=== PATIENT | female | born 1955 | race African-American/Black ===

== ENCOUNTER 2018-06-06 14:06 | Inpatient (IN) | payer OTHER ==
[~2018-06-06] VITALS: Ht 170.2 cm; Wt 79.8 kg
[~2018-06-06 14:06] MED LIST: ACET-2619 PO; ALBU3SOL83 IH; ATEN50TA2 PO; CITA20TA15 PO; CLON0.1T42 PO; COL250 PO; DIL1I IVP; DILT60TA94 PO; LOV40I SUBQ; METO-50 PO; MORP4SOL14 IVP; MSCON30 PO; OXYC5TAB3 PO; SACC250C1 PO; [UNRECOGNIZED DRUG - CODE] IVP
[2018-06-06 14:19] VITALS: BP 115/72
--- NOTE | 2018-06-06 14:20 | NUR ---
PT BROUGHT TO ED BED 3
--- NOTE | 2018-06-06 14:25 | NUR ---
63 YO F BIBA FOR N/V, SOB. PER EMS "PT WAS LYING SUPINE AT HOE IN VOMIT" WITH POOR RR NON REBREATHER APPLIED AT 15L/ MIN O2 SAT FROM 80 TO 97. PT WITH LABORED BREATHS AND AUDIBLE BS. RONCHI , WHEEZES NOTED ON AUSCALTATION. ANB SOFT NON TENDER. NO ACTIVE VOMITING AT THIS TIME. BODY WITH RIGID FORM. LLE WITH FULL THICKNESS CIRCUMFERENTIAL WOUND , PITTING EDEMA NOTED TO BILAT FEET. PT ALERT AND ORINTED TO NAME PLACE AND EVENT. ER MD MADE AWARE, PT PLACED IN GOWN. PT POSITIONED FOR COMFORT, WILL CONTINUE TO MONITOR.
[2018-06-06] MEDS ORDERED: NACL 0.9% 1,000 ML IV SCH ×2 (14:41→18:48)
[2018-06-06] MEDS ORDERED: PIPERACILLIN/TAZOBACTAM 3.375 GM in DEXTROSE 5% 50 ML IV ONE (14:45)
[2018-06-06] MEDS ORDERED: IPRATROPIUM 0.02% 0.5 MG/2.5 ML NEBU INH ONE (14:45)
[2018-06-06] MEDS ORDERED: methylPREDNISolone SS 125 MG/2 ML VIAL IVP ONE (14:45)
[2018-06-06] MEDS ORDERED: ALBUTEROL 0.083% 2.5 MG/3 ML NEBU INH ONE (14:45)
[2018-06-06] MEDS ORDERED: CLINDAMYCIN 900 MG in DEXTROSE 5% 100 ML IV ONE (14:45)
[2018-06-06] MEDS ORDERED: HYDROmorphone PFS 2 MG/ML SYR IM ONE (14:55)
[2018-06-06] MEDS ORDERED: LORazepam 2 MG/ML VIAL IM/IVP ONE (14:55)
--- NOTE | 2018-06-06 15:03 | NUR ---
RT AT BEDSIDE
--- NOTE | 2018-06-06 15:19 | NUR ---
TIME OUT PREFORMED FOR RIGHT INTERNAL JUGULAR VEIN C-LINE PLACEMENT WITH DR PEREZ, OCCUPATIONAL PHYSICIAN AND RN AT BEDSIDE. ALL AGREE.
[2018-06-06 15:29] LABS: HEMOGLOBIN 12.2 g/dL (12.0-16.0); MEAN CORPUSCULAR HEMOGLOBIN 24 pg (27-31); MEAN CORPUSCULAR HGB CONC 31 g/dL (33-37); PLATELET COUNT (AUTO) 363 K/uL (140-450); RED BLOOD CELL COUNT(AUTO) 5.06 MIL/uL (4.20-5.40); RED CELL DISTRIBUTION WIDTH 20.5 % (11.6-13.7); WHITE BLOOD COUNT (AUTO) 10.5 K/uL (4.8-10.8)
--- NOTE | 2018-06-06 15:30 | NUR ---
3 HEP LOCKS USED FOR CENTRAL LINE PLACEMENT WITH DR PEREZ
[2018-06-06 15:35] LABS: CARBON DIOXIDE 25.7 mmol/L (21-32); CREATININE 1.3 mg/dL (0.6-1.3); POTASSIUM 3.7 mmol/L (3.5-5.1)
[2018-06-06 15:41] LABS: ALBUMIN 2.6 g/dL (3.4-5.0); TOTAL BILIRUBIN 1.6 mg/dL (0.0-1.0)
[2018-06-06 15:55] LABS: LYMPHOCYTES % (MANUAL) 7 % (20-46)
[2018-06-06 15:56] LABS: PROTHROMBIN TIME 11.6 secs (10.8-13.4)
[2018-06-06 15:57] LABS: AMYLASE 146 U/L (25-115); LIPASE 340 U/L (73-393)
[2018-06-06 16:02] LABS: FIBRINOGEN > 500 mg/dL (200-400)
--- NOTE | 2018-06-06 16:02 | NUR ---
XRAY AT BEDSIDE
[2018-06-06 16:07] LABS: D-DIMER 3050 ng/ml (0-400)
[2018-06-06 16:09] LABS: CREATINE KINASE MB 3.7 ng/mL (0-3.6)
[2018-06-06 16:09] LABS: APPEARANCE,URINE CLEAR (CLEAR); BILIRUBIN,URINE 1+ (NEGATIVE); BLOOD, URINE NEGATIVE (NEGATIVE); COLOR,URINE YELLOW (YELLOW); LEUKOCYTE ESTERASE ,URINE NEGATIVE (NEGATIVE); NITRITE, URINE NEGATIVE (NEGATIVE); PH,URINE 5.5 (5.0-9.0); UGLUCOSE NEGATIVE (NEGATIVE)
[2018-06-06 16:13] LABS: RBC,URINE 0-5 (RARE) /HPF (0-5)
[2018-06-06] MEDS ORDERED: PIPERACILLIN/TAZOBACTAM 3.375 GM VIAL IV ONE ×2 (16:28→21:05)
[2018-06-06] MEDS ORDERED: CLINDAMYCIN 900 MG/6 ML VIAL IV ONE (16:28)
--- NOTE | 2018-06-06 17:46 | NUR ---
DAUGHTER AT BEDSIDE FELICITAS-[phone]- DAUGHTER RJ - [phone] -
--- NOTE | 2018-06-06 18:08 | NUR ---
TOLD THAT WE HAVE AUTHORIZATION FROM [facility] TO ADMIT
[2018-06-06] MEDS ORDERED: ONDANSETRON 4 MG/2 ML VIAL IVP PRN (18:50)
[2018-06-06] MEDS ORDERED: BLOOD GLUCOSE MONITORING 1 DEV DEV FS SCH (18:50)
[2018-06-06] MEDS ORDERED: INSULIN REGULAR, HUMAN 100 UNIT in NACL 0.9% 100 ML IV SCH ×2 (18:50)
[2018-06-06] MEDS ORDERED: MORPHINE SULFATE 2 MG/ML SYR IVP PRN (18:50)
[2018-06-06] MEDS ORDERED: ACETAMINOPHEN 325 MG TAB PO PRN (18:50)
[2018-06-06] MEDS ORDERED: HYDROcodone/APAP 5/325 MG 1 TAB TAB PO PRN (18:50)
[2018-06-06] MEDS ORDERED: LORazepam 2 MG/ML VIAL IVP PRN (18:50)
[2018-06-06] MEDS ORDERED: DEXTROSE 50% 50 ML SYR IVP PRN ×2 (18:50→20:30)
[2018-06-06] MEDS ORDERED: MORPHINE SULFATE 4 MG/ML SYR IVP PRN (19:00)
[2018-06-06] MEDS ORDERED: HYDROmorphone 1 MG/ML AMP IVP PRN (19:00)
[2018-06-06] MEDS ORDERED: DOCUSATE SODIUM 250 MG GELCAP PO PRN (19:00)
[2018-06-06] MEDS ORDERED: cloNIDine 0.1 MG TAB PO PRN (19:00)
[2018-06-06] MEDS ORDERED: VANCOMYCIN PER PHARMACY MC PRN (19:00)
[2018-06-06] MEDS ORDERED: DIPHENHYDRAMINE 25 MG IVP PRN (19:00)
[2018-06-06] MEDS ORDERED: ALBUTEROL 0.083% 2.5 MG/3 ML NEBU INH SCH (19:00)
[2018-06-06] MEDS ORDERED: OXYCODONE HCL 5 MG PO PRN (19:00)
--- NOTE | 2018-06-06 19:30 | NUR ---
ADMITTED 63 YEARS OLD FEMALE FROM ER VIA [facility], ADMITTED FOR N/V AND SOB. SEE NURSING ADMISSION ASSESSMENT AND HISTORY. PICTURES TAKEN IN ER, AWAITING TO BRING IT UP. CARE BOARD NOTED. CALL LIGHT WITHIN REACH.
--- NOTE | 2018-06-06 19:34 | NUR ---
Patient will be admitted to care of Dr. Gr. Admited to [facility]. Will go to room 110a. Belongings list completed. Report to Shey mancilla.
[2018-06-06] MEDS ORDERED: INSULIN LISPRO SLIDING SCALE 100 UNITS/ML VIAL SUBQ PRN (20:30)
[2018-06-06] MEDS: ALBUTEROL SULFATE/IPRATROPIU 3 ML SOL IH SCH (20:38)
[2018-06-06] MEDS ORDERED: VANCOMYCIN 1,500 MG in DEXTROSE 5% 500 ML IV SCH (20:45)
--- NOTE | 2018-06-06 20:52 | NUR ---
SPOKE W/ DR. FERNANDEZ AND SAID TO D/C ALBUTEROL Q6H AND JUST KEEP DUONEB Q6H
[2018-06-06] MEDS ORDERED: ENOXAPARIN 40 MG/0.4 ML SYR SUBQ SCH (21:00)
[2018-06-06] MEDS: MORPHINE TAB ER 30 MG TABER PO SCH (21:00)
[2018-06-06] MEDS ORDERED: METOPROLOL TARTRATE 150 MG PO SCH (21:00)
[2018-06-06] MEDS ORDERED: VANCOMYCIN 1,000 MG VIAL ONE (21:04)
[2018-06-06] MEDS ORDERED: VANCOMYCIN 500 MG VIAL ONE (21:05)
[2018-06-06] MEDS: BLOOD GLUCOSE MONITORING 1 DEV DEV FS SCH (21:22)
[2018-06-06] MEDS: PIPERACILLIN/TAZOBACTAM 3.375 GM in DEXTROSE 5% 50 ML IV SCH (21:22)
--- NOTE | 2018-06-06 21:30 | NUR ---
REFUSE NGT INSERTION, AWARE.
[2018-06-06] MEDS ORDERED: diphenhydrAMINE 50 MG/ML VIAL IVP PRN (21:45)
[2018-06-06] MEDS ORDERED: PNEUMOCOCCAL VACCINE 23 MCG/0.5 ML VIAL IMVAC SCH (23:05)
[2018-06-07] MEDS ORDERED: DILTIAZEM HCL 60 MG PO SCH
[2018-06-07] MEDS ORDERED: PIPERACILLIN/TAZOBACTAM 2.25 GM in DEXTROSE 5% 50 ML IV SCH ×2
[2018-06-07] MEDS: ALBUTEROL SULFATE/IPRATROPIU 3 ML SOL IH SCH ×6 (00:13→22:55)
--- NOTE | 2018-06-07 00:24 | NUR ---
SAO2 DECREASED TO 89% PLACED ON 6LPM OXYMIZER, HR-116, SAO2-93%, PT STILL TACHYPNEA RR-28-32BPM
[2018-06-07 00:25] VITALS: BP 115/66
[2018-06-07] MEDS: DILTIAZEM 60 MG TAB PO SCH ×4 (01:18→17:28)
[2018-06-07] MEDS ORDERED: PIPERACILLIN/TAZOBACTAM 3.375 GM VIAL IV ONE (04:31)
[2018-06-07] MEDS: PIPERACILLIN/TAZOBACTAM 3.375 GM in DEXTROSE 5% 50 ML IV SCH (04:32)
[2018-06-07 04:49] VITALS: BP 112/73
--- NOTE | 2018-06-07 04:53 | NUR ---
REPOSITIONED. VITAL SIGNS STABLE. AFEBRILE. ASLEEP EASILY AROUSABLE. CALL LIGHT WITHIN REACH.
[2018-06-07] MEDS: BLOOD GLUCOSE MONITORING 1 DEV DEV FS SCH ×4 (05:36→20:42)
[2018-06-07 07:30] LABS: ALBUMIN 1.9 g/dL (3.4-5.0); ANION GAP 14.2 (8-16); CARBON DIOXIDE 23.9 mmol/L (21-32); CREATININE 1.9 mg/dL (0.6-1.3); POTASSIUM 4.1 mmol/L (3.5-5.1); TOTAL BILIRUBIN 1.3 mg/dL (0.0-1.0)
--- NOTE | 2018-06-07 07:32 | NUR ---
ENDORSED CARE AT BEDSIDE WITH BEVERLY LEWIS, PATIENT IN STABLE CONDITION. Addendum: 06/07/18 at 0733 by Alyssa Rose RN ENDORSED CARE AT BEDSIDE WITH LIOR LEWIS, PATIENT IN STABLE CONDITION.
[2018-06-07 07:33] LABS: WHITE BLOOD COUNT (AUTO) 17.6 K/uL (4.8-10.8)
[2018-06-07 07:34] LABS: HEMOGLOBIN 11.5 g/dL (12.0-16.0); MEAN CORPUSCULAR HEMOGLOBIN 24 pg (27-31); MEAN CORPUSCULAR HGB CONC 31 g/dL (33-37); MEAN CORPUSCULAR VOLUME 77.1 fL (80-94); PLATELET COUNT (AUTO) 315 K/uL (140-450); RED CELL DISTRIBUTION WIDTH 20.2 % (11.6-13.7)
--- NOTE | 2018-06-07 07:35 | NUR ---
RECEIVED PT FROM PAPER FINAL INSPECTOR NURSE, BLAYNE, PT IS AWAKE AND ON A HIGH WINSLOW'S, SIDE RAILS ARE UP AND CALL LIGHT WITHIN REACH, PT IS ON OXYMIZER AT 6L, IN PLACE, HAS AN IV LINE ON THE RT IJ TRIPLE LUMEN, INTACT AND MOLINA CATHETER IN PLACE. FALL PRECAUTION INITIATED AND ENFORCED. PT HAS A OPEN DEEP TISSUE WOUNDS ON THE RT LOWER LEG AND RT HEEL, WITH DRESSING IN PLACE. NO SIGN OF DISTRESS NOTED ON THE PT. WILL CONTINUE TO MONITOR.
[2018-06-07 07:40] LABS: LYMPHOCYTES % (MANUAL) 6 % (20-46); MONOCYTES % (MANUAL) 6 % (5-12)
[2018-06-07 08:00] VITALS: BP 120/75
--- NOTE | 2018-06-07 08:20 | NUR ---
PT IS IN MILD DISTRESS. SUCTIONED PT USING NASAL CATHETER GOT SCANT AMOUNT OF THICK WHITE SECRETIONS. RN AWARE HHN TX GIVEN. PT VERBALIZED FELLING A LOT BETTER. PT BACK ON OXIMIZER. WILL CONTINUE TO MONITOR.
[2018-06-07] MEDS ORDERED: ASPIRIN 81 MG TAB.CHEW PO SCH (09:00)
[2018-06-07] MEDS ORDERED: CITALOPRAM 20 MG TAB PO SCH (09:00)
[2018-06-07] MEDS ORDERED: ENOXAPARIN 40 MG/0.4 ML SYR SUBQ SCH (09:00)
--- NOTE | 2018-06-07 09:08 | NUR ---
PATIENT HAS BEEN SCREENED AND CATEGORIZED HIGH NUTRITION RISK. PATIENT WILL BE SEEN WITHIN 1-2 DAYS OF ADMISSION. 06/07/18 06/08/[address]
--- NOTE | 2018-06-07 09:30 | NUR ---
WOUND CARE WAS DONE BY WOUND CARE NURSE, ASSISTED, AND REINFORCED WITH DRESSING. WOUND CULTURE WAS DONE ALSO AND SAMPLE WAS SENT TO LAB.
[2018-06-07] MEDS: LACTOBACILLUS RHAMNOSUS GG 1 EACH CAP PO SCH ×2 (09:57→20:43)
[2018-06-07] MEDS: MORPHINE TAB ER 30 MG TABER PO SCH ×2 (09:59→20:44)
[2018-06-07] MEDS: METOPROLOL 50 MG TAB PO SCH ×2 (10:01→20:50)
--- NOTE | 2018-06-07 10:02 | NUR ---
CM NOTE PER [facility]/[employer] MANAGEMENT CM COORDINATOR TRISTIN PH# [phone] [phone], REVIEWS SHOULD ONLY BE SENT TO [facility]. ADMISSION CHART REVIEW DONE. INITIAL REVIEW FAXED TO [facility] [phone] PH# [phone] BLU EXT [phone].
[2018-06-07] MEDS ORDERED: NON-FORMULARY ITEM (Acetaminophen (Tylenol) 650 MG) PO PRN (11:20)
--- NOTE | 2018-06-07 11:30 | NUR ---
DR. STEPHENS MADE A VERBAL ORDER FOR A HEPARIN DRIP FOR THE PT. WILL CARRY OUT ORDER.
[2018-06-07] MEDS ORDERED: HEPARIN PER PHARMACY MC PRN (11:35)
[2018-06-07] MEDS ORDERED: ALBUTEROL SULFATE/IPRATROPIU 3 ML SOL IH PRN (11:40)
[2018-06-07] MEDS ORDERED: ACETYLCYSTEINE 10% (100 MG/ML) 100 MG/ML VIAL INH PRN (11:45)
[2018-06-07] MEDS ORDERED: ACETAMINOPHEN 325 MG TAB PO PRN (11:55)
[2018-06-07 12:00] VITALS: BP 120/75
--- NOTE | 2018-06-07 12:02 | NUR ---
PATIENT PRESENTING WITH LABORED BREATHING ASSESSMENT DONE NASOTRACHEAL SUCTION REQUIRED AT THIS TIME USING STERILE TECHNIQUE APPLIED LUBRICANT TO THE DISTAL END OF A 14 FR SUCTION CATHETER INSERTED INTO RIGHT NARES X 2 AND LEFT NARES X1 OBTAINING COPIOUS THICK YELLOW SECRETIONS PRE AND POST OXYGENATION PROVIDED TOLERATED PROCEDURE WELL WITHOUT INCIDENT FOLLOWED BY HHN THERAPY REPORTED FINDING TO DR CHAZ STEPHENS NEW ORDERS CHANGE MUCOMYST FREQUENCY FOR Q6PRN TO Q4 X 3 DAYS
--- NOTE | 2018-06-07 12:14 | NUR ---
WOUND CARE EVALUATION NOTE: REASON FOR EVALUATION: RLE WOUND SKIN ASSESSMENT DONE WITH THIS 63 Y/O FEMALE PT ADMITTED FROM HOME TO [facility] WITH INITIAL DX SOB. PAST MEDICAL HX INCLUDES HX OF CVA AND DYSPHAGIA, DVT AND PULMONARY EMBOLI, CARDIAC ARRHYTHMIA S/P CARDIAC PACER AND CHRONIC WOUND TO RLE. ALL ABOVE INFORMATION OBTAINED FROM ADMISSION H&P. AND PT. PT IS AAX4. PER PT THAT SHE HAS BEEN FOLLOWED VASCULAR/ SHADE CLOTH FINISHER TO RIGHT LOWER LEG WOUND WITH RECENT DEBRIDEMENT. PT. ADMITTED WITH MULTIPLE PRESSURE ULCERS. LABS ARE WBC 17.6, H/H 11.5/37, GLUCOSE 165 AND ALBUMIN 1.9. PT IS AWAKE. SKIN IS WARM AND DRY. MULTIPLE HEALED SCARS TO HANDS, LEGS AND TRUNK AREA. BLE NO HAIR GROWTH, NO EDEMA. RIGHT DORSAL PEDAL PULSES PRESENT AND WEAK. POOR CAPILLARY REFILLED. F/C PATENT WITH MODERATE AMOUNT OF DARK YELLOW URINE OUTPUT. INCONTINENT OF BOWEL. PLAN OF CARE DISCUSSED WITH PRIMARY RN AND PT. PT. VERBALIZES UNDERSTAND. DR. STEPHENS AT BED SIDE PLAN DISCUSSED WITH REQUESTING OF VASCULAR/ PODIATRY CONSULT DR. STEPHENS SAID NO NEED AT THIS TIME. INTEGUMENTARY: -WOUND CULTURE TO RLE WOUND -RLE VASCULAR ULCER WITH S/P DEBRIDEMENT FULL THICKNESS TISSUE LOSS WITH LARGE, FULL CIRCUMFERENCE OF RLE 18CM IN LENGTH AND 0.4CM IN DEPTH, WOUND BED IS 100% GRANULATING TISSUE, MOIST, NO ODOR. AREA EXTENDED TO RIGHT HEEL PRESSURE INJURY. RIGHT DORSAL FOOT ISCHEMIA BLACK COLOR, WARM TO TOUCH. PAIN 4/10 -RIGHT HEEL PRESSURE INJURY UN-STAGEABLE 7X6CM, WOUND BED 100% BROWN SOFT SCAB WITH WOUNG EDGE PALE PINK ENTENDTO RLE WOUND, IRREGULAR WOUND SHAPE -RIGHT ISCHIUM PRESSURE INJURY UN-STAGEABLE 3.5X2.5 CM 100 % YELLOW SLOUGH ON WOUND BED, MOIST, NO ODOR -SACRALCOCCYX PRESSURE INJURY STAGE 3, 2X3X0.5CM, WOUND BED IS BLANCHABLE RED, MOIST AND NO ODOR - LEFT ISCHIUM PRESSURE INJURY STAGE 1, 3X3 CM SKIN THIN AND FRAGILE -ABDOMEN DISTENTED, TENDER TO TOUCH. -LLE DRYNESS, LEFT HEEL BLANCHABLE REDNESS RECOMMENDATIONS: -CLEANSE RIGHT LOWER LEG WOUND WITH WOUND CARE SOLUTIONS, PAT DRY, APPLY THERAHONEY SHEET, COVER WITH DRY DRESSING AND WRAP WITH KERLIX ROLLS QOD AND PRN IF SOILING -CLEANSE RIGHT ISCHIUM AND SACRALCOCCYX WOUNDS WITH WOUND CARE SOLUTIONS, PAT DRY, APPLY THERAHONEY SHEET, COVER WITH TATUM DRESSING CHANGE QOD AND PRN IF SOILING -CLEANSE LEFT ISCHIUM WOUND WITH WOUND CARE SOLUTIONS, PAT DRY, COVER WITH OPTICFORM AND CHANGE PRN IF SOILING -APPLY HYDRAGUARD TO LLE AND LEFT HEEL BIDWC - HEEL RAISER TO BILATERAL HEELS -OFFLOAD BILATERAL HEELS BY PLACING PILLOWS UNDER CALVES UNLESS OTHERWISE CONTRAINDICATED -PRESSURE REDISTRIBUTION SURFACE -TURN AND REPOSITION Q2H, OFFLOAD SACROCOCCYX AND R/L ISCHIUM -UPON DISCHARGE,PLEASE CONTINUE TO FOLLOW VASCULAR/PODIATRY CARE PREVIOUS ARRANGED. -HOME HEALTH CARE NURSE TO FOLLOW UP WOUND CARE UPON DISCHARGE. ALL ABOVE RECOMMENDATIONS DISCUSSED WITH PRIMARY RN. WILL FOLLOW UP PT Q7-10 DAYS. PLEASE CONTACT WOUND CARE NURSE FOR ANY QUESTION AND CHANGE OF WOUND CONDITION. Addendum: 06/07/18 at 1241 by Lucy Hughes (Grace) RN PT. ALSO HAS HX OF OSTEOMYELITIS TO RIGHT ANKLE. CENTRAL LINE TO RIJ DRESSING DCI. COMORBIDITIES REALTED TO DELAY WOUND HEALING AND FURTHER SKIN BREAKS EXPLAINED TO PT.
--- NOTE | 2018-06-07 12:26 | NUR ---
SPOKE TO [facility] WHO WILL DO THE PULMONARY VQ SCAN FOR THE PT REGARDING THE PROCEDURE AND PT WAS ASKED IF SHE CAN TOLERATE TO BE IN A SUPINE POSITION DURING THE TEST FOR ABOUT 45 MINS WITH HER ARMS OVER HER HEAD AND THE PT SAID THAT SHE CANNOT DO IT, INFORMED DR. STEPHENS ABOUT IT AND SAID TO JUST DOCUMENT THAT THE PT REFUSED IT, INFORMED UBALDO OF WHAT THE DR. STEPHENS SAID AND [facility] ACKNOWLEDGED.
--- NOTE | 2018-06-07 12:29 | NUR ---
SWALLOW EVALUATION IS BEING DONE TO THE PT NOW BY ELAINA GARCIAATOR.
--- NOTE | 2018-06-07 12:34 | NUR ---
PT'S PICTURE OF THE WOUND WAS JUST HANDED ON NOW FROM ER AND PER DIETITIAN ASSISTANT ROSE, ER CHARGE NURSE SAID THAT THEY ALREADY MADE AN INCIDENT REPORT.
--- NOTE | 2018-06-07 12:57 | NUR ---
S.T. BEDSIDE SWALLOW EVAL COMPLETED See report for details. Pt presents with mod-severe oropharyngeal dysphagia c/b labial spillage of nectar thick liquids, delayed pharyngeal swallow response and coughing after swallows of thin and nectar thick liquids. Most notably, however, is pt's respiratory status, in which breathing was labored throughout eval, with O2 via nasal rebreather. Pt is at high risk for aspiration. Recommend: 1) Honey thick Clear liquid diet; given conservatively--only if pt is awake, alert, not SOB and SpO2 >90%. Hold trays otherwise. Strict aspiration precautions. 2) P.O. meds to be crushed and mixed with purees--only if pt is awake, alert, not SOB and SpO2 >90%. Hold trays otherwise. Strict aspiration precautions. 3) S.T. to follow with tx x 2 days/1 week for P.O. trials and monitoring of pt's tolerance of recommended diet textures. Results and recommendations d/w pt and JOSHUA Yeboah, who both communicated understanding. Time in: 1210 Out: 1255 G8996 CK G8997 CK NOMS LEVEL 4
[2018-06-07] MEDS ORDERED: FOAM DRESSING TP SCH (13:00)
[2018-06-07] MEDS: THERAHONEY WOUND DRESSING TP SCH (13:00)
[2018-06-07] MEDS ORDERED: ACETYLCYSTEINE 10% (100 MG/ML) 100 MG/ML VIAL INH SCH ×2 (13:00→16:00)
[2018-06-07] MEDS: HYDRAGUARD CREAM TP SCH (13:00)
--- NOTE | 2018-06-07 13:00 | NUR ---
PT WAS REPOSITIONED AND HYDRAGUARD CREAM WAS APPLIED TO RT ISCHIUM AND REINFORCED WITH OPTIFOAM DRESSING. LLE AND LEFT HEEL WAS REINFORCED WITH HYDRAGUARD CREAM ALSO.
[2018-06-07] MEDS: PIPER/TAZO 3.375GM/D5W PREMIX 50 ML IV SCH ×2 (13:01→20:43)
[2018-06-07] MEDS ORDERED: hePARIN / DEXT 5% PREMIX 250 ML IV SCH (14:00)
[2018-06-07] MEDS: ACETYLCYSTEINE 10% (100 MG/ML) 100 MG/ML VIAL INH SCH ×3 (14:31→22:55)
--- NOTE | 2018-06-07 15:12 | NUR ---
06/07/18 RD INITIAL ASSESSMENT COMPLETED PLEASE REFER TO NUTRITION ASSESSMENT UNDER CARE ACTIVITY FOR ESTIMATED NUTRITIONAL NEEDS. 1. RECOMMEND CCHO 60, NA 2GM DIET TOLERATED. 2. RECOMMEND NURIA BID. 3. RD TO FOLLOW-UP 2-3 DAYS, HIGH RISK. TREY JESUS, RD
--- NOTE | 2018-06-07 15:20 | NUR ---
PT WAS STARTED ON THE HEPARIN DRIP PER PHARMACY PROTOCOL, WITH CHARGE NURSE, PEDRO VERIFYING AND CO-SIGNING, AT A RATE OF 15ML/HR, INTACT AND INFUSING WELL. WILL MONITOR PT.
[2018-06-07 16:00] VITALS: BP 123/80
--- NOTE | 2018-06-07 16:05 | NUR ---
PT IS OUT OF THE ROOM FOR AN ULTRASOUND OF THE ABDOMEN AND PELVIS.
--- NOTE | 2018-06-07 16:30 | NUR ---
PT IS BACK TO ROOM FROM ULTRASOUND OF THE ABDOMEN AND PELVIS WITHOUT CONTRAST. VITAL SIGNS TAKEN AND IS WITHIN NORMAL LIMITS. WILL MONITOR PT.
--- NOTE | 2018-06-07 17:30 | NUR ---
PT WAS TRANSFERRED TO ROOM 123-A AND WAS PLACED IN A WOUND BED. BLOOD GLUCOSE CHECK DONE AND RESULT IS 136, NO INSULIN COVERAGE NEEDED, VITAL SIGNS TAKEN AND IS WITHIN NORMAL LIMITS, MEDICATION GIVEN AND PT TOLERATED IT. NO SIGN OF DISTRESS NOTED AND WILL CONTINUE TO MONITOR PT.
--- NOTE | 2018-06-07 17:41 | NUR ---
ULTRASOUND OF THE BILATERAL LOWER LEGS IS BEING DONE TO PT NOW.
--- NOTE | 2018-06-07 18:16 | NUR ---
EMPTIED PT'S MERCEDES BULB AND DRAINED 30ML., CHARGE NURSE, PEDRO WAS INFORMED. Addendum: 06/07/18 at 1907 by Edilia Mooney RN THE ABOVE NOTE IS FOR A DIFFERENT PT.
--- NOTE | 2018-06-07 19:08 | NUR ---
PT IS OUT OF THE ROOM TO HAVE A CT OF THE ABDOMEN AND PELVIS WITHOUT CONTRAST.
--- NOTE | 2018-06-07 19:15 | NUR ---
ENDORSED PT TO FINAL DRESSING CUTTER NURSE, MADISON FOR CONTINUITY OF CARE. PT IS STABLE AT THIS TIME AND HAVING A BREATHING TREATMENT.
--- NOTE | 2018-06-07 19:16 | NUR ---
REPORT RECEIVED FROM AM SHIFT NURSE. PT STILL OUT FOR CT SCAN. DAUGHTER WAITING IN ROOM.
--- NOTE | 2018-06-07 19:20 | NUR ---
PT IS BACK TO ROOM AND HEPARIN WAS CONNECTED AND RE-STARTED.
--- NOTE | 2018-06-07 19:21 | NUR ---
RECEIVED PT FROM RADIOLOGY. NO SIGNS OF DISTRESS. PT AWAKE & VERBAL, DENIES ANY PAIN. ON O2@6LPM VIA OXYMIZER. CALL LIGHT WITHIN REACH. ENCOURAGED PT TO CALL NURSE FOR ASSISTANCE PRN. PT VERBALIZED AGREEMENT & ABLE TO RETURN DEMONSTRATE PROPER USE OF CALL BUTTON. WILL CONTINUE TO MONITOR.
[2018-06-07 20:00] VITALS: BP 102/62
--- NOTE | 2018-06-07 20:45 | NUR ---
MEDS DUE GIVEN AT THIS TIME. PT ABLE TO MINE MS CONTIN WHOLE TABS WITH APPLESAUCE. NO SIGNS OF ASPIRATION NOTED. PT IS ALERT, VERBAL, PERIODS OF FORGETFULNESS, STATES FEELING SLEEPY. METOPROLOL HELD D/T DECREASED BP. RETURN TO FACTORY CLERK IN PLACE. CALL LIGHT WITHIN REACH. DAUGHTER SITTING AT BEDSIDE.
[2018-06-07 21:14] LABS: CREATINE KINASE MB 3.2 ng/mL (0-3.6)
[2018-06-07] MEDS ORDERED: VANCOMYCIN 1,250 MG in DEXTROSE 5% 250 ML IV SCH (22:00)
[2018-06-07 22:04] LABS: PROTHROMBIN TIME 13.9 secs (10.8-13.4)
--- NOTE | 2018-06-07 22:15 | NUR ---
PTT 48.8 HEPARIN DRIP NO CHANGE PER PROTOCOL. NEXT PTT ORDERED FOR 0330 . WILL CONTINUE TO MONITOR.
--- NOTE | 2018-06-07 22:50 | NUR ---
DR. MCNALLY (ON-CALL FOR DR. ARORA) PAGED RE: CT ABD/PERLVIS RESULT. AWAITING CALL BACK. PT CURRENTLY SLEEPING COMFORTABLY IN BED, RESPIRATIONS EVEN & UNLABORED. FLACC 0.
--- NOTE | 2018-06-07 23:10 | NUR ---
DR. MCNALLY CALLED BACK & READ BACK REPORT OF CT ABD/PELVIS. MD ORDERED TO KEEP PT NPO, DC ALL PO MEDS, & SURGICAL CONSULT WITH DR. CHAIREZ. ORDERS NOTED & CARRIED OUT. PT NOTIFIED & VERBALIZED UNDERSTANDING.
[2018-06-08] VITALS: BP 102/79
--- NOTE | 2018-06-08 01:30 | NUR ---
PT SLEEPING COMFORTABLY IN BED, AROUSABLE BY VOICE. NO SIGNS OF DISTRESS. PT REMAINS NPO. WOUND CARE MATTRESS FUNCTIONING WELL. PT CLEAN & DRY AT THIS TIME. WILL CONTINUE TO MONITOR.
[2018-06-08] MEDS: HYDRAGUARD CREAM TP SCH ×2 (01:43→13:54)
[2018-06-08] MEDS ORDERED: DEXT 5% / NACL 0.45% 1,000 ML IV SCH (01:45)
[2018-06-08] MEDS: ACETYLCYSTEINE 10% (100 MG/ML) 100 MG/ML VIAL INH SCH ×6 (02:59→23:19)
[2018-06-08] MEDS: ALBUTEROL SULFATE/IPRATROPIU 3 ML SOL IH SCH ×6 (02:59→23:17)
[2018-06-08 04:00] VITALS: BP 100/68
--- NOTE | 2018-06-08 04:14 | NUR ---
BLOOD WAS DRAWN FOR PTT. WILL WAIT FOR RESULT.
--- NOTE | 2018-06-08 04:45 | NUR ---
LAB CALLED FOR CRITICAL PTT RESULT 60.7 HEPARIN DRIP NO CHANGE . WILL ORDER FOR NEXT PTT AFTER 24 HRS PER PROTOCOL.
[2018-06-08] MEDS: PIPER/TAZO 3.375GM/D5W PREMIX 50 ML IV SCH ×2 (04:46→13:00)
[2018-06-08] MEDS: METOPROLOL 5 MG/5 ML VIAL IV SCH ×3 (05:43→18:38)
[2018-06-08] MEDS: BLOOD GLUCOSE MONITORING 1 DEV DEV FS SCH ×4 (05:45→20:51)
[2018-06-08 06:41] LABS: HEMATOCRIT 34.3 % (36-48); HEMOGLOBIN 10.5 g/dL (12.0-16.0); MEAN CORPUSCULAR HEMOGLOBIN 24 pg (27-31); MEAN CORPUSCULAR HGB CONC 31 g/dL (33-37); MEAN CORPUSCULAR VOLUME 77.6 fL (80-94); PLATELET COUNT (AUTO) 311 K/uL (140-450); RED BLOOD CELL COUNT(AUTO) 4.41 MIL/uL (4.20-5.40); RED CELL DISTRIBUTION WIDTH 21.1 % (11.6-13.7); WHITE BLOOD COUNT (AUTO) 24.6 K/uL (4.8-10.8)
[2018-06-08 07:18] LABS: ALBUMIN 1.7 g/dL (3.4-5.0); ANION GAP 13.1 (8-16); CARBON DIOXIDE 25.7 mmol/L (21-32); CREATININE 3.2 mg/dL (0.6-1.3); POTASSIUM 4.8 mmol/L (3.5-5.1); TOTAL BILIRUBIN 1.3 mg/dL (0.0-1.0)
--- NOTE | 2018-06-08 07:25 | NUR ---
HEPARIN DRIP DISCONTINUED PER MD ORDER.
--- NOTE | 2018-06-08 07:30 | NUR ---
REPORT GIVEN TO AM SHIFT NURSE FOR CONTINUITY OF CARE.
[2018-06-08 07:31] LABS: LYMPHOCYTES % (MANUAL) 8 % (20-46); MONOCYTES % (MANUAL) 6 % (5-12)
--- NOTE | 2018-06-08 07:31 | NUR ---
REPORT RECEIVED FROM LEAF CONDITIONER NURSE, PT SLEEPING QUIETLY IN NAD, RESP EVEN UNLABORED ON 6L OXYMIZER, SKIN WARM DRY COLOR WNL, PT AROUSES BY VOICE, APPEARS IN NO PAIN OR DISCOMFORT, PLAN OF CARE REVIEWED, NO IMMEDIATE NEEDS AT THIS TIME, ALL SAFETY MEASURES IN PLACE, WILL CONTINUE TO MONITOR.
[2018-06-08 08:00] VITALS: BP 104/73
--- NOTE | 2018-06-08 08:05 | NUR ---
SATURATION 97% ON SUPPLEMENTAL OXYGEN AT 5.5 LPM VIA OXYMIZER POST HHNTHERAPY TITRATED FIO2 TO 4 LPM MARY/RN NOTIFIED EMERGENCY CREW SUPERVISOR TO MONITOR
--- NOTE | 2018-06-08 09:01 | NUR ---
DR CHAIREZ CALLED, PT CONDITION UPDATED, PT TO REMAIN NPO.
--- NOTE | 2018-06-08 10:05 | NUR ---
BED BATH GIVEN, PERICARE DONE, MOLINA CARE DONE, LINEN AND GOWN CHANGED, PT MINE WELL
--- NOTE | 2018-06-08 10:45 | NUR ---
DR LOVE AT BEDSIDE
--- NOTE | 2018-06-08 11:15 | NUR ---
IN TO DO BLOOD GAS BUT PT IS TAKEN BY RADIOLOGY FOR CT SCAN.
--- NOTE | 2018-06-08 11:25 | NUR ---
DR STEPHENS AT BEDSIDE, PT TO CT
--- NOTE | 2018-06-08 11:39 | NUR ---
FAXED CONCURRENT REVEIW TO [facility] [phone] PHONE [phone] BLU
[2018-06-08 12:00] VITALS: BP 117/60
[2018-06-08] MEDS ORDERED: FUROSEMIDE 20 MG/2 ML VIAL IVP SCH (12:00)
--- NOTE | 2018-06-08 12:30 | NUR ---
RJ AND DAUGHTER AT BEDSIDE, SPEAKING WITH DR STEPHENS REGARDING PT CONDITION, UPSET THAT PT WAS NOT TAKEN TO [facility], DAUGHTER AND ARGUING, WANTS TO SPEAK TO CM REGARDING TRANSFER.
--- NOTE | 2018-06-08 12:35 | NUR ---
ALVARO FROM [facility] CALLED TO SPEAK WITH RJ, NOT AT BEDSIDE AT THIS TIME.
[2018-06-08] MEDS: THERAHONEY WOUND DRESSING TP SCH (13:00)
--- NOTE | 2018-06-08 13:55 | NUR ---
DR SAVAGE AT BEDSIDE, ZOSYN DOSE TO BE CHANGED TO 2.25G, AND TO HOLD LASIX PER DR SAVAGE.
[2018-06-08] MEDS ORDERED: PIPER/TAZO 2.25GM/D5W PREMIX 50 ML IV SCH (14:01)
--- NOTE | 2018-06-08 14:20 | NUR ---
WOUND CARE DONE PER WOUND CARE NURSE ORDER
[2018-06-08] MEDS: DEXT 5% /NACL 0.9% 1,000 ML IV SCH ×2 (14:45→23:50)
--- NOTE | 2018-06-08 15:52 | NUR ---
OROPHARYNGEAL SUCTION FOR SMALL THICK YELLOW SECRETIONS
--- NOTE | 2018-06-08 15:55 | NUR ---
ULTRASOUND AT BEDSIDE KIDNEY US
[2018-06-08 16:00] VITALS: BP 108/68
--- NOTE | 2018-06-08 16:55 | NUR ---
BEDSIDE GLUCOSE 106, NO INSULIN NEEDED PER SLIDING SCALE, PT SLEEPING QUIETLY IN NAD, RESP EVEN UNLABORED, MOLINA TO GRAVITY WITH MINIMAL BLOODY URINE. IVF INFUSING TO CVP LINE, SITE WNL, WILL CONTINUE TO MONITOR
--- NOTE | 2018-06-08 17:26 | NUR ---
DR CAMPO TO BEDSIDE
--- NOTE | 2018-06-08 18:41 | NUR ---
DR CHAIREZ CALLED TO REPORT THAT HE SPOKE WITH FAMILY ON THE PHONE (DAUGHTER JAE AND PATIENT'S ). PER DR CHAIREZ, FAMILY REFUSED ANY SURGERY AT [facility], FAMILY WANTS A SECOND OPINION, AND FAMILY WANTS THE PATIENT TO BE TRANSFERRED TO [facility]. WILL NOTIFY ATTENDING
--- NOTE | 2018-06-08 18:48 | NUR ---
DR RIZZO NITRIC ACID PLANT OPERATOR FOR DR STEPHENS NOTIFIED OF FAMILY'S REFUSAL TO HAVE SURGERY AND REQUESTS FOR SECOND OPINION AND REQUEST FOR TRANSFER TO [facility]
--- NOTE | 2018-06-08 19:05 | NUR ---
[facility] ROWE AT BEDSIDE.
--- NOTE | 2018-06-08 19:20 | NUR ---
DAUGHTER ASKING QUESTIONS REGARDING PT'S DIAGNOSIS AND CT RESULT, DAUGHTER IS CONCERNED THAT PT'S HEART IS NOT WELL ENOUGH FOR SURGERY, SHE WORRIES THAT PT MAY NOT SURVIVE THE SURGERY, DAUGHTER STATES SHE AND HER FAMILY DO NOT WANT THE SURGERY DONE AT THIS TIME, THEY WANT A SECOND OPINION, AND POSSIBLE TRANSFER TO [facility]. PT'S WAS ON THE PHONE DURING THE CONVERSATION AND KEEPS REPEATING THAT PT "NEEDS TO BE TRANSFERRED TO [facility]" ALSO STATED HE MAY TAKE HER TO [facility] HIMSELF IN HIS PRIVATE VEHICLE IF SHE CAN'T BE TRANSFERRED BY AMBULANCE, AND DAUGHTER WAS ENCOURAGED NOT TO TAKE THE PATIENT OUT OF THE HOSPITAL AMA, RISKS EXPLAINED TO DAUGHTER AND .
--- NOTE | 2018-06-08 19:25 | NUR ---
* ST TX NOTE * Pt seen at bedside. Pt asleep upon entering room. Upon awakening, pt alert and cooperative, but lethargic at this time, reporting no c/o pain currently. Pt tolerating 0/1 alternating PO trial of 3-4 CCs of puree apple sauce via a spoon, presenting with decreased AP bolus transit and severely delayed swallow initiation (over 60+ seconds). Pt requiring alternation of liquids and solids in order to initiate swallow of puree textures. Pt thus tolerating 2/2 alternating PO trials of honey-thickened apple juice 3-4 CCs at a time via a spoon w/o s/s of aspiration, but also demonstrating delayed AP bolus transit and moderate delay in swallow initiation ranging from 15-23 seconds. At this time, pt presenting with moderate to severe oropharyngeal dysphagia, and appears to be at risk for premature spillage in addition to aspiration. It is recommended pt remain NPO at this time pending further successful therapeutic feeding trials. Recommend: - CONTINUE NPO - Complete frequent oral care 2/[address] to follow up 2x/week for 1 more week. G8997 CK NOMS Level 4 Time In/Out: 18:40 - 19:10
--- NOTE | 2018-06-08 19:30 | NUR ---
REPORT GIVEN TO HEALTHCARE REPRESENTATIVE NURSE, PT IN STABLE CONDITION.
--- NOTE | 2018-06-08 19:31 | NUR ---
REPORT RECEIVED FROM AM SHIFT NURSE. RT & DAUGHTER AT BEDSIDE. PT IN BED, LETHARGIC, OPENS EYES TO VOICE, UNABLE TO MAKE NEEDS KNOWN. CALL LIGHT WITHIN REACH. WILL CONTINUE TO MONITOR.
[2018-06-08 20:00] VITALS: BP 94/58
[2018-06-08] MEDS: PIPER/TAZO 2.25GM/D5W PREMIX 50 ML IV SCH (20:52)
--- NOTE | 2018-06-08 20:52 | NUR ---
DUE MEDS GIVEN AT THIS TIME. PT SLEEPING IN BED, OPENS EYES TO AUDITORY STIMULI, UNABLE TO MAKE NEEDS KNOWN. RESPIRATIONS EVEN & UNLABORED. CALL LIGHT WITHIN REACH. WILL CONTINUE TO MONITOR.
--- NOTE | 2018-06-08 23:47 | NUR ---
NOTIFIED BY SLIP DUMPER RE: UNCONTROLLED AFIB. ASSESS PT, PT OBTUNDED, OPENS EYES TO AUDITORY STIMULI, RESPIRATIONS EVEN & UNLABORED, APICAL PULSE 132 IRREGULAR, BP 101/56. DR. RIZZO (ON-CALL FOR DR. STEPHENS) PAGED.
[2018-06-09] VITALS: BP 101/56
[2018-06-09] MEDS ORDERED: NACL 0.9% 500 ML IV ONE (00:10)
--- NOTE | 2018-06-09 00:10 | NUR ---
DR. RIZZO CALLED BACK & NOTIFIED OF PIT SHOVEL OPERATOR READINGS. MD ORDERED TO GIVE NS 500ML BOLUS, CMP, MG, & P, STAT. ALL ORDERS NOTED.
--- NOTE | 2018-06-09 00:16 | NUR ---
IV NS 500ML BOLUS INITIATED AT THIS TIME. PT REMAINS OBTUNDED, OPENS EYES TO AUDITORY STIMULI, NONVERBAL. RESPIRATIONS EVEN & UNLABORED. WILL CONTINUE TO MONITOR.
[2018-06-09] MEDS: HYDRAGUARD CREAM TP SCH ×2 (01:00→11:20)
[2018-06-09 01:10] LABS: ANION GAP 12.8 (8-16); CARBON DIOXIDE 24.2 mmol/L (21-32); CREATININE 3.8 mg/dL (0.6-1.3)
[2018-06-09 01:18] LABS: ALBUMIN 1.7 g/dL (3.4-5.0); MAGNESIUM 1.9 mg/dL (1.8-2.4); PHOSPHORUS 7.3 mg/dL (2.5-4.9); TOTAL BILIRUBIN 1.2 mg/dL (0.0-1.0)
--- NOTE | 2018-06-09 02:09 | NUR ---
SPOKE TO DR. RIZZO RE: PERSISTENT UNCONTROLLED AFIB WITH [id number] BPM. ALSO READ BACK CMP, MAGNESIUM, & PHOSPHORUS RESULTS, & CURRENT BP OF 113/83. ORDER TO GIVE CARDIZEM IVP. ORDER NOTED. PT REMAINS OBTUNDED, OPENS EYES TO AUDITORY & TACTILE STIMULI, THEN CLOSES SHORTLY AFTER. AWAITING PHARMACY VERIFICATION.
[2018-06-09] MEDS ORDERED: DILTIAZEM 25 MG/5 ML VIAL IVP SCH (02:10)
--- NOTE | 2018-06-09 02:36 | NUR ---
BP 113/83, HR 132. CARDIZEM 10MG IVP ADMINISTERED. PRE & POST CARDIZEM TELE STRIPS OBTAINED. PT REMAINS OBTUNDED, RESPIRATIONS EVEN & UNLABORED, OPENS EYES TO VOICE & TOUCH.
[2018-06-09] MEDS: ALBUTEROL SULFATE/IPRATROPIU 3 ML SOL IH SCH ×2 (03:15→07:49)
[2018-06-09] MEDS: ACETYLCYSTEINE 10% (100 MG/ML) 100 MG/ML VIAL INH SCH ×2 (03:15→07:49)
--- NOTE | 2018-06-09 03:40 | NUR ---
SPOKE TO DR RIZZO ON THE PHONE (INSPECTOR FINAL ASSEMBLY CONVEYOR LINE FOR DR. STEPHENS), & NOTIFIED HIM OF PERSISTENT UNCONTROLLED A-FIB WITH HR 127-140BPM POST CARDIZEM, BP 105/85. PER DR, NO NEW ORDERS AT THIS, & CONTINUE TO MONITOR PT ON TELE. PT HAS NO CHANGE IN CONDITION, REMAINS OBTUNDED, NONVERBAL, OPENS EYES TO VOICE & TOUCH. RESPIRATIONS EVEN & UNLABORED. RT AT BEDSIDE. IV D5NS INFUSING @ 100ML/HR TO RT EJ CENTRAL IV. SITE IS INTACT, NO SIGNS OF COMPLICATIONS.
[2018-06-09 04:00] VITALS: BP 105/85
[2018-06-09] MEDS: PIPER/TAZO 2.25GM/D5W PREMIX 50 ML IV SCH (05:08)
[2018-06-09] MEDS: METOPROLOL 5 MG/5 ML VIAL IV SCH ×2 (05:50)
--- NOTE | 2018-06-09 05:50 | NUR ---
METOPROLOL ADMINISTERED AT THIS TIME. BP111/80, AP130. PT OPENS EYES TO VOICE & TOUCH. RESPIRATIONS EVEN & UNLABORED. ABD SOFT, NON-DISTENDED. WILL CONTINUE TO MONITOR.
[2018-06-09] MEDS: BLOOD GLUCOSE MONITORING 1 DEV DEV FS SCH ×2 (06:11→11:37)
--- NOTE | 2018-06-09 07:05 | NUR ---
REPORT GIVEN TO AM SHIFT NURSE. SPOUSE & DAUGHTER ARRIVED TO VISIT PT.
--- NOTE | 2018-06-09 07:06 | NUR ---
REPORT RECEIVED FROM ANIMAL CYTOLOGIST NURSE AT BEDSIDE FOR CONTINUITY OF CARE. AND DAUGHTER AT BEDSIDE. PT IN BED, LETHARGIC, OPENS EYES TO VOICE, UNABLE TO MAKE NEEDS KNOWN. PATIENT HAS RIGHT IJ TRIPLE LUMEN, PATENT, INTACT, DRESSING DRY AND INTACT, INFUSING D5 NS @ 100 ML/HR. PATIENT HAS MOLINA DRAINING TO GRAVITY. PATIENT ON 3.5 L O2 VIA OXIMIZER, BREATHING EVEN AND UNLABORED. UPDATED BOARD. UPDATED PATIENT'S FAMILY WITH PLAN OF CARE. THEY INQUIRE TO WHEN PATIENT WILL BE TRANSFERRED TO [facility]. INFORMED THEM THAT ORDER IS IN BUT [employer] DIE MAKER AND SOCIAL WORKERS WILL BE WORKING ON THE PAPERWORK AND WILL INFORM RN WHEN TRANSFER IS POSSIBLE. PATIENT IS ON WOUND BED. SAFETY AND ASPIRATION PRECAUTIONS IN PLACE, CALL LIGHT WITHIN REACH. WILL CONTINUE TO MONITOR PATIENT.
--- NOTE | 2018-06-09 07:30 | NUR ---
RT IN TO GIVE PATIENT HER BREATHING TREATMENT. DAUGHTER JAE AND RJ AT BEDSIDE. REPEATED HIS DEMAND THAT PATIENT BE TRANSFERRED TO [facility]. RN VERBALIZED UNDERSTANDING, INFORMED HIM OF LAB SUPPORT TECHNICIAN AND MINE EXPERT OFFICE HOURS. HE VERBALIZED UNDERSTANDING.
[2018-06-09 07:55] VITALS: BP 119/79
--- NOTE | 2018-06-09 08:06 | NUR ---
PROVIDED INFORMATION FOR PATIENT'S DAUGHTER AND ABOUT ASPIRATION PNEUMONIA, PATIENT'S DIAGNOSIS. THEY VERBALIZED UNDERSTANDING.
[2018-06-09 09:00] LABS: HEMATOCRIT 32.4 % (36-48); HEMOGLOBIN 9.8 g/dL (12.0-16.0); MEAN CORPUSCULAR HEMOGLOBIN 24 pg (27-31); MEAN CORPUSCULAR HGB CONC 30 g/dL (33-37); MEAN CORPUSCULAR VOLUME 78.5 fL (80-94); PLATELET COUNT (AUTO) 304 K/uL (140-450); RED BLOOD CELL COUNT(AUTO) 4.13 MIL/uL (4.20-5.40); RED CELL DISTRIBUTION WIDTH 20.4 % (11.6-13.7); WHITE BLOOD COUNT (AUTO) 21.8 K/uL (4.8-10.8)
[2018-06-09] MEDS ORDERED: FUROSEMIDE 20 MG/2 ML VIAL IVP SCH (09:00)
--- NOTE | 2018-06-09 09:00 | NUR ---
CALLED [employer], LEFT VOICEMAIL TO NORMAL, MOTOR VEHICLE FIELD REPRESENTATIVE ABOUT DR. CHAIREZ'S ORDER FOR TRANSFER TO [facility] FOR HIGHER LEVEL OF CARE. WILL FOLLOW UP. INFORMED PATIENT'S .
[2018-06-09] MEDS: DEXT 5% /NACL 0.9% 1,000 ML IV SCH (09:05)
[2018-06-09 09:19] LABS: ALBUMIN 1.7 g/dL (3.4-5.0); ANION GAP 13.5 (8-16); CARBON DIOXIDE 24.5 mmol/L (21-32); CREATININE 3.8 mg/dL (0.6-1.3); TOTAL BILIRUBIN 1.2 mg/dL (0.0-1.0)
--- NOTE | 2018-06-09 09:45 | NUR ---
PATIENT'S BEING LOUD AND WISHING TO SPEAK TO PERSONAL BANKING OFFICER OR MEDICAL DELIVERY TECHNICIAN, INFORMED HIM THAT THEY WERE CALLED, BUT THEY WERE IN BED HUDDLE SO RN WILL FOLLOW UP. HE VERBALIZED UNDERSTANDING AND TEN MINUTES LATER, INQUIRED TO WHERE THEIR OFFICE WAS SO HE COULD SPEAK TO THEM DIRECTLY. RN INFORMED HIM THAT THEY ARE AT A MEETING AND NOT BACK IN THEIR OFFICE YET.
--- NOTE | 2018-06-09 10:02 | NUR ---
PAGED DR. STEPHENS ABOUT PATIENT'S REFUSAL TO STAY AT [facility] AND DESIRE TO BE TRANSFERRED TO [facility]. WILL WAIT FOR HER TO CALL BACK.
[2018-06-09 10:09] LABS: LYMPHOCYTES % (MANUAL) 9 % (20-46); MONOCYTES % (MANUAL) 7 % (5-12)
--- NOTE | 2018-06-09 10:12 | NUR ---
METAL ROOFING MECHANIC AHMET SPEAKING TO PATIENT'S . WILL WAIT FOR HER EVALUATION.
--- NOTE | 2018-06-09 10:18 | NUR ---
RECEIVED AN ORDER TO TRANSFER TO [facility]. I PUT A CALL IN TO BLU AT [facility]. [facility]U FROM [facility] CALLED AND LEFT A MESSAGE THAT THEIR PACKAGING SALES CONSULTANT HAS APPROVED TRANSFER TO HIGHER LEVEL OF CARE IN A CONTRACTED HOSPICAL, [facility], [facility] OR [facility]. I CALLED [facility] AND SPOKE WITH NICOLASA AND FAXED THE FACE SHEET TO HER AT [phone]. RECEIVED ORDER FOR TRANSFER TO HIGH LEVEL OF CARE. I CALLED NICOLASA AT [facility] ADMISSIONS AND SHE SAID SHE ALREADY SPOKE WITH DR. STEPHENS AND THAT THE PATIENT WILL BE GOING TO ICU. I CALLED BLU FROM [facility], [phone] AND INFORMED HER THAT [facility] IS TAKING THE PATIENT, ADMIT TO ICU. SHE GAVE THE AUTH FOR [facility] [id number]. THE AUTH FOR [facility] IS [id number]. BLU SAID SHE DIDN'T NEED ANY FURTHER REVIEWS SENT TO HER. I CALLED NICOLASA AT [facility] AND GAVE HER THE AUTH FOR [facility]. SHE SAID SHE WOULD CALL ME BACK WITH THE ROOM NUMBER. I SPOKE WITH PEDRO LEWISCOMMUNITY SERVICE AIDE NURSE AND SHE WILL SET UP [facility] ON WILL CALL. NICOLASA FROM [facility] CALLED THE PATIENT WILL GO TO ICU ROOM 287A. CALL REPORT TO [phone]. PAT LEWIS INFORMED. SHE WILL CALL [facility]
--- NOTE | 2018-06-09 10:21 | NUR ---
DR WINKLER AND DR. CHAIREZ IN TO SPEAK TO PATIENT'S COURTNEY AND DAUGHTER JAE.
--- NOTE | 2018-06-09 10:35 | NUR ---
DR STEPHENS CALLED. TELEPHONED IN ORDER FOR STAT ABG, WILL CARRY OUT HER ORDER.
--- NOTE | 2018-06-09 10:38 | NUR ---
CALLED [facility] AND INFORMED THEM ABOUT STAT ABG ORDER. WILL WAIT FOR THE RESULT.
--- NOTE | 2018-06-09 10:57 | NUR ---
ARRANGED TRANSPORT WITH [facility] TO [facility] FOR HIGHER LEVEL OF CARE. PICK UPTIME WILL BE JERI SINCE THEY ARE BUSY WITH 911 CALL THE PICK UPTIME WILL BE WITH IN 90 MINUTES
[2018-06-09 11:20] VITALS: BP 107/63
--- NOTE | 2018-06-09 11:25 | NUR ---
PATIENT WAS BEING CLEANED, CHANGED, AND GIVEN WOUND CARE WHEN DR LOVE ORDERED PATIENT TO BE INTUBATED FOR PATIENT'S SAFETY. WILL CONTINUE WITH WOUND CARE AFTER INTUBATION.
[2018-06-09] MEDS ORDERED: SUCCINYLCHOLINE CHLORIDE 200 MG/10 ML VIAL IVP SCH (11:30)
--- NOTE | 2018-06-09 11:31 | NUR ---
CALLED PATIENT'S DAUGHTER JAE, INFORMED HER AND EXPLAINED TO HER ABOUT PATIENT'S INTUBATION AND WHY IT WAS NECESSARY FOR PATIENT BEFORE HER TRANSFER TO [facility]. JAE VERBALIZED UNDERSTANDING AND STATED "DO IT". WILL FOLLOW UP WITH HER WITH MORE NEWS. DR. LOVE AT BEDSIDE, PATIENT WILL BE INTUBATED.
[2018-06-09 11:45] VITALS: BP 117/82
--- NOTE | 2018-06-09 11:45 | NUR ---
PATIENT INTUBATED BY DR. LOVE. PATIENT GIVEN ETOMIDATE 40 MG INSTEAD OF 50 MG ORDERED ON EMAR, PER DR. LOVE'S ORDER DURING INTUBATION. ORDERED MEDICATIONS GIVEN. PATIENT TOLERATED IT. PATIENT INTUBATED WITH 7.5 ET TUBE AT THE 24TH TEETH/GUM. PATIENT'S VENT SETTINGS: AC, RR 16, TV 500, PEEP 5, FIO2 28%. O2 SATURATION 100%.
--- NOTE | 2018-06-09 11:45 | NUR ---
PT INTUBATED WITH A 7.5 ETT SECURED @24 TEETH/GUMS. ETT PLACEMENT CONFIRMED WITH CAPNOGRAPHY AND BILATERAL BREATH SOUNDS. STAT CXR ORDERED. PT TO BE PLACED ON VENT WITH VENT SETTINGS OF AC 16, VT 500, PEEP 5 AND KEEP SPO2 >=92% SETTINGS REQUESTED BY PHYSICIAN. NURSE MADE AWARE. ETT SECURED WITH ANCHOR FAST DEVICE. THERE IS NO BITING OR KINKING OF ETT. WILL CONTINUE TO MONITOR.
[2018-06-09] MEDS: ETOMIDATE 20 MG/10 ML VIAL IVP SCH ×3 (11:55→12:04)
--- NOTE | 2018-06-09 11:56 | NUR ---
TABULATING CLERK note (discharge summary report) 1155. DISCHARGE SUMMARY REPORT Pt was provided with bedside swallow evaluation on 06/07/2018 with recommendations for honey-thick clear liquids only, only to be given when pt fully awake/alert/not SOB/SpO2 >90%, strict aspiration precautions, dysphagia therapy. Pt was provided with dysphagia therapy on 06/08/2018, with recommendations for NPO, consider alternative method(s) of nutrition/hydration/medication, oral cares, dysphagia therapy. On 06/09/2018, TABULATING CLERK came to provide dysphagia therapy; however, pt NPO due to pneumoperitoneum with likely perforated viscus and being prepared to be transferred to [facility] at pt's family's request. RN (Oleg) reported pt to be transferred by ambulance at 1400 today. Recommend: 1) strict NPO (oral cares only) until cleared for PO by medical team, as appropriate 2) consider alternative method(s) of nutrition/hydration/medication vs comfort measures, as appropriate 3) discharge pt from TABULATING CLERK intervention at this time. Physician may reorder (if pt not discharged to another hospital) when pt's status improves/warrants, as appropriate. G-codes: [id number] [id number] [id number] [facility] NOMS level 1. PVE
--- NOTE | 2018-06-09 11:57 | NUR ---
DR CAMPO CALLED. UPDATED HIM ON PATIENT'S STATUS AND PENDING TRANSFER TO [facility].
--- NOTE | 2018-06-09 11:59 | NUR ---
XRAY IN TO TAKE XRAY. WILL WAIT FOR THE RESULT.
--- NOTE | 2018-06-09 12:15 | NUR ---
RIGHT LOWER EXTREMITY WOUND PHOTOGRAPH TAKEN. HYDRAGUARD APPLIED TO LEFT LOWER LEG AND HEEL. RIGHT LOWER EXTREMITY WOUND CLEANED WITH WOUND CLEANSER, PAT DRY, THERAHONEY APPLIED, THEN DRESSING, THEN WRAPPED WITH KERLIX.
--- NOTE | 2018-06-09 12:30 | NUR ---
GAVE REPORT TO [facility] STAFF WHO IS HERE TO TAKE PATIENT.
--- NOTE | 2018-06-09 12:35 | NUR ---
CALLED [facility] AT [phone], ICU, GAVE REPORT TO AMY LEWIS, SHE WANTED RN TO INFORM [facility] TO PASS BY ER TO ADMIT PATIENT. PATIENT NEEDS TO BE ADMITTED BEFORE SHE COULD BE TAKEN TO HER ROOM 287A. RN VERBALIZED UNDERSTANDING.
--- NOTE | 2018-06-09 12:40 | NUR ---
PATIENT DISCHARGE INSTRUCTION AND EDUCATION COULD NOT BE GIVEN. PATIENT CANNOT RETURN [facility], FAMILY IS NOT AT BEDSIDE. THEY STATED THAT THEY WILL BE IN LATER OR MEET HER OVER AT [facility] WHEN SHE GETS TRANSFERRED.
--- NOTE | 2018-06-09 12:45 | NUR ---
PATIENT TAKEN OFF FLOOR VIA GURNEY BY [facility] STAFF. PATIENT TRANSFERRING TO [facility]. PATIENT TOOK ALL HER BELONGINGS WITH HER.
[2018-06-09] MEDS ORDERED: THERAHONEY GEL 42.5 GM TP SCH (13:00)
--- NOTE | 2018-06-09 13:05 | NUR ---
PATIENT'S DAUGHTER, JAE, WAS CALLED AT [phone] TO INFORM HER THAT PATIENT ON HER WAY AND POSSIBLY ALREADY AT [facility]. Addendum: 06/09/18 at 1642 by Oleg Lomeli RN JAE VERBALIZED UNDERSTANDING.
== END 2018-06-09 12:45 | disposition short-term general hospital (02) | DRG 720 ==
LOC: MED 14:06 → MTU 18:48
PROVIDERS: ADMIT Hospitalist; ATTEND Hospitalist
PROC: 02HV33Z Insertion of Infusion Device into Superior Vena Cava, Percutaneous Approach (ICD-10-PCS; principal; 2018-06-06)
PROC: B548ZZA Ultrasonography of Superior Vena Cava, Guidance (ICD-10-PCS; 2018-06-06)
DX: A41.9 Sepsis, unspecified organism (principal); J96.01 Acute respiratory failure with hypoxia; J69.0 Pneumonitis due to inhalation of food and vomit; G93.40 Encephalopathy, unspecified; K66.8 Other specified disorders of peritoneum; S72.141A Displaced intertrochanteric fracture of right femur, initial encounter for closed fracture; N17.9 Acute kidney failure, unspecified; E11.22 Type 2 diabetes mellitus with diabetic chronic kidney disease; I48.91 Unspecified atrial fibrillation; J45.909 Unspecified asthma, uncomplicated; E11.51 Type 2 diabetes mellitus with diabetic peripheral angiopathy without gangrene; E83.39 Other disorders of phosphorus metabolism; I95.9 Hypotension, unspecified; I12.9 Hypertensive chronic kidney disease with stage 1 through stage 4 chronic kidney disease, or unspecified chronic kidney disease; N39.0 Urinary tract infection, site not specified; E11.69 Type 2 diabetes mellitus with other specified complication; M86.8X6 Other osteomyelitis, lower leg; D64.9 Anemia, unspecified; I83.018 Varicose veins of right lower extremity with ulcer other part of lower leg; E11.622 Type 2 diabetes mellitus with other skin ulcer; X58.XXXA Exposure to other specified factors, initial encounter; E78.5 Hyperlipidemia, unspecified; N18.9 Chronic kidney disease, unspecified; L97.919 Non-pressure chronic ulcer of unspecified part of right lower leg with unspecified severity; E66.9 Obesity, unspecified; Z68.34 Body mass index [BMI] 34.0-34.9, adult; Z87.891 Personal history of nicotine dependence; Z86.73 Personal history of transient ischemic attack (TIA), and cerebral infarction without residual deficits; Z86.718 Personal history of other venous thrombosis and embolism; Z79.899 Other long term (current) drug therapy; Z87.01 Personal history of pneumonia (recurrent); Y93.89 Activity, other specified; Y92.89 Other specified places as the place of occurrence of the external cause; Y99.8 Other external cause status
CPT/HCPCS: 31500; 36415; 36556; 51702; 70450; 71045; 71250; 73502; 73562; 73700; 76770; 80053; 80202; 81001; 82140; 82150; 82550; 82553; 82803; 82948; 83605; 83690; 83735; 83874; 83880; 84100; 84484; 85025; 85379; 85384; 85610; 85730; 86886; 86900; 86901; 87040; 87070; 87081; 87086; 87186; 92526; 92610; 93005; 93970; 94002; 94640; 96365; 96367; 96372; 96375; 97799; 99285; J0330; J1170; J1642; J1644; J1650; J1815; J2060; J2543; J2930; J3370; J3490; J7030; J7042; J7060; J7613; J7620; J7644; Q0092

== ENCOUNTER 2018-07-03 21:23 | Inpatient (IN) | payer OTHER ==
[~2018-07-03] VITALS: Ht 165.1 cm; Wt 77.6 kg
--- NOTE | 2018-07-03 20:00 | NUR ---
HELPED NURSE YURIDIA TRANSPORT PATIENT TO CT ON A NONREBREATHER. TRANSPORTED THERE AND BACK WITH NO INCIDENT. PLACED PATIENT BACK ON BIPAP UPON RETURNING. VITALS REMAINED STABLE.
[2018-07-03 21:23] VITALS: BP 158/104
[~2018-07-03 21:23] MED LIST changes: -ATEN50TA2 PO
--- NOTE | 2018-07-03 21:23 | NUR ---
PT [facility]. TAKEN TO BED 11
--- NOTE | 2018-07-03 21:23 | NUR ---
BIBA FROM HOME WITH C/O RESP DISTRESS, SHE WAS GIVEN BREATHING TREATMENT ENROUTE. PATIENT WAS DIAPHORETIC, SAO2 100% ON BREATHING TREATMENT. PT HAS EVIN ON STOMACH. PT HAS WOUND ON RT LEG WRAPPED WITH ROMELIA BANDAGE. PT HAS DOUBLE LUMEN PICC LINE ON RT UPPER ARM. PT HAS HX OF CVA/HTN/DM PT DENIES N/V/D; AAOX4, PT DENIES ANY FEVER, CP, SOB, OR COUGH AT THIS TIME; PATIENT STATES PAIN OF 0/10 AT THIS TIME; PATIENT POSITIONED FOR COMFORT; HOB ELEVATED; BEDRAILS UP X2;
--- NOTE | 2018-07-03 21:47 | NUR ---
2123. PATIENT BROUGHT IN BY PARAMEDICS ON A BREATHING TREATMENT. PATIENT HAS SOB AND CONTINUED BREATHING TREATMENT. POST HYHN TREATMENT PLACED PT ON 100% NON REBREATHER. BREATH SOUNDS WERE RALES BILATERALY.
[2018-07-03] MEDS ORDERED: LEVOFLOXACIN 750 MG/D5W PREMIX 150 ML IV ONE (22:05)
[2018-07-03] MEDS ORDERED: CEFEPIME 1,000 MG in DEXTROSE 5% 50 ML IV ONE (22:05)
[2018-07-03] MEDS ORDERED: VANCOMYCIN 1GM/DEXT 5% PREMIX 200 ML IV ONE (22:20)
[2018-07-03] MEDS ORDERED: methylPREDNISolone SS 125 MG/2 ML VIAL IVP ONE (22:20)
[2018-07-03] MEDS ORDERED: ALBUTEROL 0.083% 2.5 MG/3 ML NEBU INH ONE (22:20)
[2018-07-03] MEDS ORDERED: IPRATROPIUM 0.02% 0.5 MG/2.5 ML NEBU INH ONE (22:20)
[2018-07-03] MEDS ORDERED: VANCOMYCIN PER PHARMACY MC PRN (22:20)
[2018-07-03] MEDS ORDERED: DILTIAZEM 25 MG/5 ML VIAL IVP ONE (22:25)
[2018-07-03] MEDS ORDERED: DILTIAZEM 125 MG in DEXTROSE 5% 100 ML IV ONE (22:25)
--- NOTE | 2018-07-03 22:25 | NUR ---
REPORT GIVEN TO YURIDIA LEWIS
[2018-07-03] MEDS ORDERED: CEFEPIME 1,000 MG VIAL ONE (22:27)
[2018-07-03 22:36] LABS: BASOPHILS # (AUTO) 0.1 K/uL (0.00-0.22); EOSINOPHILS # (AUTO) 0.3 K/uL (0-0.4); EOSINOPHILS % (AUTO) 2.2 % (0.0-4.0); HEMATOCRIT 23.8 % (36-48); HEMOGLOBIN 7.3 g/dL (12.0-16.0); LYMPHOCYTES # (AUTO) 2.9 K/uL (2.5-16.5); LYMPHOCYTES % (AUTO) 24.6 % (20.5-51.1); MEAN CORPUSCULAR HEMOGLOBIN 23 pg (27-31); MEAN CORPUSCULAR HGB CONC 31 g/dL (33-37); MEAN CORPUSCULAR VOLUME 76.1 fL (80-94); MONOCYTES # (AUTO) 1.4 K/uL (0.8-1.0); MONOCYTES % (AUTO) 11.8 % (1.7-9.3); NEUTROPHILS # (AUTO) 7.2 K/uL (1.8-7.7); NEUTROPHILS % (AUTO) 60.4 % (42.2-75.2); PLATELET COUNT (AUTO) 496 K/uL (140-450); RED BLOOD CELL COUNT(AUTO) 3.13 MIL/uL (4.20-5.40); RED CELL DISTRIBUTION WIDTH 21.3 % (11.6-13.7); WHITE BLOOD COUNT (AUTO) 11.9 K/uL (4.8-10.8)
[2018-07-03 22:42] LABS: CREATININE 1.2 mg/dL (0.6-1.3)
[2018-07-03 22:48] LABS: ALBUMIN 2.1 g/dL (3.4-5.0); MAGNESIUM 1.8 mg/dL (1.8-2.4); TOTAL BILIRUBIN 0.5 mg/dL (0.0-1.0)
[2018-07-03] MEDS ORDERED: DILTIAZEM 125 MG/25 ML VIAL IV ONE (22:48)
--- NOTE | 2018-07-03 22:53 | NUR ---
2250 ATTEMPTED ABG BY [address] RTS[address] UNA[address] TO GET[address] BECERRIL WAS TOLD. WILL PUT PT ON BIPAP AND ATTEMPT LATER
--- NOTE | 2018-07-03 22:55 | NUR ---
SPOKE Osmany FREEMAN AT [facility] FOR ADMISSION.
--- NOTE | 2018-07-03 23:34 | NUR ---
PT TAKEN TO CT
[2018-07-04] VITALS (52 sets, daily range): BP systolic 126–160; BP diastolic 70–108
--- NOTE | 2018-07-04 00:10 | NUR ---
REPORT GIVEN TO JOSHUA RODRIGUEZ TO ASSUMED CARE.
[2018-07-04] MEDS ORDERED: DILTIAZEM 25 MG/5 ML VIAL IVP ONE (00:15)
[2018-07-04] MEDS ORDERED: AMIODARONE 150 MG in DEXTROSE 5% 100 ML IV ONE (00:20)
--- NOTE | 2018-07-04 00:20 | NUR ---
INCREASED CARDIZEM DRIP TO 15MG/HR PER PROTOCOL. BP 1049/107, HR 145
--- NOTE | 2018-07-04 00:30 | NUR ---
RECEIVED REPORT FROM JOHN. LEWIS AT ER BED 11. PATIENT ON BIPAP, IN ASLEEP, AROUSABLE TO VOICE BUT NO ANSWER FOR QUESTIONS, LETHARGIC NOTED. PATIENT HAS PICC DOUBLE LUMENS LINE TO RIGHT UPPER ARM ON CARDIZEM DRIP 15MG/HR. NO BLOOD RETURN FROM PICC LINES. OPEN WOUND TO RIGHT LOWER LEG AND HEEL AND SURGICAL INCISION WITH EVIN TO MID ABDOMEN. NO ACUTE DISTRESS NOTED AT THIS TIME. WILL CONTINUE TO MONITOR.
--- NOTE | 2018-07-04 00:56 | NUR ---
TELEX OPERATOR TITUS TAKING PATIENT
--- NOTE | 2018-07-04 01:00 | NUR ---
ADMINISTERED CARDIZEM 20MG IV PUSH. BP 147/102, HR 146 NOTED. PATIENT STILL IN SLEEP.
[2018-07-04] MEDS ORDERED: AMIODARONE 150 MG/3 ML VIAL IV ONE (01:11)
[2018-07-04] MEDS ORDERED: ONDANSETRON 4 MG/2 ML VIAL IVP PRN (01:15)
[2018-07-04] MEDS ORDERED: ALBUTEROL 0.083% 2.5 MG/3 ML NEBU INH PRN (01:15)
[2018-07-04] MEDS ORDERED: VANCOMYCIN 1,000 MG VIAL ONE (01:17)
--- NOTE | 2018-07-04 01:18 | NUR ---
REPORT GIVEN TO SELENA LEWIS
[2018-07-04] MEDS ORDERED: INSULIN LISPRO SLIDING SCALE 100 UNITS/ML VIAL SUBQ PRN (01:20)
[2018-07-04] MEDS ORDERED: DEXT 5% / NACL 0.9% 500 ML IV ONE (01:20)
--- NOTE | 2018-07-04 01:35 | NUR ---
PATIENT TRANSFERRED TO ICU BED 1 FROM ER VIA [facility] WITH TWO NURSES.
--- NOTE | 2018-07-04 01:36 | NUR ---
Pt transferred to ICU via BED WITH JOSHUA BEASLEY .
[2018-07-04] MEDS ORDERED: FUROSEMIDE 40 MG/4 ML VIAL IVP SCH ×2 (02:00→13:00)
--- NOTE | 2018-07-04 02:10 | NUR ---
SPOKE WITH DR. CONTRERAS FOR CONSULTATION FOR ACUTE RENAL FAILURE. GIVEN UPDATES TO DR. HE STATED GIVE AMIODARONE LOADING DOSE AND KEEP THE CARDIZEM DRIP.
--- NOTE | 2018-07-04 02:20 | NUR ---
DR. STEPHENS INFORMED OF THE CT ABD/PELVIS RESULT ALSO.
--- NOTE | 2018-07-04 02:20 | NUR ---
SPOKE WITH DR. STEPHENS TO CLARIFY LOVENOX INDICATION PER PHARMACY, DR. STEPHENS SAID "DVT". CALLED PHARMACIST TO INFORMED WHAT DR. STEPHENS STATED AND INFORMED PHARMACIST ALSO THAT PATIENT HAD OF DVT.
[2018-07-04] MEDS ORDERED: DEXT 5% /NACL 0.9% 1,000 ML IV ONE (02:45)
[2018-07-04] MEDS ORDERED: VANCOMYCIN 1,000 MG in DEXTROSE 5% 250 ML IV SCH (03:30)
[2018-07-04] MEDS ORDERED: PIPERACILLIN/TAZOBACTAM 2.25 GM VIAL IV ONE (04:58)
[2018-07-04] MEDS ORDERED: PIPERACILLIN/TAZOBACTAM 2.25 GM in DEXTROSE 5% 50 ML IV SCH (05:00)
[2018-07-04] MEDS: MORPHINE SULFATE 2 MG/ML SYR IVP PRN ×2 (05:51→10:13)
[2018-07-04] MEDS ORDERED: DILTIAZEM HCL 60 MG PO SCH (06:00)
--- NOTE | 2018-07-04 06:00 | NUR ---
INSERTED MOLINA CATH ORDERED. PATIENT TOLERATED WELL. ADMINISTERED PRN PAIN MEDICATION ORDERED DUE TO PATIENT COMPLAINT OF PAIN AT RIGHT LOWER LEG, 03/12. WILL CONTINUE TO MONITOR.
--- NOTE | 2018-07-04 06:15 | NUR ---
DR. STEPHENS AT THE BED SIDE TO CHECK THE PATIENT. WILL CONTINUE TO MONITOR.
[2018-07-04] MEDS: ALBUTEROL 0.083% 2.5 MG/3 ML NEBU INH SCH ×3 (06:38→13:16)
[2018-07-04] MEDS: IPRATROPIUM 0.02% 0.5 MG/2.5 ML NEBU INH SCH ×3 (06:38→13:16)
--- NOTE | 2018-07-04 06:45 | NUR ---
SPOKE IWTH PATIENT'S MOTHER JAE GUPTA TO GET CONSENT FOR BLOOD TRANSFUSION, MOTHER STATED TO CALL PATIENT'S RJ. CALLED RJ AT [phone] TO GET CONSENT FOR BLOOD TRANSFUSION, REFUSED TO GIVE CONSENT, WANTED PATIENT TO BE TRANSFERRED TO [facility]. INFORMED THAT WE WILL NOTIFY DR. STEPHENS AND CASE MANAGEMENT.
--- NOTE | 2018-07-04 06:53 | NUR ---
RC'D PT ON BIPAP WITH CHARTED SETTINGS.PT HAS LARGE MASK WITH PROTECTIVE GEL UNDER. SKIN IN INTACT. PT'S HR IS ELEVATED 139. HHN TX NOT GIVEN AT THIS TIME. RN IS AWARE. CLEAR BILATERAL BREATH SOUNDS WITH SPO2 OS 100%. BIPAP IS CONNECTED TO RED OUTLET. ALARMS AUDIBLE. NO DISTRESS NOTED. WILL CONTINUE TO MONITOR.
--- NOTE | 2018-07-04 06:54 | NUR ---
DR. LEWIS INFORMED ABOUT THE CONSULT, UPDATES GIVEN ON PATIENT'S CONDITION WITH ORDER TO GIVE DIGOXIN 0.5 MG IVP X1. Addendum: 07/04/18 at 0655 by Sima Manuel RN UPDATES GIVEN ON PATIENT'S CONDITION, STILL HR ON 130-140, ORDER TO GIVE DIGOXIN 0.5 MG IVP X1
[2018-07-04] MEDS ORDERED: DIGOXIN 0.25 MG/ML AMP IV SCH (06:55)
[2018-07-04] MEDS ORDERED: DIGOXIN 0.25 MG/ML AMP IV ONE (07:10)
--- NOTE | 2018-07-04 07:10 | NUR ---
REPORT GIVEN TO MORNING SHIFT RN FOR CONTINUITY OF CARE.
--- NOTE | 2018-07-04 07:30 | NUR ---
RECEIVED REPORT FROM BONDING AND COMPOSITE FABRICATOR RN. PT RESTING IN BED A/O X2, VERBAL. ABLE TO MAKE NEEDS KNOWN. ST ON MONITOR. ON BIPAP. LUNGS CLEAR ON AUSCULTATION. PICC LINE DOUBLE LUMEN NOTED ON MICHELE, INTACT. D5%NS RUNNING AT 40 ML/HR. DILTIAZEM RUNNING AT 15 MG/HR. S/P SURGICAL SUTURES AND STAPLE NOTED ON ANTERIOR ABDOMEN. NO BLEEDING, NO DISCHARGE NOTED AT THE SITE. ABDOMEN SOFT, ROUND AND NON-TENDER. ACTIVE BOWEL SOUND. ON MOLINA CATH DRAINING CLEAR YELLOW URINE VIA GRAVITY. OPEN SKIN NOTED ON RIGHT LOWER LEG AND HEEL. COVERED WITH DRESSING. CONTINUE ON BEDSIDE MONITOR. HOB ELEVATED. BED IN LOW POSITION LOCKED. WILL CONTINUE TO MONITOR.
[2018-07-04] MEDS ORDERED: DILTIAZEM 125 MG in DEXTROSE 5% 100 ML IV SCH (07:45)
--- NOTE | 2018-07-04 08:18 | NUR ---
CALLED DR. STEPHENS. ASKED IF SHE WANTS PT TO KEEP ON NPO STATUS ONLY. DOCTOR SAID DO NPO EXCEPT MEDS. AND ORDERED. TO DISCONTINUE PO CARDIZEM. WILL CARRYOUT ORDER.
--- NOTE | 2018-07-04 08:33 | NUR ---
PATIENT HAS BEEN SCREENED AND CATEGORIZED HIGH NUTRITION RISK. PATIENT WILL BE SEEN WITHIN 1-2 DAYS OF ADMISSION. 07/04/18 07/05/[address]
--- NOTE | 2018-07-04 08:45 | NUR ---
ADMINISTERED MEDICATION ORDERED. TOLERATING WELL.
[2018-07-04] MEDS ORDERED: ENOXAPARIN 40 MG/0.4 ML SYR SUBQ SCH (09:00)
[2018-07-04] MEDS ORDERED: CITALOPRAM 20 MG TAB PO SCH (09:00)
[2018-07-04] MEDS ORDERED: METOPROLOL 50 MG TAB PO SCH (09:00)
[2018-07-04] MEDS ORDERED: ENOXAPARIN 80 MG/0.8 ML SYR SUBQ SCH (09:00)
[2018-07-04] MEDS ORDERED: METOPROLOL TARTRATE 150 MG PO SCH (09:00)
[2018-07-04] MEDS ORDERED: DILTIAZEM 60 MG TAB PO SCH (09:00)
[2018-07-04] MEDS ORDERED: PANTOPRAZOLE 40 MG INJ VIAL IVP SCH (09:00)
--- NOTE | 2018-07-04 09:01 | NUR ---
CM NOTE INITIAL REVIEW, ADMIT ORDER, ER DR'S NOTE, H&P, LAB RESULTS, LIST OF MEDICATIONS, ORDER TO TRANSFER TO [facility] FAXED TO [facility] [phone] # [phone] [facility] EXT [phone].
--- NOTE | 2018-07-04 09:04 | NUR ---
PT OFF BIPAP PER JOSHUA SANTOS'S REQUEST TO GIVE PO MEDICINE AND FOR VQ TECH TO GIVE PT AEROSOL MED VIA HIS MACHINE. NO DISTRESS NOTED. MONITORING PT. HR 90 SPO2 100%. DAUGHTER AT BEDSIDE.
--- NOTE | 2018-07-04 09:05 | NUR ---
VQ SCAN TECH AT BED SIDE.
[2018-07-04] MEDS: ACETAMINOPHEN 325 MG TAB PO PRN ×2 (09:12→14:10)
--- NOTE | 2018-07-04 09:16 | NUR ---
PT ON 2 L NC. SPO2 97%. NO SOB OR DISTRESS. JOSHUA SANTOS AND AALIYAH SPRING IN ROOM. WILL CONTINUE TO MONITOR.
--- NOTE | 2018-07-04 09:17 | NUR ---
DR LEWIS CALLED, WITH ORDERS TO TITRATE CARDIZEM DRIP TO 10MG/H. ORDERS CARRIED OUT. PRIMARY RN MADE AWARE.
--- NOTE | 2018-07-04 09:17 | NUR ---
RECEIVED CALL FROM DR. LEWIS. ORDERED TO DECREASE THE RATE OF CARDIZEM TO 10MG/HR. WILL CARRY OUT THE ORDER.
--- NOTE | 2018-07-04 09:33 | NUR ---
RECEIVED A CALL FROM BLOOD BANK THAT BLOOD IS READY. INFORMED HER THAT WE DO NOT HAVE THE CONSENT YET, WAITING FOR PATIENT'S DECISION.
[2018-07-04 10:43] LABS: APPEARANCE,URINE CLEAR (CLEAR); BILIRUBIN,URINE NEGATIVE (NEGATIVE); BLOOD, URINE NEGATIVE (NEGATIVE); LEUKOCYTE ESTERASE ,URINE NEGATIVE (NEGATIVE); NITRITE, URINE NEGATIVE (NEGATIVE); PH,URINE 6.5 (5.0-9.0); UGLUCOSE NEGATIVE (NEGATIVE)
[2018-07-04 10:52] LABS: COLOR,URINE STRAW (YELLOW); RBC,URINE NONE SEEN /HPF (0-5); WBC,URINE NONE SEEN /HPF (0-5)
--- NOTE | 2018-07-04 10:57 | NUR ---
S.T. BEDSIDE SWALLOW EVAL COMPLETED. See report for details. Pt presents with moderate oropharyngeal dysphagia c/b prolonged mastication of soft solids, delayed pharyngeal swallow initiation and consistent coughing after swallows of thin liquid. Pt is at risk for aspiration. Recommend: 1) Pureed diet, nectar thick liquids. Controlled straw sips ok. 2) Crush P.O. meds and mix w/ puree. 3) Aspiration precautions and oral care after meals. No further tx is indicated at this time as this is pt's baseline diet texture. Time 2325-3776 G8996 CK G8997 CK G8998 CK NOMS LEVEL 4
--- NOTE | 2018-07-04 11:06 | NUR ---
PT IS STILL ON 2 L NC. NO SOB OR DISTRESS NOTED. SPO2 IS 100%. BIPAP STANDBY IN ROOM. AMBU BAG AT BEDSIDE. WILL CONTINUE TO MONITOR.
--- NOTE | 2018-07-04 11:09 | NUR ---
1770 SPOKE WITH NICOLASA ALMEIDAHEALTH MANAGEMENT CONSULTANT AT [facility] AND SHE STATED THEY DO HAVE A BED FOR PT AND REQUESTED THAT FACESHEET AND REASON FOR HIGHER LEVEL OF CARE AND THE ORE CHARGER THAT WILL SEE THE PT AT [facility]. CONTACTED DR STEPHENS AND OBTAINED INFORMATION AND EVERYTHING FAXED TO [facility] [phone].
--- NOTE | 2018-07-04 11:21 | NUR ---
CALLED [facility] [phone]. FOLLOW UP REGARDING BLOOD TRANSFUSION. HE SAID "ONLY [facility] CAN DO BLOOD TRANSFUSION". ALSO RECEIVED TELEPHONE CONSENT TO RELEASE INFORMATION TO [facility] AND TRANSFERRING PT TO [facility].
[2018-07-04 12:09] LABS: BASOPHILS % (AUTO) 0.5 % (0.0-2.0); HEMATOCRIT 25.3 % (36-48); HEMOGLOBIN 7.7 g/dL (12.0-16.0); LYMPHOCYTES # (AUTO) 1.4 K/uL (2.5-16.5); MEAN CORPUSCULAR HEMOGLOBIN 24 pg (27-31); MEAN CORPUSCULAR HGB CONC 30 g/dL (33-37); MEAN CORPUSCULAR VOLUME 77.6 fL (80-94); MONOCYTES # (AUTO) 0.1 K/uL (0.8-1.0); MONOCYTES % (AUTO) 1.4 % (1.7-9.3); NEUTROPHILS # (AUTO) 7.3 K/uL (1.8-7.7); NEUTROPHILS % (AUTO) 82.1 % (42.2-75.2); PLATELET COUNT (AUTO) 521 K/uL (140-450); RED BLOOD CELL COUNT(AUTO) 3.25 MIL/uL (4.20-5.40); RED CELL DISTRIBUTION WIDTH 21.3 % (11.6-13.7); WHITE BLOOD COUNT (AUTO) 8.9 K/uL (4.8-10.8)
--- NOTE | 2018-07-04 12:14 | NUR ---
CM NOTE PER [facility] CM COORDINATOR DANIELLA # [phone] EXT [phone], THEY ARE STILL WAITING FOR THEIR PROGRAM [facility]'S DECISION WHETHER THEY WILL APPROVE THE TRANSFER TO [place] OR NOT.
--- NOTE | 2018-07-04 12:21 | NUR ---
SPONGING DONE. KEPT PT CLEAN AND DRKhushboo REPOSITIONED. ADMINISTERED MEDICINE ORDERED. WILL CONTINUE TO MONITOR.
[2018-07-04 12:38] LABS: ALBUMIN 2.3 g/dL (3.4-5.0); ANION GAP 13.6 (8-16); CREATININE 1.4 mg/dL (0.6-1.3); POTASSIUM 4.6 mmol/L (3.5-5.1); TOTAL BILIRUBIN 0.4 mg/dL (0.0-1.0)
--- NOTE | 2018-07-04 12:54 | NUR ---
DR GOLD IS AWARE OF PT CONDITION AND ALSO AWARE THAT PT IS OFF BIPAP OF NOW SHE IS FELLING A LOT BETTER AND HAVE NO DISTRESS. WILL CONTINUE TO MONITOR. Addendum: 07/04/18 at 1258 by Halima Ortiz RT DR MIGUEL
[2018-07-04] MEDS ORDERED: PIPER/TAZO 2.25GM/D5W PREMIX 50 ML IV SCH (13:00)
[2018-07-04] MEDS ORDERED: PIPER/TAZO 3.375GM/D5W PREMIX 50 ML IV SCH (13:00)
--- NOTE | 2018-07-04 13:02 | NUR ---
CM NOTE PER [facility] HURT PH# [phone] EXT [phone], FOR [facility] AUTH# [id number], FOR [facility] AUTH# [id number]
--- NOTE | 2018-07-04 13:30 | NUR ---
SPOKE TO EVER FROM [facility] TO SET UP TRANSPORT.
--- NOTE | 2018-07-04 13:35 | NUR ---
DR. Allen LEWIS IN, SEEN AND EXAMINED PATIENT. MADE AWARE OF PATIENT WILL BE TRANSFERRED TO [facility]
--- NOTE | 2018-07-04 13:37 | NUR ---
CALLED [facility]. CALLED RECEIVED BY JONI LEWIS. SAID HE WILL RECEIVE REPORT FOR MONICA LEWIS AND GIVE HER REPORT (MONICA LEWIS IS THE RECEIVING NURSE IN [facility]). REPORT GIVEN TO JOSHUA QUINONES.
--- NOTE | 2018-07-04 13:40 | NUR ---
PT IS GOING [place] [facility] BED 285.
--- NOTE | 2018-07-04 13:42 | NUR ---
SPOKE TO JUAN M FROM [facility], COAT CHECKER TIME AT 1417
[2018-07-04] MEDS ORDERED: VANCOMYCIN PER PHARMACY MC PRN (13:55)
--- NOTE | 2018-07-04 13:55 | NUR ---
RJ BASILIO MADE AWARE OF TRANSFER TO [facility] [place] [facility].
[2018-07-04] MEDS ORDERED: VANCOMYCIN 1GM/DEXT 5% PREMIX 200 ML IV SCH (14:15)
[2018-07-04] MEDS ORDERED: ALBUMIN HUMAN 25% 100 ML IV SCH ×2 (14:16→14:25)
[2018-07-04] MEDS ORDERED: ALBUMIN HUMAN 25% 100 ML IV ONE (14:20)
--- NOTE | 2018-07-04 14:43 | NUR ---
PT SLEEPING AT THIS TIME. NO ACUTE RESPIRATORY DISTRESS NOTED. VS WNL. NO CHANGE IN LOC. MEDICATED ORDERED. WILL CONTINUE TO MONITOR.
[2018-07-04] MEDS ORDERED: PIPE1SOL IV (14:57)
[2018-07-04] MEDS ORDERED: VANC1PLA15 IV (14:58)
--- NOTE | 2018-07-04 15:44 | NUR ---
07/04/18 RD INITIAL ASSESSMENT COMPLETED PLEASE REFER TO NUTRITION ASSESSMENT UNDER CARE ACTIVITY FOR ESTIMATED NUTRITIONAL NEEDS. 1. CONTINUE NPO DIET MEDICALLY ADVISED 2. WHEN MEDICALLY CLEARED RECOMMEND RENAL DIET. 3. IF PT HAS LOW APPETITE RECOMMEND NEPRO WITH CARB STEADY BID. 4. RD TO FOLLOW-UP 1-2 DAYS, HIGH RISK TREY JESUS, RD
--- NOTE | 2018-07-04 16:10 | NUR ---
PT PULLED OUT PICC LINE. ESTABLISHED NEW PERIPHERAL LINE 22G ON JESSICA.
--- NOTE | 2018-07-04 16:42 | NUR ---
PT TRANSFERRED [place] [facility] [place] [facility] PERSONNEL. PT ON STABLE CONDITION.
--- NOTE | 2018-07-04 16:54 | NUR ---
CALLED [facility] SPOKE WITH JOSHUA ANDERSON. MADE AWARE ABOUT PT PULLED OUT PICC LINE AND REESTABLISHED NEW PERIPHERAL LINE, CARDIZEM DRIP ON HOLD. MADE AWARE ABOUT PT IS ON THE WAY.
--- NOTE | 2018-07-04 17:47 | NUR ---
CALLED THE # [phone] SPOKE WITH PATIENT'S RJ. MADE AWARE THAT PT TRANSFERRED TO [facility]. SAID OK.
--- NOTE | 2018-07-04 17:55 | NUR ---
JAE GUPTA THE DAUGHTER MADE AWARE ABOUT TRANSFERRING PT TO [facility].
--- NOTE | 2018-07-05 09:49 | NUR ---
WOUND CARE CONSULT NOT DONE, PT. TRANSFERRED TO [facility].
--- NOTE | 2018-07-06 13:34 | NUR ---
CM NOTE DC SUMMARY FAXED TO [facility] [phone] # [phone] [facility] EXT [phone].
== END 2018-07-04 21:43 | disposition short-term general hospital (02) | DRG 720 ==
LOC: MED 21:23 → MIC 07-04 01:23
PROVIDERS: ADMIT Hospitalist; ATTEND Hospitalist
PROC: 5A09357 Assistance with Respiratory Ventilation, Less than 24 Consecutive Hours, Continuous Positive Airway Pressure (ICD-10-PCS; principal; 2018-07-03)
DX: A41.9 Sepsis, unspecified organism (principal); J96.20 Acute and chronic respiratory failure, unspecified whether with hypoxia or hypercapnia; J69.0 Pneumonitis due to inhalation of food and vomit; I50.23 Acute on chronic systolic (congestive) heart failure; E43 Unspecified severe protein-calorie malnutrition; N17.9 Acute kidney failure, unspecified; I42.9 Cardiomyopathy, unspecified; I48.91 Unspecified atrial fibrillation; E11.9 Type 2 diabetes mellitus without complications; D64.9 Anemia, unspecified; R53.2 Functional quadriplegia; I13.0 Hypertensive heart and chronic kidney disease with heart failure and stage 1 through stage 4 chronic kidney disease, or unspecified chronic kidney disease; I69.359 Hemiplegia and hemiparesis following cerebral infarction affecting unspecified side; Z86.718 Personal history of other venous thrombosis and embolism; Z87.11 Personal history of peptic ulcer disease; N18.9 Chronic kidney disease, unspecified; L97.809 Non-pressure chronic ulcer of other part of unspecified lower leg with unspecified severity; Z79.899 Other long term (current) drug therapy; K76.89 Other specified diseases of liver; K63.89 Other specified diseases of intestine; J44.9 Chronic obstructive pulmonary disease, unspecified
CPT/HCPCS: 36415; 36600; 71045; 71250; 78582; 80053; 81001; 82803; 83605; 83690; 83735; 83880; 84484; 85025; 86886; 86900; 86901; 86920; 87040; 87081; 87086; 92610; 94640; 94660; 96365; 96367; 96368; 96375; 99291; C9113; J0282; J0692; J1160; J1815; J1940; J1956; J2270; J2543; J2930; J3370; J3490; J7060; J7613; J7644; P9046; Q0092

== ENCOUNTER 2019-05-11 02:30 | Inpatient (IN) | payer OTHER ==
[2019-05-11] VITALS (76 sets, daily range): BP systolic 86–161; BP diastolic 36–92
[~2019-05-11] VITALS: Ht 162.6 cm; Wt 83.0 kg
[~2019-05-11 02:30] MED LIST changes: -CLON0.1T42 PO; +PIPE1SOL IV; +VANC1PLA15 IV
[2019-05-11] MEDS ORDERED: ETOMIDATE 20 MG/10 ML VIAL IVP ONE (02:35)
[2019-05-11] MEDS ORDERED: PROPOFOL 1000 MG/100 ML PREMIX 100 ML IV ONE ×2 (02:35→02:49)
[2019-05-11] MEDS ORDERED: SUCCINYLCHOLINE CHLORIDE 200 MG/10 ML VIAL IVP ONE (02:35)
[2019-05-11] MEDS ORDERED: ONDANSETRON 4 MG/2 ML VIAL IVP ONE (03:05)
[2019-05-11] MEDS ORDERED: SODIUM BICARBONATE 8.4% 50 MEQ/50 ML VIAL ONE (03:13)
[2019-05-11 03:54] LABS: BASOPHILS % (AUTO) 0.1 % (0.0-2.0); HEMATOCRIT 36.3 % (36-48); MEAN CORPUSCULAR HEMOGLOBIN 26 pg (27-31); MONOCYTES # (AUTO) 0.7 K/uL (0.8-1.0)
[2019-05-11] MEDS: SODIUM BICARBONATE 8.4% 50 MEQ in NACL 0.9% 1,000 ML IV SCH ×2 (03:55→06:15)
[2019-05-11 04:01] LABS: EOSINOPHILS % (AUTO) 0.2 % (0.0-4.0); HEMOGLOBIN 10.9 g/dL (12.0-16.0); LYMPHOCYTES # (AUTO) 0.6 K/uL (2.5-16.5); MEAN CORPUSCULAR HGB CONC 30 g/dL (33-37); MEAN CORPUSCULAR VOLUME 85.3 fL (80-94); NEUTROPHILS # (AUTO) 10.9 K/uL (1.8-7.7); NEUTROPHILS % (AUTO) 88.5 % (42.2-75.2); PLATELET COUNT (AUTO) 196 K/uL (140-450); RED BLOOD CELL COUNT(AUTO) 4.25 MIL/uL (4.20-5.40); WHITE BLOOD COUNT (AUTO) 12.3 K/uL (4.8-10.8)
[2019-05-11 04:08] LABS: RED CELL DISTRIBUTION WIDTH 20.5 % (11.6-13.7)
[2019-05-11 04:09] LABS: ANION GAP 17.8 (8-16); CARBON DIOXIDE 18.6 mmol/L (21-32); CREATININE 1.9 mg/dL (0.6-1.3); LYMPHOCYTES % (AUTO) 5.2 % (20.5-51.1); POTASSIUM 4.4 mmol/L (3.5-5.1)
[2019-05-11 04:14] LABS: TOTAL BILIRUBIN 0.8 mg/dL (0.0-1.0)
[2019-05-11] MEDS ORDERED: NACL 0.9% 1,000 ML IV ONE ×3 (04:15→06:40)
[2019-05-11] MEDS ORDERED: PIPERACILLIN/TAZOBACTAM 3.375 GM in DEXTROSE 5% 50 ML IV ONE (05:05)
[2019-05-11] MEDS ORDERED: VANCOMYCIN 1,000 MG in DEXTROSE 5% 250 ML IV ONE (05:05)
[2019-05-11] MEDS ORDERED: PIPERACILLIN/TAZOBACTAM 3.375 GM VIAL IV ONE (05:23)
[2019-05-11] MEDS ORDERED: VANCOMYCIN 1,000 MG VIAL ONE (05:24)
[2019-05-11] MEDS ORDERED: VANCOMYCIN PER PHARMACY MC PRN (06:10)
[2019-05-11] MEDS ORDERED: ONDANSETRON 4 MG/2 ML VIAL IVP PRN (06:15)
[2019-05-11] MEDS ORDERED: diphenhydrAMINE 50 MG/ML VIAL IVP PRN (06:35)
[2019-05-11] MEDS ORDERED: IPRATROPIUM 0.02% 0.5 MG/2.5 ML NEBU IH SCH (07:00)
[2019-05-11] MEDS ORDERED: ALBUTEROL 0.083% 2.5 MG/3 ML NEBU IH SCH (07:00)
[2019-05-11] MEDS: ALBUTEROL SULFATE/IPRATROPIU 3 ML SOL IH SCH ×3 (07:00→19:02)
[2019-05-11] MEDS ORDERED: DEXT 5% /NACL 0.9% 1,000 ML IV SCH (07:00)
[2019-05-11] MEDS ORDERED: FUROSEMIDE 100 MG/10 ML VIAL IV SCH (07:45)
[2019-05-11] MEDS ORDERED: NACL 0.45% IV SCH (08:00)
[2019-05-11] MEDS ORDERED: SODIUM BICARBONATE IV SCH (08:00)
[2019-05-11] MEDS: ENOXAPARIN 80 MG/0.8 ML SYR SUBQ SCH (08:20)
[2019-05-11] MEDS ORDERED: ENOXAPARIN 40 MG/0.4 ML SYR SUBQ SCH (09:00)
[2019-05-11 09:45] LABS: BARBITURATE, URINE NEG. ng/ml (NEG <=200); BENZODIAZEPINE, URINE NEG. ng/mL (NEG <=200); CANNABINOID, URINE NEG. ng/mL (NEG <=50); COCAINE, URINE NEG. ng/mL (NEG <=300); OPIATE, URINE POS. ng/mL (NEG <=2000); PHENCYCLIDINE SCREEN,URINE NEG. ng/mL (NEG <=25)
[2019-05-11 09:51] LABS: APPEARANCE,URINE SL CLOUDY (CLEAR); BILIRUBIN,URINE 1+ (NEGATIVE); BLOOD, URINE 3+ (NEGATIVE); COLOR,URINE YELLOW (YELLOW); LEUKOCYTE ESTERASE ,URINE NEGATIVE (NEGATIVE); NITRITE, URINE NEGATIVE (NEGATIVE); PH,URINE 5.5 (5.0-9.0); UGLUCOSE NEGATIVE (NEGATIVE)
[2019-05-11 10:16] LABS: CREATINE KINASE MB 9.9 ng/mL (0-3.6)
[2019-05-11 10:23] LABS: ANION GAP 15.6 (8-16); CREATININE 1.7 mg/dL (0.6-1.3); POTASSIUM 4.6 mmol/L (3.5-5.1)
[2019-05-11 10:44] LABS: RBC,URINE >100 /HPF (0-5)
[2019-05-11 10:46] LABS: URINE AMORPHOUS URATE 2+ /HPF (None Seen)
[2019-05-11] MEDS ORDERED: CLINICAL MONITORING MC PRN (11:10)
[2019-05-11] MEDS: NACL 0.45% 1,000 ML IV SCH ×2 (12:15→21:37)
[2019-05-11] MEDS: PIPERACILLIN/TAZOBACTAM 3.375 GM in DEXTROSE 5% 50 ML IV SCH ×2 (13:24→21:33)
[2019-05-11] MEDS: PROPOFOL 1000 MG/100 ML PREMIX 100 ML IV PRN (13:26)
[2019-05-11] MEDS: THERAHONEY WOUND DRESSING TP SCH (16:00)
[2019-05-12] VITALS (48 sets, daily range): BP systolic 86–143; BP diastolic 45–101
[2019-05-12] MEDS: PROPOFOL 1000 MG/100 ML PREMIX 100 ML IV PRN (01:04)
[2019-05-12] MEDS: Z-GUARD PASTE TP SCH ×2 (01:09→12:37)
[2019-05-12] MEDS: ALBUTEROL SULFATE/IPRATROPIU 3 ML SOL IH SCH ×4 (01:15→19:21)
[2019-05-12] MEDS: NACL 0.45% 1,000 ML IV SCH ×2 (02:56→18:16)
[2019-05-12] MEDS: PIPERACILLIN/TAZOBACTAM 3.375 GM in DEXTROSE 5% 50 ML IV SCH ×3 (05:23→20:24)
[2019-05-12 05:51] LABS: BASOPHILS % (AUTO) 0.4 % (0.0-2.0); EOSINOPHILS # (AUTO) 0.3 K/uL (0-0.4); EOSINOPHILS % (AUTO) 2.6 % (0.0-4.0); HEMATOCRIT 33.3 % (36-48); HEMOGLOBIN 10.1 g/dL (12.0-16.0); LYMPHOCYTES # (AUTO) 1.8 K/uL (2.5-16.5); LYMPHOCYTES % (AUTO) 16.1 % (20.5-51.1); MEAN CORPUSCULAR HEMOGLOBIN 26 pg (27-31); MEAN CORPUSCULAR HGB CONC 30 g/dL (33-37); MEAN CORPUSCULAR VOLUME 84.4 fL (80-94); MONOCYTES # (AUTO) 0.8 K/uL (0.8-1.0); NEUTROPHILS # (AUTO) 8.2 K/uL (1.8-7.7); NEUTROPHILS % (AUTO) 73.9 % (42.2-75.2); PLATELET COUNT (AUTO) 164 K/uL (140-450); RED BLOOD CELL COUNT(AUTO) 3.94 MIL/uL (4.20-5.40); RED CELL DISTRIBUTION WIDTH 19.9 % (11.6-13.7)
[2019-05-12 07:50] LABS: ALBUMIN 2.4 g/dL (3.4-5.0); ANION GAP 16.3 (8-16); CARBON DIOXIDE 17.5 mmol/L (21-32); CREATININE 1.8 mg/dL (0.6-1.3); MAGNESIUM 1.8 mg/dL (1.8-2.4); POTASSIUM 3.8 mmol/L (3.5-5.1); TOTAL BILIRUBIN 0.9 mg/dL (0.0-1.0)
[2019-05-12] MEDS: PANTOPRAZOLE 40 MG INJ VIAL IVP SCH (08:25)
[2019-05-12] MEDS: VANCOMYCIN 750 MG in DEXTROSE 5% 250 ML IV SCH (08:25)
[2019-05-12] MEDS: ENOXAPARIN 80 MG/0.8 ML SYR SUBQ SCH (08:26)
[2019-05-12 08:32] LABS: CREATINE KINASE MB 8.1 ng/mL (0-3.6)
[2019-05-12] MEDS: MORPHINE SULFATE 4 MG/ML SYR IVP PRN ×2 (10:03→14:59)
[2019-05-12] MEDS ORDERED: NACL 0.9% 250 ML IV SCH (11:50)
[2019-05-12] MEDS: LORazepam 2 MG/ML VIAL IVP PRN (11:55)
[2019-05-12] MEDS: THERAHONEY WOUND DRESSING TP SCH (12:37)
[2019-05-12] MEDS: DILTIAZEM 25 MG/5 ML VIAL IVP PRN (13:36)
[2019-05-12] MEDS: MUPIROCIN CA NASAL 2% 1GM TUBE NS SCH (17:56)
[2019-05-12] MEDS: CHLORHEXADINE GLUC 2% CLOTH TP SCH (17:57)
[2019-05-13] VITALS (12 sets, daily range): BP systolic 90–137; BP diastolic 57–88
[2019-05-13] MEDS: ALBUTEROL SULFATE/IPRATROPIU 3 ML SOL IH SCH ×6 (01:07→22:58)
[2019-05-13] MEDS: Z-GUARD PASTE TP SCH ×2 (01:44→13:16)
[2019-05-13] MEDS: SODIUM BICARBONATE 8.4% 50 MEQ in DEXTROSE 5% 1,000 ML IV SCH ×2 (01:44→21:23)
[2019-05-13] MEDS ORDERED: SODIUM BICARBONATE 8.4% 50 MEQ/50 ML VIAL ONE ×2 (01:50→18:58)
[2019-05-13] MEDS: DILTIAZEM 25 MG/5 ML VIAL IVP PRN ×3 (02:02→12:15)
[2019-05-13] MEDS: MORPHINE SULFATE 4 MG/ML SYR IVP PRN ×3 (02:27→20:33)
[2019-05-13] MEDS: PIPERACILLIN/TAZOBACTAM 3.375 GM in DEXTROSE 5% 50 ML IV SCH ×3 (05:51→20:33)
[2019-05-13 06:16] LABS: HEMOGLOBIN 10.1 g/dL (12.0-16.0)
[2019-05-13 06:29] LABS: ANION GAP 15.6 (8-16); CARBON DIOXIDE 19.1 mmol/L (21-32); CREATININE 1.8 mg/dL (0.6-1.3); POTASSIUM 3.7 mmol/L (3.5-5.1)
[2019-05-13 07:11] LABS: HEMATOCRIT 33.7 % (36-48); MEAN CORPUSCULAR HEMOGLOBIN 26 pg (27-31); MEAN CORPUSCULAR HGB CONC 30 g/dL (33-37); MEAN CORPUSCULAR VOLUME 86.5 fL (80-94); PLATELET COUNT (AUTO) 168 K/uL (140-450); RED CELL DISTRIBUTION WIDTH 20.5 % (11.6-13.7); WHITE BLOOD COUNT (AUTO) 9.4 K/uL (4.8-10.8)
[2019-05-13 07:39] LABS: EOSINOPHILS % (MANUAL) 5 % (0-4); LYMPHOCYTES % (MANUAL) 20 % (20-46); MONOCYTES % (MANUAL) 8 % (5-12)
[2019-05-13] MEDS ORDERED: methylPREDNISolone SS 40 MG/ML VIAL IVP SCH (08:35)
[2019-05-13] MEDS: PANTOPRAZOLE 40 MG INJ VIAL IVP SCH (08:40)
[2019-05-13] MEDS: ENOXAPARIN 80 MG/0.8 ML SYR SUBQ SCH (08:50)
[2019-05-13] MEDS: VANCOMYCIN 750 MG in DEXTROSE 5% 250 ML IV SCH (08:52)
[2019-05-13] MEDS ORDERED: ALBUTEROL SULFATE/IPRATROPIU 3 ML SOL IH PRN (09:20)
[2019-05-13] MEDS: methylPREDNISolone SS 40 MG/ML VIAL IVP SCH ×2 (12:12→17:47)
[2019-05-13] MEDS: CHLORHEXADINE GLUC 2% CLOTH TP SCH (13:20)
[2019-05-13] MEDS: MUPIROCIN CA NASAL 2% 1GM TUBE NS SCH (13:20)
[2019-05-13] MEDS: ACETYLCYSTEINE 10% (100 MG/ML) 100 MG/ML VIAL INH SCH ×2 (15:22→23:13)
[2019-05-13] MEDS: DILTIAZEM 25 MG/5 ML VIAL IVP SCH (17:48)
[2019-05-13] MEDS ORDERED: FUROSEMIDE 40 MG/4 ML VIAL IVP SCH (22:30)
[2019-05-13] MEDS ORDERED: ACETYLCYSTEINE 10% (100 MG/ML) 100 MG/ML VIAL ONE (23:20)
[2019-05-14] VITALS (12 sets, daily range): BP systolic 110–148; BP diastolic 65–84
[2019-05-14] MEDS: DILTIAZEM 25 MG/5 ML VIAL IVP SCH ×5 (00:05→23:09)
[2019-05-14] MEDS: Z-GUARD PASTE TP SCH ×2 (00:06→12:29)
[2019-05-14] MEDS: methylPREDNISolone SS 40 MG/ML VIAL IVP SCH ×5 (00:06→23:08)
[2019-05-14] MEDS: ALBUTEROL SULFATE/IPRATROPIU 3 ML SOL IH SCH ×6 (03:00→23:00)
[2019-05-14] MEDS: PIPERACILLIN/TAZOBACTAM 3.375 GM in DEXTROSE 5% 50 ML IV SCH ×3 (04:16→20:24)
[2019-05-14 06:40] LABS: ALBUMIN 2.5 g/dL (3.4-5.0); ANION GAP 17.6 (8-16); CARBON DIOXIDE 20.1 mmol/L (21-32); CREATININE 1.7 mg/dL (0.6-1.3); POTASSIUM 3.7 mmol/L (3.5-5.1); TOTAL BILIRUBIN 0.7 mg/dL (0.0-1.0)
[2019-05-14 07:03] LABS: BASOPHILS % (AUTO) 0.3 % (0.0-2.0); EOSINOPHILS % (AUTO) 0.1 % (0.0-4.0); HEMATOCRIT 33.7 % (36-48); HEMOGLOBIN 10.4 g/dL (12.0-16.0); LYMPHOCYTES # (AUTO) 0.7 K/uL (2.5-16.5); LYMPHOCYTES % (AUTO) 9.2 % (20.5-51.1); MEAN CORPUSCULAR HEMOGLOBIN 26 pg (27-31); MEAN CORPUSCULAR HGB CONC 31 g/dL (33-37); MEAN CORPUSCULAR VOLUME 83.6 fL (80-94); MONOCYTES # (AUTO) 0.1 K/uL (0.8-1.0); MONOCYTES % (AUTO) 1.7 % (1.7-9.3); NEUTROPHILS # (AUTO) 6.6 K/uL (1.8-7.7); NEUTROPHILS % (AUTO) 88.7 % (42.2-75.2); PLATELET COUNT (AUTO) 159 K/uL (140-450); RED BLOOD CELL COUNT(AUTO) 4.03 MIL/uL (4.20-5.40); RED CELL DISTRIBUTION WIDTH 19.7 % (11.6-13.7); WHITE BLOOD COUNT (AUTO) 7.5 K/uL (4.8-10.8)
[2019-05-14] MEDS: ACETYLCYSTEINE 10% (100 MG/ML) 100 MG/ML VIAL INH SCH ×2 (07:09→15:18)
[2019-05-14] MEDS: MORPHINE SULFATE 4 MG/ML SYR IVP PRN ×4 (07:38→21:05)
[2019-05-14] MEDS: VANCOMYCIN 750 MG in DEXTROSE 5% 250 ML IV SCH (08:57)
[2019-05-14] MEDS: PANTOPRAZOLE 40 MG INJ VIAL IVP SCH (08:57)
[2019-05-14] MEDS: ENOXAPARIN 80 MG/0.8 ML SYR SUBQ SCH (09:00)
[2019-05-14] MEDS ORDERED: THERAHONEY WOUND DRESSING TP SCH (09:00)
[2019-05-14] MEDS: THERAHONEY WOUND DRESSING TP SCH (13:00)
[2019-05-14] MEDS ORDERED: FUROSEMIDE 40 MG/4 ML VIAL IVP SCH (15:00)
[2019-05-14] MEDS: CHLORHEXADINE GLUC 2% CLOTH TP SCH (16:45)
[2019-05-14] MEDS: MUPIROCIN CA NASAL 2% 1GM TUBE NS SCH (17:14)
[2019-05-14] MEDS: SODIUM BICARBONATE 8.4% 50 MEQ in DEXTROSE 5% 1,000 ML IV SCH (19:01)
[2019-05-15] VITALS (9 sets, daily range): BP systolic 107–127; BP diastolic 66–88
[2019-05-15] MEDS: DILTIAZEM 25 MG/5 ML VIAL IVP PRN ×2 (02:57→08:09)
[2019-05-15] MEDS: Z-GUARD PASTE TP SCH ×2 (02:58→13:00)
[2019-05-15] MEDS: ALBUTEROL SULFATE/IPRATROPIU 3 ML SOL IH SCH ×7 (03:07→23:33)
[2019-05-15] MEDS: ACETYLCYSTEINE 10% (100 MG/ML) 100 MG/ML VIAL INH SCH ×4 (03:07→23:33)
[2019-05-15] MEDS: methylPREDNISolone SS 40 MG/ML VIAL IVP SCH ×4 (05:17→23:56)
[2019-05-15] MEDS: DILTIAZEM 25 MG/5 ML VIAL IVP SCH ×4 (05:17→23:55)
[2019-05-15] MEDS: PIPERACILLIN/TAZOBACTAM 3.375 GM in DEXTROSE 5% 50 ML IV SCH ×3 (05:18→21:19)
[2019-05-15 06:30] LABS: ANION GAP 14.9 (8-16); CARBON DIOXIDE 22.6 mmol/L (21-32); CREATININE 1.8 mg/dL (0.6-1.3); POTASSIUM 3.5 mmol/L (3.5-5.1)
[2019-05-15 06:36] LABS: MAGNESIUM 1.9 mg/dL (1.8-2.4); PHOSPHORUS 4.5 mg/dL (2.5-4.9)
[2019-05-15] MEDS: PANTOPRAZOLE 40 MG INJ VIAL IVP SCH (08:08)
[2019-05-15] MEDS: ENOXAPARIN 80 MG/0.8 ML SYR SUBQ SCH (08:10)
[2019-05-15] MEDS ORDERED: VANCOMYCIN PER PHARMACY MC PRN (09:05)
[2019-05-15] MEDS: VANCOMYCIN 750 MG in DEXTROSE 5% 250 ML IV SCH (09:38)
[2019-05-15] MEDS: MORPHINE SULFATE 4 MG/ML SYR IVP PRN ×2 (10:31→14:01)
[2019-05-15] MEDS ORDERED: FUROSEMIDE 20 MG/2 ML VIAL IVP SCH (12:00)
[2019-05-15] MEDS: DEXTROSE 5% 1,000 ML IV SCH (12:07)
[2019-05-15] MEDS: CHLORHEXADINE GLUC 2% CLOTH TP SCH (16:20)
[2019-05-15] MEDS: MUPIROCIN CA NASAL 2% 1GM TUBE NS SCH (16:20)
[2019-05-16] VITALS: BP 120/92
[2019-05-16] MEDS: Z-GUARD PASTE TP SCH ×2 (01:00→13:34)
[2019-05-16] MEDS: DILTIAZEM 25 MG/5 ML VIAL IVP PRN ×3 (03:11→16:02)
[2019-05-16] MEDS: ALBUTEROL SULFATE/IPRATROPIU 3 ML SOL IH SCH ×6 (03:27→22:13)
[2019-05-16 04:00] VITALS: BP 121/96
[2019-05-16] MEDS: ACETYLCYSTEINE 10% (100 MG/ML) 100 MG/ML VIAL INH SCH (06:38)
[2019-05-16] MEDS: DILTIAZEM 25 MG/5 ML VIAL IVP SCH ×4 (07:01→18:00)
[2019-05-16] MEDS: methylPREDNISolone SS 40 MG/ML VIAL IVP SCH ×3 (07:02→21:31)
[2019-05-16 07:46] LABS: MAGNESIUM 1.9 mg/dL (1.8-2.4); PHOSPHORUS 4.4 mg/dL (2.5-4.9)
[2019-05-16] MEDS: LORazepam 2 MG/ML VIAL IVP PRN ×2 (07:52→16:05)
[2019-05-16 07:53] LABS: HEMATOCRIT 35.3 % (36-48); HEMOGLOBIN 10.8 g/dL (12.0-16.0); MEAN CORPUSCULAR HEMOGLOBIN 26 pg (27-31); MEAN CORPUSCULAR HGB CONC 31 g/dL (33-37); MEAN CORPUSCULAR VOLUME 83.8 fL (80-94); PLATELET COUNT (AUTO) 219 K/uL (140-450); RED BLOOD CELL COUNT(AUTO) 4.21 MIL/uL (4.20-5.40); RED CELL DISTRIBUTION WIDTH 19.6 % (11.6-13.7); WHITE BLOOD COUNT (AUTO) 9.6 K/uL (4.8-10.8)
[2019-05-16 07:55] LABS: ANION GAP 16.8 (8-16); CARBON DIOXIDE 22.1 mmol/L (21-32); CREATININE 2.2 mg/dL (0.6-1.3); POTASSIUM 3.9 mmol/L (3.5-5.1); TOTAL BILIRUBIN 0.6 mg/dL (0.0-1.0)
[2019-05-16 07:56] LABS: ALBUMIN 2.8 g/dL (3.4-5.0)
[2019-05-16 08:05] VITALS: BP 145/98
[2019-05-16 09:51] LABS: LYMPHOCYTES % (MANUAL) 6 % (20-46); MONOCYTES % (MANUAL) 4 % (5-12)
[2019-05-16] MEDS: VANCOMYCIN 750 MG in DEXTROSE 5% 250 ML IV SCH (10:32)
[2019-05-16] MEDS: PANTOPRAZOLE 40 MG INJ VIAL IVP SCH (10:38)
[2019-05-16] MEDS: FUROSEMIDE 20 MG/2 ML VIAL IVP SCH (10:38)
[2019-05-16] MEDS: ENOXAPARIN 80 MG/0.8 ML SYR SUBQ SCH (10:42)
[2019-05-16] MEDS: THERAHONEY WOUND DRESSING TP SCH (11:18)
[2019-05-16 12:00] VITALS: BP 96/77
[2019-05-16] MEDS ORDERED: DIGOXIN 0.25 MG/ML AMP IV SCH (12:00)
[2019-05-16] MEDS: DEXTROSE 5% 1,000 ML IV SCH (12:13)
[2019-05-16 16:00] VITALS: BP 122/71
[2019-05-16] MEDS: CHLORHEXADINE GLUC 2% CLOTH TP SCH (18:07)
[2019-05-16] MEDS: MUPIROCIN CA NASAL 2% 1GM TUBE NS SCH (18:07)
[2019-05-16] MEDS: ALBUMIN HUMAN 25% 100 ML IV SCH (18:08)
[2019-05-16 20:00] VITALS: BP 141/72
[2019-05-17] VITALS: BP 144/91
[2019-05-17] MEDS: DILTIAZEM 25 MG/5 ML VIAL IVP SCH ×2 (00:02→06:10)
[2019-05-17] MEDS: Z-GUARD PASTE TP SCH ×2 (00:24→13:24)
[2019-05-17] MEDS: ALBUTEROL SULFATE/IPRATROPIU 3 ML SOL IH SCH ×6 (03:46→23:28)
[2019-05-17 04:00] VITALS: BP 137/84
[2019-05-17] MEDS: ALBUMIN HUMAN 25% 100 ML IV SCH (05:04)
[2019-05-17 08:00] VITALS: BP 129/88
[2019-05-17 08:12] LABS: PHOSPHORUS 3.7 mg/dL (2.5-4.9)
[2019-05-17 08:34] LABS: ANION GAP 14.7 (8-16); CARBON DIOXIDE 23.5 mmol/L (21-32); CREATININE 2.1 mg/dL (0.6-1.3); POTASSIUM 4.2 mmol/L (3.5-5.1)
[2019-05-17] MEDS ORDERED: DIGOXIN 0.25 MG/ML AMP IV SCH (09:00)
[2019-05-17] MEDS: methylPREDNISolone SS 40 MG/ML VIAL IVP SCH ×2 (10:12→21:03)
[2019-05-17] MEDS: FUROSEMIDE 20 MG/2 ML VIAL IVP SCH (10:13)
[2019-05-17] MEDS: ENOXAPARIN 80 MG/0.8 ML SYR SUBQ SCH (10:14)
[2019-05-17 12:00] VITALS: BP 139/92
[2019-05-17] MEDS: DILTIAZEM 60 MG TAB PO SCH ×2 (13:23→16:23)
[2019-05-17 16:00] VITALS: BP 145/91
[2019-05-17] MEDS: MORPHINE SULFATE 4 MG/ML SYR IVP PRN ×2 (16:24→22:23)
[2019-05-17 20:01] VITALS: BP 155/92
[2019-05-18] VITALS: BP 144/84
[2019-05-18] MEDS: Z-GUARD PASTE TP SCH ×2 (01:31→13:29)
[2019-05-18] MEDS: ALBUTEROL SULFATE/IPRATROPIU 3 ML SOL IH SCH ×6 (02:53→23:12)
[2019-05-18] MEDS: LORazepam 2 MG/ML VIAL IVP PRN ×3 (03:19→18:05)
[2019-05-18 04:00] VITALS: BP 151/92
[2019-05-18 07:17] LABS: ANION GAP 15.1 (8-16); BASOPHILS % (AUTO) 0.1 % (0.0-2.0); CARBON DIOXIDE 24.1 mmol/L (21-32); CREATININE 1.6 mg/dL (0.6-1.3); HEMATOCRIT 31.9 % (36-48); LYMPHOCYTES # (AUTO) 0.4 K/uL (2.5-16.5); LYMPHOCYTES % (AUTO) 4.4 % (20.5-51.1); MEAN CORPUSCULAR HEMOGLOBIN 26 pg (27-31); MEAN CORPUSCULAR HGB CONC 31 g/dL (33-37); MEAN CORPUSCULAR VOLUME 82.3 fL (80-94); MONOCYTES # (AUTO) 0.4 K/uL (0.8-1.0); MONOCYTES % (AUTO) 4.2 % (1.7-9.3); NEUTROPHILS # (AUTO) 8.7 K/uL (1.8-7.7); NEUTROPHILS % (AUTO) 91.3 % (42.2-75.2); PLATELET COUNT (AUTO) 180 K/uL (140-450); POTASSIUM 4.2 mmol/L (3.5-5.1); RED BLOOD CELL COUNT(AUTO) 3.87 MIL/uL (4.20-5.40); RED CELL DISTRIBUTION WIDTH 19.2 % (11.6-13.7); WHITE BLOOD COUNT (AUTO) 9.6 K/uL (4.8-10.8)
[2019-05-18 08:00] VITALS: BP 141/85
[2019-05-18] MEDS: methylPREDNISolone SS 40 MG/ML VIAL IVP SCH ×2 (08:23→22:46)
[2019-05-18] MEDS: FAMOTIDINE 20 MG TAB PO SCH (08:24)
[2019-05-18] MEDS: DIGOXIN 0.125 MG TAB PO SCH (08:24)
[2019-05-18] MEDS: FUROSEMIDE 20 MG TAB PO SCH (08:24)
[2019-05-18] MEDS: MORPHINE SULFATE 4 MG/ML SYR IVP PRN ×2 (08:25→13:54)
[2019-05-18] MEDS: DILTIAZEM 60 MG TAB PO SCH ×3 (08:25→17:03)
[2019-05-18] MEDS: ENOXAPARIN 80 MG/0.8 ML SYR SUBQ SCH (08:26)
[2019-05-18] MEDS: THERAHONEY WOUND DRESSING TP SCH (09:00)
[2019-05-18] MEDS ORDERED: CARVEDILOL 6.25 MG TAB PO SCH (11:10)
[2019-05-18] MEDS: DILTIAZEM 25 MG/5 ML VIAL IVP PRN (11:16)
[2019-05-18 12:00] VITALS: BP 141/88
[2019-05-18] MEDS ORDERED: VANCOMYCIN 750 MG in DEXTROSE 5% 250 ML IV SCH (12:00)
[2019-05-18] MEDS: DEXTROSE 5% 1,000 ML IV SCH (13:54)
[2019-05-18 16:00] VITALS: BP 126/89
[2019-05-18 20:00] VITALS: BP 130/76
[2019-05-18] MEDS: PIPERACILLIN/TAZOBACTAM 3.375 GM in DEXTROSE 5% 50 ML IV SCH (22:45)
[2019-05-18] MEDS: CARVEDILOL 6.25 MG TAB PO SCH (22:46)
[2019-05-19] VITALS: BP 130/80
[2019-05-19] MEDS: Z-GUARD PASTE TP SCH ×2 (01:00→12:50)
[2019-05-19] MEDS: ALBUTEROL SULFATE/IPRATROPIU 3 ML SOL IH SCH ×6 (03:31→23:36)
[2019-05-19 04:00] VITALS: BP 140/85
[2019-05-19] MEDS: PIPERACILLIN/TAZOBACTAM 3.375 GM in DEXTROSE 5% 50 ML IV SCH ×3 (05:04→20:36)
[2019-05-19] MEDS: LORazepam 2 MG/ML VIAL IVP PRN ×2 (05:41→21:38)
[2019-05-19 08:00] VITALS: BP 153/90
[2019-05-19] MEDS: FUROSEMIDE 20 MG TAB PO SCH (08:08)
[2019-05-19] MEDS: FAMOTIDINE 20 MG TAB PO SCH (08:08)
[2019-05-19] MEDS: CARVEDILOL 6.25 MG TAB PO SCH ×2 (08:08→20:36)
[2019-05-19] MEDS: DILTIAZEM 60 MG TAB PO SCH ×3 (08:08→17:33)
[2019-05-19] MEDS: methylPREDNISolone SS 40 MG/ML VIAL IVP SCH (08:09)
[2019-05-19] MEDS: ENOXAPARIN 80 MG/0.8 ML SYR SUBQ SCH (08:11)
[2019-05-19] MEDS: MORPHINE SULFATE 4 MG/ML SYR IVP PRN ×2 (08:14→15:33)
[2019-05-19] MEDS ORDERED: methylPREDNISolone SS 40 MG/ML VIAL IVP SCH (10:00)
[2019-05-19 12:00] VITALS: BP 138/88
[2019-05-19] MEDS ORDERED: MULTIVITAMIN/MINERALS 1 TAB PO SCH (13:30)
[2019-05-19] MEDS ORDERED: ASCORBIC ACID 500 MG TAB PO SCH (13:30)
[2019-05-19 15:37] LABS: ANION GAP 12.6 (8-16); CARBON DIOXIDE 24.7 mmol/L (21-32); CREATININE 1.4 mg/dL (0.6-1.3); POTASSIUM 4.3 mmol/L (3.5-5.1)
[2019-05-19 16:00] VITALS: BP 131/108
[2019-05-19] MEDS: DEXTROSE 5% 1,000 ML IV SCH (17:33)
[2019-05-19 20:00] VITALS: BP 133/88
[2019-05-20] VITALS: BP 150/79
[2019-05-20] MEDS: Z-GUARD PASTE TP SCH ×2 (00:35→12:52)
[2019-05-20] MEDS: ALBUTEROL SULFATE/IPRATROPIU 3 ML SOL IH SCH ×6 (03:43→22:53)
[2019-05-20 04:00] VITALS: BP 126/84
[2019-05-20] MEDS: PIPERACILLIN/TAZOBACTAM 3.375 GM in DEXTROSE 5% 50 ML IV SCH ×3 (04:19→20:26)
[2019-05-20] MEDS: DEXTROSE 5% 1,000 ML IV SCH ×2 (05:02→20:25)
[2019-05-20 05:13] LABS: BASOPHILS % (AUTO) 0.3 % (0.0-2.0); EOSINOPHILS # (AUTO) 0.1 K/uL (0-0.4); EOSINOPHILS % (AUTO) 0.7 % (0.0-4.0); HEMATOCRIT 35.8 % (36-48); HEMOGLOBIN 10.7 g/dL (12.0-16.0); LYMPHOCYTES % (AUTO) 9.5 % (20.5-51.1); MEAN CORPUSCULAR HEMOGLOBIN 25 pg (27-31); MEAN CORPUSCULAR HGB CONC 30 g/dL (33-37); MEAN CORPUSCULAR VOLUME 83.1 fL (80-94); MONOCYTES # (AUTO) 0.7 K/uL (0.8-1.0); MONOCYTES % (AUTO) 6.1 % (1.7-9.3); PLATELET COUNT (AUTO) 180 K/uL (140-450); RED BLOOD CELL COUNT(AUTO) 4.31 MIL/uL (4.20-5.40); RED CELL DISTRIBUTION WIDTH 19.3 % (11.6-13.7); WHITE BLOOD COUNT (AUTO) 10.8 K/uL (4.8-10.8)
[2019-05-20 05:38] LABS: ANION GAP 13.2 (8-16); CARBON DIOXIDE 24.1 mmol/L (21-32); CREATININE 1.4 mg/dL (0.6-1.3); POTASSIUM 4.3 mmol/L (3.5-5.1)
[2019-05-20 05:42] LABS: NEUTROPHILS % (AUTO) 83.4 % (42.2-75.2)
[2019-05-20] MEDS ORDERED: methylPREDNISolone SS 40 MG/ML VIAL IVP SCH (06:30)
[2019-05-20 08:00] VITALS: BP 140/95
[2019-05-20] MEDS: ENOXAPARIN 80 MG/0.8 ML SYR SUBQ SCH (08:52)
[2019-05-20] MEDS: DILTIAZEM 60 MG TAB PO SCH ×3 (08:56→16:03)
[2019-05-20] MEDS: CARVEDILOL 6.25 MG TAB PO SCH ×2 (08:56→20:28)
[2019-05-20] MEDS: ASCORBIC ACID 500 MG TAB PO SCH (08:56)
[2019-05-20] MEDS: MULTIVITAMIN/MINERALS 1 TAB PO SCH (08:56)
[2019-05-20] MEDS: FAMOTIDINE 20 MG TAB PO SCH (08:57)
[2019-05-20] MEDS ORDERED: VANCOMYCIN PER PHARMACY MC PRN (10:55)
[2019-05-20 12:00] VITALS: BP 134/88
[2019-05-20] MEDS: VANCOMYCIN 750 MG in DEXTROSE 5% 250 ML IV SCH (12:51)
[2019-05-20 16:00] VITALS: BP 132/78
[2019-05-20] MEDS: MORPHINE SULFATE 4 MG/ML SYR IVP PRN (16:04)
[2019-05-20 20:00] VITALS: BP 117/85
[2019-05-21] VITALS: BP 140/89
[2019-05-21] MEDS: MORPHINE SULFATE 4 MG/ML SYR IVP PRN (00:09)
[2019-05-21] MEDS: Z-GUARD PASTE TP SCH ×2 (00:11→14:01)
[2019-05-21] MEDS: ALBUTEROL SULFATE/IPRATROPIU 3 ML SOL IH SCH ×6 (02:56→23:00)
[2019-05-21 04:00] VITALS: BP 133/84
[2019-05-21] MEDS: methylPREDNISolone SS 40 MG/ML VIAL IVP SCH (05:31)
[2019-05-21] MEDS: PIPERACILLIN/TAZOBACTAM 3.375 GM in DEXTROSE 5% 50 ML IV SCH ×3 (05:31→20:32)
[2019-05-21 08:00] VITALS: BP 136/97
[2019-05-21] MEDS: FAMOTIDINE 20 MG TAB PO SCH (08:59)
[2019-05-21] MEDS: MULTIVITAMIN/MINERALS 1 TAB PO SCH (08:59)
[2019-05-21] MEDS: ASCORBIC ACID 500 MG TAB PO SCH (08:59)
[2019-05-21] MEDS ORDERED: FUROSEMIDE 20 MG TAB PO SCH (09:00)
[2019-05-21] MEDS: THERAHONEY WOUND DRESSING TP SCH (09:00)
[2019-05-21] MEDS: DIGOXIN 0.125 MG TAB PO SCH (09:00)
[2019-05-21] MEDS: CARVEDILOL 6.25 MG TAB PO SCH ×2 (09:00→20:31)
[2019-05-21] MEDS: DILTIAZEM 60 MG TAB PO SCH ×3 (09:00→17:21)
[2019-05-21] MEDS: LORazepam 2 MG/ML VIAL IVP PRN (09:01)
[2019-05-21] MEDS: ENOXAPARIN 80 MG/0.8 ML SYR SUBQ SCH (09:25)
[2019-05-21] MEDS: VANCOMYCIN 750 MG in DEXTROSE 5% 250 ML IV SCH (11:34)
[2019-05-21 11:45] VITALS: BP 111/82
[2019-05-21 14:22] LABS: BASOPHILS % (AUTO) 0.1 % (0.0-2.0); HEMATOCRIT 33.3 % (36-48); HEMOGLOBIN 10.4 g/dL (12.0-16.0); LYMPHOCYTES # (AUTO) 0.5 K/uL (2.5-16.5); LYMPHOCYTES % (AUTO) 5.3 % (20.5-51.1); MEAN CORPUSCULAR HEMOGLOBIN 25 pg (27-31); MEAN CORPUSCULAR HGB CONC 31 g/dL (33-37); MEAN CORPUSCULAR VOLUME 81.4 fL (80-94); MONOCYTES # (AUTO) 0.2 K/uL (0.8-1.0); MONOCYTES % (AUTO) 1.5 % (1.7-9.3); NEUTROPHILS # (AUTO) 9.4 K/uL (1.8-7.7); NEUTROPHILS % (AUTO) 93.1 % (42.2-75.2); PLATELET COUNT (AUTO) 224 K/uL (140-450); RED CELL DISTRIBUTION WIDTH 18.9 % (11.6-13.7); WHITE BLOOD COUNT (AUTO) 10.1 K/uL (4.8-10.8)
[2019-05-21 14:46] LABS: ALBUMIN 2.7 g/dL (3.4-5.0); ANION GAP 11.7 (8-16); CARBON DIOXIDE 25.5 mmol/L (21-32); CREATININE 1.5 mg/dL (0.6-1.3); POTASSIUM 4.2 mmol/L (3.5-5.1); TOTAL BILIRUBIN 0.6 mg/dL (0.0-1.0)
[2019-05-21] MEDS: DEXTROSE 5% 1,000 ML IV SCH (15:51)
[2019-05-21 16:00] VITALS: BP 118/88
[2019-05-21 20:00] VITALS: BP 147/92
[2019-05-22] VITALS: BP 128/93
[2019-05-22] MEDS: Z-GUARD PASTE TP SCH ×2 (01:29→12:28)
[2019-05-22] MEDS: ALBUTEROL SULFATE/IPRATROPIU 3 ML SOL IH SCH ×5 (03:00→19:31)
[2019-05-22 04:00] VITALS: BP 137/83
[2019-05-22] MEDS: PIPERACILLIN/TAZOBACTAM 3.375 GM in DEXTROSE 5% 50 ML IV SCH (04:01)
[2019-05-22] MEDS: MORPHINE SULFATE 2 MG/ML SYR IVP PRN ×2 (04:54→12:28)
[2019-05-22] MEDS: methylPREDNISolone SS 40 MG/ML VIAL IVP SCH (05:43)
[2019-05-22 07:20] LABS: POTASSIUM 4.1 mmol/L (3.5-5.1)
[2019-05-22 07:21] LABS: ANION GAP 10.9 (8-16); CARBON DIOXIDE 27.2 mmol/L (21-32); CREATININE 1.4 mg/dL (0.6-1.3)
[2019-05-22 08:25] VITALS: BP 136/80
[2019-05-22] MEDS: MULTIVITAMIN/MINERALS 1 TAB PO SCH (09:15)
[2019-05-22] MEDS: ASCORBIC ACID 500 MG TAB PO SCH (09:15)
[2019-05-22] MEDS: FAMOTIDINE 20 MG TAB PO SCH (09:15)
[2019-05-22] MEDS: DILTIAZEM 60 MG TAB PO SCH ×3 (09:15→17:40)
[2019-05-22] MEDS: CARVEDILOL 6.25 MG TAB PO SCH ×3 (09:16→22:17)
[2019-05-22] MEDS: LORazepam 2 MG/ML VIAL IVP PRN (09:16)
[2019-05-22] MEDS: ENOXAPARIN 80 MG/0.8 ML SYR SUBQ SCH (09:17)
[2019-05-22 12:30] VITALS: BP 138/90
[2019-05-22] MEDS: DEXTROSE 5% 1,000 ML IV SCH (15:01)
[2019-05-22 16:08] VITALS: BP 118/86
[2019-05-22] MEDS ORDERED: PRED10TA5 PO (17:32)
[2019-05-22 20:00] VITALS: BP 124/82
[2019-05-23] MEDS ORDERED: predniSONE 10 MG TAB PO SCH (09:00)
== END 2019-05-22 22:55 | disposition home health service (06) | DRG 720 ==
LOC: MED 02:30 → MIC 05:24 → MTU 05-15 17:05 → MIC 05-19 06:53 → MTU 05-20 05:40
PROVIDERS: ADMIT Internal Medicine Cardiovascular Disease; ATTEND Internal Medicine Cardiovascular Disease
PROC: 5A1935Z Respiratory Ventilation, Less than 24 Consecutive Hours (ICD-10-PCS; principal; 2019-05-11)
PROC: 0BH17EZ Insertion of Endotracheal Airway into Trachea, Via Natural or Artificial Opening (ICD-10-PCS; 2019-05-11)
PROC: 5A1935Z Respiratory Ventilation, Less than 24 Consecutive Hours (ICD-10-PCS; 2019-05-12)
DX: A41.9 Sepsis, unspecified organism (principal); J96.00 Acute respiratory failure, unspecified whether with hypoxia or hypercapnia; R65.21 Severe sepsis with septic shock; J69.0 Pneumonitis due to inhalation of food and vomit; I48.0 Paroxysmal atrial fibrillation; N17.9 Acute kidney failure, unspecified; E11.22 Type 2 diabetes mellitus with diabetic chronic kidney disease; I48.92 Unspecified atrial flutter; I13.0 Hypertensive heart and chronic kidney disease with heart failure and stage 1 through stage 4 chronic kidney disease, or unspecified chronic kidney disease; I42.9 Cardiomyopathy, unspecified; D63.1 Anemia in chronic kidney disease; E87.0 Hyperosmolality and hypernatremia; I50.20 Unspecified systolic (congestive) heart failure; I08.3 Combined rheumatic disorders of mitral, aortic and tricuspid valves; N18.9 Chronic kidney disease, unspecified; Z86.73 Personal history of transient ischemic attack (TIA), and cerebral infarction without residual deficits; Z87.891 Personal history of nicotine dependence; Z95.0 Presence of cardiac pacemaker; Z79.899 Other long term (current) drug therapy
CPT/HCPCS: 36415; 36600; 51702; 70450; 71045; 76770; 80048; 80053; 80202; 80305; 81001; 82550; 82553; 82803; 82948; 83605; 83735; 83880; 84100; 84300; 84484; 85025; 85651; 86140; 87040; 87070; 87081; 87086; 87186; 87205; 92526; 92610; 93005; 94003; 94640; 96361; 96365; 96375; 99291; C9113; G0482; J0330; J1160; J1650; J1940; J2060; J2270; J2405; J2543; J2704; J2920; J3370; J3490; J7030; J7060; J7620; P9046; Q0092

== ENCOUNTER 2019-06-24 11:36 | Inpatient (IN) | payer OTHER ==
[~2019-06-24] VITALS: Ht 170.2 cm; Wt 66.2 kg
[2019-06-24] VITALS (10 sets, daily range): BP systolic 127–153; BP diastolic 80–116
[~2019-06-24 11:36] MED LIST changes: -DIL1I IVP; -LOV40I SUBQ; -MORP4SOL14 IVP; -MSCON30 PO; -OXYC5TAB3 PO; -PIPE1SOL IV; +PRED10TA5 PO; -VANC1PLA15 IV; -[UNRECOGNIZED DRUG - CODE] IVP
[2019-06-24 12:50] LABS: BASOPHILS % (AUTO) 0.4 % (0.0-2.0); EOSINOPHILS # (AUTO) 0.1 K/uL (0-0.4); EOSINOPHILS % (AUTO) 0.6 % (0.0-4.0); HEMATOCRIT 36.4 % (36-48); HEMOGLOBIN 11.3 g/dL (12.0-16.0); LYMPHOCYTES # (AUTO) 1.9 K/uL (2.5-16.5); LYMPHOCYTES % (AUTO) 17.3 % (20.5-51.1); MEAN CORPUSCULAR HEMOGLOBIN 25 pg (27-31); MEAN CORPUSCULAR HGB CONC 31 g/dL (33-37); MEAN CORPUSCULAR VOLUME 80.4 fL (80-94); MONOCYTES % (AUTO) 9.6 % (1.7-9.3); NEUTROPHILS # (AUTO) 7.9 K/uL (1.8-7.7); NEUTROPHILS % (AUTO) 72.1 % (42.2-75.2); PLATELET COUNT (AUTO) 197 K/uL (140-450); RED BLOOD CELL COUNT(AUTO) 4.53 MIL/uL (4.20-5.40); RED CELL DISTRIBUTION WIDTH 21.2 % (11.6-13.7)
[2019-06-24 12:56] LABS: PROTHROMBIN TIME 12.4 secs (10.8-13.4)
[2019-06-24 12:59] LABS: ANION GAP 16.2 (8-16); CREATININE 1.5 mg/dL (0.6-1.3); POTASSIUM 4.2 mmol/L (3.5-5.1)
[2019-06-24 13:05] LABS: ALBUMIN 3.3 g/dL (3.4-5.0); TOTAL BILIRUBIN 1.5 mg/dL (0.0-1.0)
[2019-06-24 13:06] LABS: WHITE BLOOD COUNT (AUTO) 10.9 K/uL (4.8-10.8)
[2019-06-24 13:36] LABS: APPEARANCE,URINE HAZY (CLEAR); BILIRUBIN,URINE NEGATIVE (NEGATIVE); BLOOD, URINE TRACE-I (NEGATIVE); COLOR,URINE YELLOW (YELLOW); LEUKOCYTE ESTERASE ,URINE NEGATIVE (NEGATIVE); NITRITE, URINE NEGATIVE (NEGATIVE); PH,URINE 5.5 (5.0-9.0); UGLUCOSE NEGATIVE (NEGATIVE)
[2019-06-24] MEDS ORDERED: ASPIRIN 600 MG SUPP RC ONE (13:40)
[2019-06-24 13:48] LABS: RBC,URINE 0-5 /HPF (0-5); WBC,URINE 0-5 /HPF (0-5)
[2019-06-24] MEDS ORDERED: NACL 0.9% 500 ML IV ONE (13:50)
[2019-06-24] MEDS ORDERED: FUROSEMIDE 20 MG/2 ML VIAL IVP ONE (13:50)
[2019-06-24] MEDS ORDERED: ASPI-1718 PO (14:03)
[2019-06-24] MEDS ORDERED: METO100T14 PO (14:03)
[2019-06-24] MEDS ORDERED: LISI5TAB18 PO (14:03)
[2019-06-24] MEDS ORDERED: SPIR50TA PO (14:03)
[2019-06-24] MEDS ORDERED: ATRN INH (14:03)
[2019-06-24] MEDS ORDERED: DOCU-299 PO (14:03)
[2019-06-24] MEDS ORDERED: POTA20TE15 PO (14:03)
[2019-06-24] MEDS ORDERED: ATOR10TA PO (14:03)
[2019-06-24] MEDS ORDERED: FLOR250 PO (14:03)
[2019-06-24] MEDS ORDERED: CITA20TA15 PO (14:03)
[2019-06-24] MEDS ORDERED: MENT1OIN22 TP (14:03)
[2019-06-24] MEDS ORDERED: PRED10TA5 PO (14:03)
[2019-06-24] MEDS ORDERED: ACET-2619 PO (14:03)
[2019-06-24] MEDS ORDERED: FURO-570 PO (14:03)
[2019-06-24] MEDS ORDERED: DUONEB HHN (14:03)
[2019-06-24] MEDS ORDERED: ACETAMINOPHEN 325 MG TAB PO SCH (15:05)
[2019-06-24] MEDS ORDERED: ASPIRIN 81 MG TAB.CHEW PO PRN ×2 (15:05→15:15)
[2019-06-24] MEDS ORDERED: ALBUTEROL 0.083% 2.5 MG/3 ML NEBU IH PRN (15:10)
[2019-06-24] MEDS ORDERED: ONDANSETRON 4 MG/2 ML VIAL IVP PRN (15:10)
[2019-06-24] MEDS ORDERED: ACETAMINOPHEN 325 MG TAB PO PRN (15:15)
[2019-06-24] MEDS ORDERED: FUROSEMIDE 20 MG/2 ML VIAL IVP SCH (15:16)
[2019-06-24] MEDS ORDERED: DEXTROSE 50% 50 ML SYR IVP PRN (15:20)
[2019-06-24] MEDS ORDERED: INSULIN LISPRO SLIDING SCALE 100 UNITS/ML VIAL SUBQ PRN (15:20)
[2019-06-24] MEDS: BLOOD GLUCOSE MONITORING 1 DEV DEV FS SCH ×2 (15:45→20:28)
[2019-06-24] MEDS ORDERED: HYDRAGUARD CREAM TP PRN (15:45)
[2019-06-24] MEDS ORDERED: THERAHONEY WOUND DRESSING TP SCH (15:52)
[2019-06-24] MEDS: IPRATROPIUM 0.02% 0.5 MG/2.5 ML NEBU INH SCH ×2 (17:02→21:21)
[2019-06-24] MEDS: FUROSEMIDE 40 MG/4 ML VIAL IVP SCH (20:08)
[2019-06-24] MEDS: METOPROLOL 50 MG TAB PO SCH (20:10)
[2019-06-24] MEDS: ATORVASTATIN 20 MG TAB PO SCH (20:10)
[2019-06-24 22:30] LABS: CREATINE KINASE MB 3.1 ng/mL (0-3.6)
[2019-06-25] VITALS (17 sets, daily range): BP systolic 100–150; BP diastolic 59–110
[2019-06-25] MEDS ORDERED: HYDRAGUARD CREAM TP SCH (01:00)
[2019-06-25] MEDS: FUROSEMIDE 40 MG/4 ML VIAL IVP SCH ×3 (04:37→21:13)
[2019-06-25] MEDS: MORPHINE SULFATE 2 MG/ML SYR IVP PRN ×3 (05:30→23:22)
[2019-06-25 06:44] LABS: BASOPHILS % (AUTO) 0.5 % (0.0-2.0); EOSINOPHILS # (AUTO) 0.2 K/uL (0-0.4); EOSINOPHILS % (AUTO) 2.4 % (0.0-4.0); LYMPHOCYTES % (AUTO) 25.9 % (20.5-51.1); MEAN CORPUSCULAR HEMOGLOBIN 25 pg (27-31); MEAN CORPUSCULAR HGB CONC 31 g/dL (33-37); MEAN CORPUSCULAR VOLUME 81.7 fL (80-94); MONOCYTES # (AUTO) 0.7 K/uL (0.8-1.0); MONOCYTES % (AUTO) 8.8 % (1.7-9.3); NEUTROPHILS # (AUTO) 4.7 K/uL (1.8-7.7); NEUTROPHILS % (AUTO) 62.4 % (42.2-75.2); PLATELET COUNT (AUTO) 253 K/uL (140-450); RED CELL DISTRIBUTION WIDTH 21.1 % (11.6-13.7); WHITE BLOOD COUNT (AUTO) 7.6 K/uL (4.8-10.8)
[2019-06-25 07:23] LABS: MAGNESIUM 1.9 mg/dL (1.8-2.4); PHOSPHORUS 3.7 mg/dL (2.5-4.9)
[2019-06-25] MEDS: BLOOD GLUCOSE MONITORING 1 DEV DEV FS SCH ×4 (07:29→21:14)
[2019-06-25 07:31] LABS: ANION GAP 15.7 (8-16); CARBON DIOXIDE 26.5 mmol/L (21-32); CREATININE 1.2 mg/dL (0.6-1.3); POTASSIUM 3.2 mmol/L (3.5-5.1)
[2019-06-25] MEDS: METOPROLOL 50 MG TAB PO SCH ×2 (08:56→21:14)
[2019-06-25] MEDS: predniSONE 10 MG TAB PO SCH (08:56)
[2019-06-25] MEDS: LISINOPRIL 5 MG TAB PO SCH (08:56)
[2019-06-25] MEDS: DOCUSATE SODIUM 250 MG GELCAP PO SCH (08:56)
[2019-06-25] MEDS: ASPIRIN 81 MG TAB.CHEW PO SCH (08:56)
[2019-06-25] MEDS: CITALOPRAM 20 MG TAB PO SCH (08:58)
[2019-06-25] MEDS ORDERED: SPIRONOLACTONE 50 MG TAB PO SCH (09:00)
[2019-06-25] MEDS: THERAHONEY WOUND DRESSING TP SCH (09:00)
[2019-06-25] MEDS ORDERED: POTASSIUM CHLORIDE 20% 40 MEQ/15 ML UDC PO SCH (10:00)
[2019-06-25] MEDS: IPRATROPIUM 0.02% 0.5 MG/2.5 ML NEBU INH SCH ×4 (10:18→19:30)
[2019-06-25] MEDS ORDERED: HYDRAGUARD CREAM TP PRN (10:59)
[2019-06-25] MEDS ORDERED: PROBIOTIC SCREEN 1 EA MISC MC PRN (11:10)
[2019-06-25] MEDS: HYDRAGUARD CREAM TP SCH (13:08)
[2019-06-25 14:07] LABS: CREATINE KINASE MB 2.4 ng/mL (0-3.6)
[2019-06-25] MEDS: ATORVASTATIN 20 MG TAB PO SCH (21:14)
[2019-06-25] MEDS: MORPHINE SULFATE 4 MG/ML SYR IVP PRN (23:23)
[2019-06-26] VITALS: BP 132/80
[2019-06-26] MEDS: HYDRAGUARD CREAM TP SCH ×2 (00:26→12:38)
[2019-06-26 04:00] VITALS: BP 142/33
[2019-06-26] MEDS: FUROSEMIDE 40 MG/4 ML VIAL IVP SCH (04:36)
[2019-06-26] MEDS: BLOOD GLUCOSE MONITORING 1 DEV DEV FS SCH ×4 (06:11→21:36)
[2019-06-26 06:55] LABS: BASOPHILS # (AUTO) 0.1 K/uL (0.00-0.22); BASOPHILS % (AUTO) 0.5 % (0.0-2.0); EOSINOPHILS # (AUTO) 0.1 K/uL (0-0.4); EOSINOPHILS % (AUTO) 1.1 % (0.0-4.0); HEMATOCRIT 39.2 % (36-48); HEMOGLOBIN 11.7 g/dL (12.0-16.0); LYMPHOCYTES # (AUTO) 2.5 K/uL (2.5-16.5); LYMPHOCYTES % (AUTO) 22.5 % (20.5-51.1); MEAN CORPUSCULAR HEMOGLOBIN 25 pg (27-31); MEAN CORPUSCULAR HGB CONC 30 g/dL (33-37); MEAN CORPUSCULAR VOLUME 82.2 fL (80-94); MONOCYTES # (AUTO) 1.3 K/uL (0.8-1.0); MONOCYTES % (AUTO) 11.3 % (1.7-9.3); NEUTROPHILS # (AUTO) 7.3 K/uL (1.8-7.7); NEUTROPHILS % (AUTO) 64.6 % (42.2-75.2); PLATELET COUNT (AUTO) 315 K/uL (140-450); RED BLOOD CELL COUNT(AUTO) 4.77 MIL/uL (4.20-5.40); RED CELL DISTRIBUTION WIDTH 21.1 % (11.6-13.7); WHITE BLOOD COUNT (AUTO) 11.3 K/uL (4.8-10.8)
[2019-06-26 07:10] LABS: ANION GAP 14.1 (8-16); CARBON DIOXIDE 29.5 mmol/L (21-32); CREATININE 1.5 mg/dL (0.6-1.3); POTASSIUM 3.6 mmol/L (3.5-5.1)
[2019-06-26 07:20] LABS: MAGNESIUM 1.9 mg/dL (1.8-2.4); PHOSPHORUS 3.4 mg/dL (2.5-4.9)
[2019-06-26] MEDS: IPRATROPIUM 0.02% 0.5 MG/2.5 ML NEBU INH SCH ×4 (07:42→20:29)
[2019-06-26 08:00] VITALS: BP 138/92
[2019-06-26] MEDS: SPIRONOLACTONE 25 MG TAB PO SCH (09:47)
[2019-06-26] MEDS: CITALOPRAM 20 MG TAB PO SCH (09:47)
[2019-06-26] MEDS: ASPIRIN 81 MG TAB.CHEW PO SCH (09:47)
[2019-06-26] MEDS: DOCUSATE SODIUM 250 MG GELCAP PO SCH (09:47)
[2019-06-26] MEDS: LISINOPRIL 5 MG TAB PO SCH (09:48)
[2019-06-26] MEDS: LACTOBACILLUS RHAMNOSUS GG 1 EACH CAP PO SCH (09:48)
[2019-06-26] MEDS: predniSONE 10 MG TAB PO SCH (09:48)
[2019-06-26] MEDS: METOPROLOL 50 MG TAB PO SCH ×2 (09:49→21:32)
[2019-06-26] MEDS: MORPHINE SULFATE 4 MG/ML SYR IVP PRN ×2 (10:01→14:41)
[2019-06-26 12:00] VITALS: BP 139/91
[2019-06-26 16:00] VITALS: BP_SYST 129; BP_SYST 149; BP_DIAS 73; BP_DIAS 83
[2019-06-26 20:00] VITALS: BP 126/79
[2019-06-26] MEDS: ATORVASTATIN 20 MG TAB PO SCH (21:32)
[2019-06-27] VITALS: BP 130/76
[2019-06-27] MEDS: MORPHINE SULFATE 4 MG/ML SYR IVP PRN ×2 (00:07→06:50)
[2019-06-27] MEDS: HYDRAGUARD CREAM TP SCH ×2 (01:00→12:42)
[2019-06-27 04:00] VITALS: BP 132/87
[2019-06-27] MEDS: BLOOD GLUCOSE MONITORING 1 DEV DEV FS SCH ×4 (06:14→20:55)
[2019-06-27 06:46] LABS: BASOPHILS # (AUTO) 0.1 K/uL (0.00-0.22); BASOPHILS % (AUTO) 0.5 % (0.0-2.0); EOSINOPHILS # (AUTO) 0.2 K/uL (0-0.4); EOSINOPHILS % (AUTO) 1.8 % (0.0-4.0); HEMATOCRIT 36.9 % (36-48); HEMOGLOBIN 11.1 g/dL (12.0-16.0); LYMPHOCYTES % (AUTO) 26.1 % (20.5-51.1); MEAN CORPUSCULAR HEMOGLOBIN 25 pg (27-31); MEAN CORPUSCULAR HGB CONC 30 g/dL (33-37); MEAN CORPUSCULAR VOLUME 82.1 fL (80-94); MONOCYTES # (AUTO) 1.5 K/uL (0.8-1.0); MONOCYTES % (AUTO) 13.4 % (1.7-9.3); NEUTROPHILS # (AUTO) 6.7 K/uL (1.8-7.7); NEUTROPHILS % (AUTO) 58.2 % (42.2-75.2); PLATELET COUNT (AUTO) 300 K/uL (140-450); RED BLOOD CELL COUNT(AUTO) 4.49 MIL/uL (4.20-5.40); RED CELL DISTRIBUTION WIDTH 20.4 % (11.6-13.7); WHITE BLOOD COUNT (AUTO) 11.6 K/uL (4.8-10.8)
[2019-06-27 07:13] LABS: MAGNESIUM 1.9 mg/dL (1.8-2.4); PHOSPHORUS 3.2 mg/dL (2.5-4.9)
[2019-06-27 07:28] LABS: ANION GAP 12.4 (8-16); CARBON DIOXIDE 28.9 mmol/L (21-32); CREATININE 1.2 mg/dL (0.6-1.3); POTASSIUM 4.3 mmol/L (3.5-5.1)
[2019-06-27] MEDS: IPRATROPIUM 0.02% 0.5 MG/2.5 ML NEBU INH SCH ×4 (07:42→19:50)
[2019-06-27 08:00] VITALS: BP 148/108
[2019-06-27] MEDS: LISINOPRIL 5 MG TAB PO SCH (08:38)
[2019-06-27] MEDS: METOPROLOL 50 MG TAB PO SCH ×2 (08:38→20:56)
[2019-06-27] MEDS: LACTOBACILLUS RHAMNOSUS GG 1 EACH CAP PO SCH (08:38)
[2019-06-27] MEDS: ASPIRIN 81 MG TAB.CHEW PO SCH (08:38)
[2019-06-27] MEDS: SPIRONOLACTONE 25 MG TAB PO SCH (08:38)
[2019-06-27] MEDS: ASCORBIC ACID 500 MG TAB PO SCH (08:39)
[2019-06-27] MEDS: predniSONE 10 MG TAB PO SCH (08:39)
[2019-06-27] MEDS: CITALOPRAM 20 MG TAB PO SCH (08:39)
[2019-06-27] MEDS: DOCUSATE SODIUM 250 MG GELCAP PO SCH (08:39)
[2019-06-27 12:00] VITALS: BP_SYST 112; BP_SYST 142; BP_DIAS 60; BP_DIAS 78
[2019-06-27] MEDS: THERAHONEY WOUND DRESSING TP SCH (12:42)
[2019-06-27 16:00] VITALS: BP 100/60
[2019-06-27 20:00] VITALS: BP 142/70
[2019-06-27] MEDS: ATORVASTATIN 20 MG TAB PO SCH (20:55)
[2019-06-28] VITALS: BP 128/75
[2019-06-28] MEDS: HYDRAGUARD CREAM TP SCH ×2 (01:38→13:08)
[2019-06-28 04:00] VITALS: BP 151/77
[2019-06-28] MEDS: BLOOD GLUCOSE MONITORING 1 DEV DEV FS SCH ×4 (05:54→21:05)
[2019-06-28 07:29] LABS: BASOPHILS # (AUTO) 0.1 K/uL (0.00-0.22); BASOPHILS % (AUTO) 0.7 % (0.0-2.0); EOSINOPHILS # (AUTO) 0.4 K/uL (0-0.4); EOSINOPHILS % (AUTO) 3.4 % (0.0-4.0); HEMATOCRIT 36.5 % (36-48); HEMOGLOBIN 11.2 g/dL (12.0-16.0); LYMPHOCYTES # (AUTO) 2.9 K/uL (2.5-16.5); LYMPHOCYTES % (AUTO) 26.7 % (20.5-51.1); MEAN CORPUSCULAR HEMOGLOBIN 25 pg (27-31); MEAN CORPUSCULAR HGB CONC 31 g/dL (33-37); MEAN CORPUSCULAR VOLUME 82.8 fL (80-94); MONOCYTES # (AUTO) 1.2 K/uL (0.8-1.0); MONOCYTES % (AUTO) 11.5 % (1.7-9.3); NEUTROPHILS # (AUTO) 6.2 K/uL (1.8-7.7); NEUTROPHILS % (AUTO) 57.7 % (42.2-75.2); PLATELET COUNT (AUTO) 299 K/uL (140-450); RED BLOOD CELL COUNT(AUTO) 4.41 MIL/uL (4.20-5.40); RED CELL DISTRIBUTION WIDTH 20.7 % (11.6-13.7); WHITE BLOOD COUNT (AUTO) 10.7 K/uL (4.8-10.8)
[2019-06-28 07:41] LABS: ANION GAP 10.2 (8-16); CARBON DIOXIDE 31.1 mmol/L (21-32); CREATININE 1.2 mg/dL (0.6-1.3); POTASSIUM 4.3 mmol/L (3.5-5.1)
[2019-06-28 07:44] LABS: MAGNESIUM 2.1 mg/dL (1.8-2.4); PHOSPHORUS 2.9 mg/dL (2.5-4.9)
[2019-06-28 08:05] VITALS: BP 133/100
[2019-06-28] MEDS: CITALOPRAM 20 MG TAB PO SCH (09:08)
[2019-06-28] MEDS: LISINOPRIL 5 MG TAB PO SCH (09:09)
[2019-06-28] MEDS: ASCORBIC ACID 500 MG TAB PO SCH (09:09)
[2019-06-28] MEDS: LACTOBACILLUS RHAMNOSUS GG 1 EACH CAP PO SCH (09:09)
[2019-06-28] MEDS: FUROSEMIDE 40 MG TAB PO SCH (09:10)
[2019-06-28] MEDS: DOCUSATE SODIUM 250 MG GELCAP PO SCH (09:10)
[2019-06-28] MEDS: METOPROLOL 50 MG TAB PO SCH ×2 (09:10→21:06)
[2019-06-28] MEDS: ASPIRIN 81 MG TAB.CHEW PO SCH (09:11)
[2019-06-28] MEDS: MORPHINE SULFATE 2 MG/ML SYR IVP PRN (09:11)
[2019-06-28] MEDS: SPIRONOLACTONE 25 MG TAB PO SCH (09:16)
[2019-06-28] MEDS: predniSONE 10 MG TAB PO SCH (09:32)
[2019-06-28] MEDS: IPRATROPIUM 0.02% 0.5 MG/2.5 ML NEBU INH SCH ×4 (09:35→19:30)
[2019-06-28 12:00] VITALS: BP 119/95
[2019-06-28] MEDS ORDERED: SULFAMETH/TRIMETH DS 800/160MG 1 TAB PO SCH (13:33)
[2019-06-28] MEDS ORDERED: SULF1TAB12 PO (13:34)
[2019-06-28 16:00] VITALS: BP 112/86
[2019-06-28] MEDS ORDERED: DIGOXIN 0.25 MG/ML AMP IV SCH ×2 (18:00→23:00)
[2019-06-28] MEDS ORDERED: DIGOXIN 0.25 MG/ML AMP IV ONE (19:40)
[2019-06-28 20:00] VITALS: BP 111/79
[2019-06-28] MEDS: SULFAMETH/TRIMETH DS 800/160MG 1 TAB PO SCH (21:05)
[2019-06-28] MEDS: ATORVASTATIN 20 MG TAB PO SCH (21:06)
[2019-06-29] VITALS: BP 135/103
[2019-06-29] MEDS: HYDRAGUARD CREAM TP SCH ×2 (01:12→13:00)
[2019-06-29] MEDS ORDERED: DILTIAZEM 25 MG/5 ML VIAL IVP SCH (01:30)
[2019-06-29 04:00] VITALS: BP 137/97
[2019-06-29] MEDS: BLOOD GLUCOSE MONITORING 1 DEV DEV FS SCH ×3 (07:03→16:30)
[2019-06-29] MEDS: IPRATROPIUM 0.02% 0.5 MG/2.5 ML NEBU INH SCH ×3 (07:59→15:56)
[2019-06-29 08:00] VITALS: BP 131/89
[2019-06-29 08:10] LABS: BASOPHILS % (AUTO) 0.5 % (0.0-2.0); EOSINOPHILS # (AUTO) 0.4 K/uL (0-0.4); EOSINOPHILS % (AUTO) 3.9 % (0.0-4.0); HEMATOCRIT 38.5 % (36-48); HEMOGLOBIN 11.6 g/dL (12.0-16.0); LYMPHOCYTES # (AUTO) 2.9 K/uL (2.5-16.5); LYMPHOCYTES % (AUTO) 31.5 % (20.5-51.1); MEAN CORPUSCULAR HEMOGLOBIN 25 pg (27-31); MEAN CORPUSCULAR HGB CONC 30 g/dL (33-37); MONOCYTES # (AUTO) 0.8 K/uL (0.8-1.0); MONOCYTES % (AUTO) 8.9 % (1.7-9.3); NEUTROPHILS # (AUTO) 5.1 K/uL (1.8-7.7); NEUTROPHILS % (AUTO) 55.2 % (42.2-75.2); PLATELET COUNT (AUTO) 282 K/uL (140-450); RED BLOOD CELL COUNT(AUTO) 4.69 MIL/uL (4.20-5.40); RED CELL DISTRIBUTION WIDTH 20.1 % (11.6-13.7); WHITE BLOOD COUNT (AUTO) 9.3 K/uL (4.8-10.8)
[2019-06-29] MEDS: THERAHONEY WOUND DRESSING TP SCH (09:00)
[2019-06-29 09:25] LABS: MAGNESIUM 2.1 mg/dL (1.8-2.4); PHOSPHORUS 2.7 mg/dL (2.5-4.9)
[2019-06-29] MEDS: SPIRONOLACTONE 25 MG TAB PO SCH (09:39)
[2019-06-29] MEDS: DOCUSATE SODIUM 250 MG GELCAP PO SCH (09:39)
[2019-06-29] MEDS: SULFAMETH/TRIMETH DS 800/160MG 1 TAB PO SCH (09:39)
[2019-06-29] MEDS: LACTOBACILLUS RHAMNOSUS GG 1 EACH CAP PO SCH (09:39)
[2019-06-29] MEDS: FUROSEMIDE 40 MG TAB PO SCH (09:40)
[2019-06-29] MEDS: ASCORBIC ACID 500 MG TAB PO SCH (09:40)
[2019-06-29] MEDS: ASPIRIN 81 MG TAB.CHEW PO SCH (09:40)
[2019-06-29] MEDS: LISINOPRIL 5 MG TAB PO SCH (09:40)
[2019-06-29] MEDS: CITALOPRAM 20 MG TAB PO SCH (09:41)
[2019-06-29] MEDS: MORPHINE SULFATE 2 MG/ML SYR IVP PRN (09:41)
[2019-06-29] MEDS: METOPROLOL 50 MG TAB PO SCH (09:41)
[2019-06-29 10:08] LABS: CREATININE 1.1 mg/dL (0.6-1.3); POTASSIUM 4.7 mmol/L (3.5-5.1)
[2019-06-29 10:25] LABS: ANION GAP 11.6 (8-16); CARBON DIOXIDE 29.1 mmol/L (21-32)
[2019-06-29 12:00] VITALS: BP 143/82
[2019-06-29 16:00] VITALS: BP 135/84
== END 2019-06-29 19:20 | disposition home health service (06) | DRG 194 ==
LOC: EDBD 11:36 → MED 11:36 → MERGE 14:36 → MIC 14:36 → MTU 06-26 06:00
PROVIDERS: ADMIT Internal Medicine Pulmonary Disease; ATTEND Internal Medicine Pulmonary Disease
PROC: 5A09357 Assistance with Respiratory Ventilation, Less than 24 Consecutive Hours, Continuous Positive Airway Pressure (ICD-10-PCS; principal; 2019-06-24)
DX: I11.0 Hypertensive heart disease with heart failure (principal); I21.A1 Myocardial infarction type 2; J96.01 Acute respiratory failure with hypoxia; E86.0 Dehydration; I48.0 Paroxysmal atrial fibrillation; E11.9 Type 2 diabetes mellitus without complications; E78.5 Hyperlipidemia, unspecified; F32.9 Major depressive disorder, single episode, unspecified; F41.9 Anxiety disorder, unspecified; I50.41 Acute combined systolic (congestive) and diastolic (congestive) heart failure; J96.21 Acute and chronic respiratory failure with hypoxia; R59.0 Localized enlarged lymph nodes; Z79.899 Other long term (current) drug therapy; Z79.82 Long term (current) use of aspirin
CPT/HCPCS: 36415; 36600; 71045; 71275; 80048; 80053; 81001; 82550; 82553; 82803; 82948; 83036; 83605; 83690; 83735; 83880; 84100; 84484; 85025; 85610; 87040; 87070; 87081; 87086; 87186; 87205; 89220; 92610; 93005; 94640; 94660; 96374; 99291; J0696; J1160; J1644; J1815; J1940; J2270; J7030; J7060; J7512; J7644; Q0092; Q9967

== ENCOUNTER 2019-07-27 11:21 | Inpatient (IN) | payer OTHER ==
[2019-07-27] VITALS (28 sets, daily range): BP systolic 84–130; BP diastolic 25–93
[~2019-07-27] VITALS: Ht 162.6 cm; Wt 73.5 kg
[~2019-07-27 11:21] MED LIST changes: +ASPI-1718 PO; +ATOR10TA PO; +ATRN INH; +DUONEB HHN; +FURO-570 PO; +LISI5TAB18 PO; +MENT1OIN22 TP; -METO-50 PO; +METO100T14 PO; +POTA20TE15 PO; -PRED10TA5 PO; +SPIR50TA PO; +SULF1TAB12 PO
--- NOTE | 2019-07-27 11:21 | NUR ---
Patient BIBA ALS, transferred to bed 10. RN evaluating patient at bedside.
--- NOTE | 2019-07-27 11:28 | NUR ---
PT BIB AMBULANCE FROM HOME, FOUND PT ALTERED AND CALLED 911. PT IS NON VERBAL AND HAS A HX OF DM, STROKE, HTN. SKIN IS PINK/WARM/DRY; PT WAS A WOUND ON HER RIGHT LEG. PT IS UNABLE TO AMBULATE AND IS INCONTINENT. PT HAS TACHYPENA AND RHONCHI IS HEARD BILATERALLY UPON INSPIRATION AND EXPIRATION, PT ON 3L O2 VIA NASAL CANULA; HR IS ELEVATED, PT HR IS 154. PT TEMPERATURE IS ELEVATED. PATIENT POSITIONED FOR COMFORT; HOB ELEVATED; BEDRAILS UP X2; BED DOWN. ER MD MADE AWARE OF PT STATUS. PT UNCOMPLIANT WITH MEDICATION. ANDRES
--- NOTE | 2019-07-27 11:39 | NUR ---
Dr. Velasco is evaluating the patient at bedside.
[2019-07-27] MEDS ORDERED: PENT400T67 PO (11:50)
[2019-07-27] MEDS ORDERED: VANCOMYCIN 1,000 MG in DEXTROSE 5% 250 ML IV ONE (11:50)
[2019-07-27] MEDS ORDERED: ASCO500T45 PO (11:50)
[2019-07-27] MEDS ORDERED: NACL 0.9% 1,000 ML IV ONE ×2 (11:50→12:55)
[2019-07-27] MEDS ORDERED: ATOR20TA PO (11:50)
[2019-07-27] MEDS ORDERED: ACETAMINOPHEN 650 MG SUPP RC ONE (11:50)
[2019-07-27] MEDS ORDERED: PIPERACILLIN/TAZOBACTAM 3.375 GM in DEXTROSE 5% 50 ML IV ONE (11:50)
[2019-07-27] MEDS ORDERED: LISI40TA12 PO (11:50)
[2019-07-27] MEDS ORDERED: ATEN100T6 PO (11:50)
[2019-07-27] MEDS ORDERED: AMIO200T5 PO (11:50)
[2019-07-27] MEDS ORDERED: APIX5TAB PO (11:50)
[2019-07-27] MEDS ORDERED: FURO-570 PO (11:50)
[2019-07-27] MEDS ORDERED: GABA300C PO (11:50)
[2019-07-27] MEDS ORDERED: METO25TA PO (11:50)
[2019-07-27] MEDS ORDERED: PIPERACILLIN/TAZOBACTAM 3.375 GM VIAL IV ONE (11:52)
[2019-07-27] MEDS ORDERED: VANCOMYCIN 1,000 MG VIAL ONE (11:54)
[2019-07-27] MEDS ORDERED: DILTIAZEM 25 MG/5 ML VIAL IVP ONE (11:55)
[2019-07-27] MEDS ORDERED: DILTIAZEM 125 MG in DEXTROSE 5% 100 ML IV ONE (12:00)
[2019-07-27] MEDS ORDERED: DILTIAZEM 125 MG/25 ML VIAL IV ONE (12:30)
[2019-07-27 12:36] LABS: APPEARANCE,URINE SL CLOUDY (CLEAR); BILIRUBIN,URINE 1+ (NEGATIVE); BLOOD, URINE 1+ (NEGATIVE); COLOR,URINE YELLOW (YELLOW); LEUKOCYTE ESTERASE ,URINE NEGATIVE (NEGATIVE); NITRITE, URINE NEGATIVE (NEGATIVE); PH,URINE 5.5 (5.0-9.0); UGLUCOSE NEGATIVE (NEGATIVE)
[2019-07-27 12:38] LABS: HEMATOCRIT 35.2 % (36-48); HEMOGLOBIN 10.3 g/dL (12.0-16.0); MEAN CORPUSCULAR HEMOGLOBIN 25 pg (27-31); MEAN CORPUSCULAR HGB CONC 29 g/dL (33-37); MEAN CORPUSCULAR VOLUME 85.6 fL (80-94); PLATELET COUNT (AUTO) 146 K/uL (140-450); RED BLOOD CELL COUNT(AUTO) 4.11 MIL/uL (4.20-5.40); RED CELL DISTRIBUTION WIDTH 22.6 % (11.6-13.7); WHITE BLOOD COUNT (AUTO) 17.1 K/uL (4.8-10.8)
--- NOTE | 2019-07-27 12:41 | NUR ---
sonogram technician at bedside.
[2019-07-27 12:46] LABS: ALBUMIN 3.2 g/dL (3.4-5.0); ANION GAP 20.4 (8-16); CARBON DIOXIDE 19.2 mmol/L (21-32); CREATININE 2.2 mg/dL (0.6-1.3); POTASSIUM 4.6 mmol/L (3.5-5.1); TOTAL BILIRUBIN 2.3 mg/dL (0.0-1.0)
[2019-07-27 12:49] LABS: WBC,URINE 20-60 /HPF (0-5)
[2019-07-27 12:50] LABS: URINE AMORPHOUS URATE 1+ /HPF (None Seen)
[2019-07-27 12:52] LABS: PROTHROMBIN TIME 14.3 secs (10.8-13.4)
[2019-07-27 12:55] LABS: LYMPHOCYTES % (MANUAL) 8 % (20-46); MONOCYTES % (MANUAL) 5 % (5-12)
[2019-07-27 13:07] LABS: CREATINE KINASE MB 5.2 ng/mL (0-3.6)
[2019-07-27] MEDS ORDERED: ETOMIDATE 20 MG/10 ML VIAL IVP ONE (13:50)
[2019-07-27] MEDS ORDERED: ROCURONIUM 50 MG/5 ML VIAL IV ONE (13:50)
--- NOTE | 2019-07-27 13:58 | NUR ---
Dr. Velasco evaluating patient at bedside.
--- NOTE | 2019-07-27 14:00 | NUR ---
Dr. Velasco, RN and RT at bedside for endotracheal intubation.
--- NOTE | 2019-07-27 14:04 | NUR ---
JAKE FREEDMAN INSTUBATED PT WITH ET TUBE NUMBER 7.5, 24 CM AT 1407. ETIMDATE 20 MG ADMINISTERED VIA IVP AT 1404 AND ROCONIUM 70 MG ADMINISTERED VIA IVP AT 1405. Addendum: 07/27/19 at 1429 by RetentionGrid ET TUCE WITH VENT; F1O2 50, VT 450 ML, R 16, FLOW 35,PEEP 5 CMH2O.
--- NOTE | 2019-07-27 14:11 | NUR ---
technical clerk at bedside for post intubation CXR.
[2019-07-27] MEDS ORDERED: PROPOFOL 1000 MG/100 ML PREMIX 100 ML IV ONE (14:15)
--- NOTE | 2019-07-27 14:15 | NUR ---
CARDIZEM TITRATED TO 15MG. HR 155. BP 123/86. O2 SAT 96% VIA NC.
--- NOTE | 2019-07-27 14:21 | NUR ---
XRAY AT BEDSIDE.
--- NOTE | 2019-07-27 15:18 | NUR ---
CARDIZEM TITRATED TO 20MG/HOUR. HR 148. BP 168/108. TEMP 100.5 RECTAL
--- NOTE | 2019-07-27 15:18 | NUR ---
Pt returned from CT and placed in bed 10.
--- NOTE | 2019-07-27 15:18 | NUR ---
Heather dunlap in EDM - 07/27/19 at 1524 by NEETU CARDIZEM TITRATED TO 20MG. HR 148. BP 168/108. TEMP 100.5 RECTAL
--- NOTE | 2019-07-27 16:02 | NUR ---
DR FREEDMAN DO CENTAL LINE LEFT GROIN.
[2019-07-27] MEDS ORDERED: HEPARIN PER PHARMACY MC PRN (16:20)
[2019-07-27] MEDS ORDERED: VANCOMYCIN PER PHARMACY MC PRN (16:20)
[2019-07-27] MEDS ORDERED: LORazepam 2 MG/ML VIAL IVP PRN (16:20)
[2019-07-27] MEDS ORDERED: ONDANSETRON 4 MG/2 ML VIAL IVP PRN (16:20)
--- NOTE | 2019-07-27 16:50 | NUR ---
BP 96/68, HOLD CARTIZEM
--- NOTE | 2019-07-27 17:20 | NUR ---
Patient will be admitted to care of DR VALENZUELA. Admited to ICU. Will go to room 7. Belongings list completed. Report to NICCI LEWIS.
--- NOTE | 2019-07-27 17:39 | NUR ---
RECEIVED PATIENT FROM EXECUTIVE DIRECTOR SHELTERED WORKSHOPJOSE MARTIN FOR CONTINUITY OF CARE. PATIENT IS SEDATED, UNABLE TO MAKE NEEDS KNOWN OR FOLLOW COMMANDS. PATIENT SKIN IS WARM, DRY, AFEBRILE, NOT INTACT. SHE HAS CENTRAL LINE TO R FEMORAL. PATIENT HAS OPEN WOUND TO R. LOWER LEG. PATIENT IS ETT TO VENT, BREATHING IS EVEN AND UNLABORED. PATIENT IS ST ON MONITOR, FLACC 0. SHE HAS MOLINA CATHETER IN PLACE. NO SIGNS OF DISTRESS, WILL CONTINUE TO MONITOR
[2019-07-27] MEDS: NACL 0.45% 1,000 ML IV SCH (17:41)
[2019-07-27] MEDS: METOPROLOL 25 MG TAB PO SCH (17:42)
--- NOTE | 2019-07-27 17:47 | NUR ---
DR. VALENZUELA IS HERE TO SEE AND EXAMINE PATIENTS, UPDATED ON PATIENT'S CONDITION. WILL FOLLOW UP ON ANY ORDERS.
[2019-07-27] MEDS ORDERED: THERAHONEY WOUND DRESSING TP SCH (17:50)
--- NOTE | 2019-07-27 17:55 | NUR ---
NOTIFIED DR. VALENZUELA ON PRIOR ECHO RESULTS 05-12-19. HE STATED TO CANCEL THE ECHO FOR NOW UNTIL DR. LEWIS, Y RECOMMENDATIONS.
[2019-07-27] MEDS: AZITHROMYCIN 500 MG in DEXTROSE 5% 250 ML IV SCH (18:09)
[2019-07-27] MEDS: HYDROCORTISONE NA SUCC 100 MG/2 ML VIAL IV SCH (18:09)
[2019-07-27] MEDS: hePARIN / DEXT 5% PREMIX 250 ML IV SCH (18:15)
[2019-07-27] MEDS: ASCORBIC ACID INJ 1,500 MG in NACL 0.9% 100 ML IV SCH (18:37)
[2019-07-27] MEDS ORDERED: PHENYLEPHRINE 20 MG in NACL 0.9% 250 ML IV PRN (18:55)
--- NOTE | 2019-07-27 18:55 | NUR ---
PATIENT'S HR DECREASED FROM 145 TO 97, HELD AMIODARONE DRIP
[2019-07-27] MEDS ORDERED: AMIODARONE 150 MG in DEXTROSE 5% 100 ML IV SCH (19:00)
--- NOTE | 2019-07-27 19:06 | NUR ---
ENDORSED CONTINUITY OF CARE TO COMPOSITE WORKER MARK. JOSHUA
--- NOTE | 2019-07-27 19:15 | NUR ---
RECEIVED REPORT FROM AM NURSE. PT AT BED SEDATED RASS -3, ETT TO VENT, BREATHING REGULARLY ON VENT SETTINGS AC/VC, FIO2 50%, TV 450 FLOW 35 PEEP 5, HEART RATE IRREGULAR, SINUS ARRHYTHMIA, S1S2 PRESENT, CAP REFILL <3S, PULSES 2+ BILATERAL UPPER AND LOWER EXTREMITIES, ABDOMEN, SOFT, ROUND, NONDISTENDED, NONTENDER, OG TUBE INSERTED, PLACEMENT CHECKED, PATENT, FLUSHED, BLADDER, SOFT, ROUND, NONDISTENDED, NONTENDER, FC IN PLACE, DRAINING CLEAR YELLOW URINE, SKIN WARM, DRY, NONINTACT, PT HAS RIGHT LOWER LEG OPEN WOUND, DRESSING IN PLACE, DRY AND INTACT, PT HAS RIGHT EJ PERIPHERAL IV AT 18 GAUGE, SALINE LOCK, LEFT FEMORAL CENTRAL LINE, TRIPLE LUMEN, RUNNING 1/2 NS AT 100 ML/HR, AND PROPOFOL AT 5 MCG/KG/MIN, DRY WEIGHT 65 KG, HOB 30 DEGREES, SIDE RAILS UP X2, BED AT LOWEST POSITION.
[2019-07-27] MEDS ORDERED: AMIODARONE 450 MG in DEXTROSE 5% 250 ML IV SCH (19:30)
[2019-07-27] MEDS: IPRATROPIUM 0.02% 0.5 MG/2.5 ML NEBU IH SCH (19:39)
--- NOTE | 2019-07-27 19:40 | NUR ---
DR. KENNEY AT BEDSIDE, RECOMMENDED TO START PT ON WATER FLUSH 200 ML Q3H.
[2019-07-27] MEDS: THIAMINE 200 MG in NACL 0.9% 50 ML IV SCH (21:06)
[2019-07-27] MEDS: PIPERACILLIN/TAZOBACTAM 2.25 GM in DEXTROSE 5% 50 ML IV SCH (21:06)
[2019-07-27] MEDS: ATORVASTATIN 20 MG TAB PO SCH (22:18)
--- NOTE | 2019-07-27 22:30 | NUR ---
PAGED DR. ALVAREZ FOR NEW ORDERS, AWAITING REPLY.
--- NOTE | 2019-07-27 22:38 | NUR ---
PT HAD A RUN OF V TACH. CONVERTED TO SINUS ARRYTHMIA
--- NOTE | 2019-07-27 22:45 | NUR ---
PAGED DR. ALVAREZ, STILL NO REPLY FROM .
--- NOTE | 2019-07-27 23:38 | NUR ---
CALLED DR. ALVAREZ, THIRD ATTEMPT FOR NEW ORDERS. FILM SPLICER FROM [facility] CALLED DR. ALVAREZ WITH NO ANSWER. RECEIVED INFORMATION THAT MD WILL BE PAGED AGAIN.
[2019-07-28] VITALS (53 sets, daily range): BP systolic 89–168; BP diastolic 40–86
--- NOTE | 2019-07-28 00:04 | NUR ---
PHONE CALL TO DR ALVAREZ AGAIN.AWAITING REPLY
--- NOTE | 2019-07-28 00:30 | NUR ---
PHONE CALL TO DR ALVAREZ AGAIN. AWAITING REPLY FIFTH ATTEMPT
--- NOTE | 2019-07-28 00:59 | NUR ---
SIXTH ATTEMPT TO PAGE DR. ALVAREZ FOR NEW ORDERS, AWAITING CALL
[2019-07-28] MEDS: IPRATROPIUM 0.02% 0.5 MG/2.5 ML NEBU IH SCH ×4 (01:00→19:27)
[2019-07-28] MEDS: ASCORBIC ACID INJ 1,500 MG in NACL 0.9% 100 ML IV SCH ×5 (01:23→23:07)
[2019-07-28] MEDS: HYDROCORTISONE NA SUCC 100 MG/2 ML VIAL IV SCH ×5 (01:24→23:07)
[2019-07-28] MEDS ORDERED: PROPOFOL 1000 MG/100 ML PREMIX 100 ML IV PRN (01:25)
--- NOTE | 2019-07-28 03:41 | NUR ---
PT HAD A RUN OF V.TACH. EKG RECORDED
--- NOTE | 2019-07-28 04:18 | NUR ---
phone call from dr astorga; notified that nurse already spoke with dr vergara.also notified that pt had short runs of v tach, no new orders
[2019-07-28] MEDS: METOPROLOL 25 MG TAB PO SCH ×5 (05:09→23:08)
[2019-07-28] MEDS: PIPERACILLIN/TAZOBACTAM 2.25 GM in DEXTROSE 5% 50 ML IV SCH ×3 (05:22→20:56)
--- NOTE | 2019-07-28 06:45 | NUR ---
rec'd pt on carescape vent settings ac 16 vt 400 peep 5 fio2 50% alarms on and audible and ambu bag at hob vent is plugged into red outlet, i\l tx given with atrovent 0.5mg with no adverse reaction post tx, b\s are diminished bilaterally, sxn pt small amt of white secretions, pt is orally intubated with 7.5 et tube secured with anchor fast at 24 cm pt is sleeping with no signs of distress noted
[2019-07-28 06:56] LABS: HEMATOCRIT 36.2 % (36-48); HEMOGLOBIN 10.5 g/dL (12.0-16.0); MEAN CORPUSCULAR HEMOGLOBIN 25 pg (27-31); MEAN CORPUSCULAR HGB CONC 29 g/dL (33-37); MEAN CORPUSCULAR VOLUME 86.6 fL (80-94); PLATELET COUNT (AUTO) 136 K/uL (140-450); RED BLOOD CELL COUNT(AUTO) 4.18 MIL/uL (4.20-5.40); RED CELL DISTRIBUTION WIDTH 23.6 % (11.6-13.7); WHITE BLOOD COUNT (AUTO) 15.1 K/uL (4.8-10.8)
--- NOTE | 2019-07-28 07:10 | NUR ---
RECEIVED BEDSIDE REPORT FROM MARCY SPORTS TRAINER RN, FOR CONTINUITY OF CARE. PATIENT IS SEDATED WITH PROPOFOL AT 15MCG/KG/HR, PATIENT'S DRY WEIGHT IS 65KG, RASS OF -3. SKIN IS WARM, DRY, AFEBRILE, NOT INTACT, SHE HAS A OPEN WOUND TO R. LOWER LEG. PATIENT IS ETT TO VENT, SETTINGS ARE AC/VC MODE, RATE 16, TV 400, PEEP 5. BREATHING IS EVEN AND UNLABORED. SHE IS A. FIB ON MONITOR, FLACC 0. BP STABLE. SHE HAS OGT IN PLACE TO WATER FLUSH. PATIENT HAS MOLINA CATHETER IN PLACE TO CLOUDY YELLOW URINE. HOB IS 30 DEGREES, SIDE RAILS UP 3X, BED LOCKED IN LOW POSITION. NO SIGNS OF DISTRESS, WILL CONTINUE TO MONITOR.
[2019-07-28 07:46] LABS: BASOPHILS % (MANUAL) 0 % (0-2); EOSINOPHILS % (MANUAL) 0 % (0-4); LYMPHOCYTES % (MANUAL) 10 % (20-46); MONOCYTES % (MANUAL) 7 % (5-12)
[2019-07-28] MEDS: NACL 0.45% 1,000 ML IV SCH ×2 (08:09→12:19)
[2019-07-28] MEDS: AMIODARONE 200 MG TAB PO SCH (08:16)
[2019-07-28] MEDS: THIAMINE 200 MG in NACL 0.9% 50 ML IV SCH ×2 (08:16→20:55)
[2019-07-28] MEDS: PANTOPRAZOLE 40 MG INJ VIAL IVP SCH (08:16)
--- NOTE | 2019-07-28 08:30 | NUR ---
SCHEDULED MEDS ADMINISTERED, PATIENT TOLERATED WELL. WILL CONTINUE TO MONITOR
[2019-07-28] MEDS ORDERED: ASCORBIC ACID 500 MG TAB PO SCH (09:00)
--- NOTE | 2019-07-28 09:40 | NUR ---
PATIENT SELF EXTUBATED, RT AT BEDSIDE, PLACED PATIENT ON NON-REBREATHER AT 15LPM, RR IS 23, BREATHING IS UNLABORED, WILL CONTINUE TO MONITOR
--- NOTE | 2019-07-28 09:43 | NUR ---
CALLED TO ICU 7 PT SELF EXTUBATED AND PLACED ON NRB AT 15L O2 SAT 100% and rr 20 notified
--- NOTE | 2019-07-28 09:45 | NUR ---
PT SELF EXTUBATED HERSELF, CALLED RT IMMEDIATELY. PT O2 SATS 95% AFTER PT EXTUBATED HERSELF. PAGED .
--- NOTE | 2019-07-28 09:48 | NUR ---
DR. DUMAS CALLED, AWARE THAT PATIENT SELF EXTUBATED, UPDATED ON PATIENT'S CONDITION. STATES OK TO KEEP PATIENT ON NON-REBREATHER, IF PATIENT STARTS TO GET TACHYPNEIC AND IN DISTRESS, THEN PATIENT MAY NEED TO GET REINTUBATED.
[2019-07-28 09:50] LABS: ANION GAP 13.9 (8-16); CARBON DIOXIDE 20.1 mmol/L (21-32)
[2019-07-28 09:51] LABS: ALBUMIN 2.5 g/dL (3.4-5.0); TOTAL BILIRUBIN 1.4 mg/dL (0.0-1.0)
[2019-07-28] MEDS: MORPHINE SULFATE 4 MG/ML SYR IVP PRN ×3 (10:44→23:26)
--- NOTE | 2019-07-28 10:57 | NUR ---
PLACED PT ON 3LNC O2 SAT OF98% VENT IS ON STAND BY
--- NOTE | 2019-07-28 11:58 | NUR ---
PATIENT CLEANED AND REPOSITIONED, NO SIGNS OF DISTRESS NOTED
--- NOTE | 2019-07-28 14:59 | NUR ---
PATIENT TURNED AND REPOSITIONED, TOLERATED WELL.
--- NOTE | 2019-07-28 17:00 | NUR ---
DR. DUMAS IS HERE TO SEE AND EXAMINE PATIENT, UPDATED ON PATIENT'S CONDITION. STATES OKAY TO START PATIENT ON CARDIAC DIET, CONTINUE HEPARIN DRIP AND IVF.
[2019-07-28] MEDS: AZITHROMYCIN 500 MG in DEXTROSE 5% 250 ML IV SCH (17:26)
--- NOTE | 2019-07-28 18:08 | NUR ---
DR. LEWIS IS HERE TO SEE AND EXAMINE PATIENT, UPDATED ON PATIENT'S CONDITION.
--- NOTE | 2019-07-28 19:25 | NUR ---
DR. KAY IS HERE TO SEE AND EXAMINE PATIENT, UPDATED ON PATIENT'S CONDITION. WILL FOLLOW UP ON ANY ORDERS.
[2019-07-28] MEDS: DEXTROSE 5% 1,000 ML IV SCH (19:53)
[2019-07-28] MEDS: ATORVASTATIN 20 MG TAB PO SCH (20:55)
--- NOTE | 2019-07-28 21:00 | NUR ---
SCHEDULED MEDS ADMINISTERED, PATIENT TOLERATED WELL.
--- NOTE | 2019-07-28 22:38 | NUR ---
PATIENT TURNED AND REPOSITIONED, NO SIGNS OF DISTRESS NOTED
--- NOTE | 2019-07-28 23:01 | NUR ---
PATIENT IS YELLING, COMPLAINING OF PAIN TO R LOWER LEG. WILL GIVE PRN MORPHINE 4MG
--- NOTE | 2019-07-28 23:55 | NUR ---
REPORT RECEIVED FROM JOSHUA GRAJEDA FOR CONTINUITY OF CARE.
[2019-07-29] VITALS (13 sets, daily range): BP systolic 84–113; BP diastolic 32–83
--- NOTE | 2019-07-29 00:30 | NUR ---
HEPARIN DRIP REDUCED TO 800 UNITS/HR PER HEPARIN PROTOCOL
--- NOTE | 2019-07-29 02:00 | NUR ---
AWAKE IN BETWEEN; V/S MONITORED CLOSELY; NOTED WITH OCCASIONAL PAC'S.
[2019-07-29] MEDS: IPRATROPIUM 0.02% 0.5 MG/2.5 ML NEBU IH SCH ×4 (02:10→18:37)
[2019-07-29] MEDS: hePARIN / DEXT 5% PREMIX 250 ML IV SCH (03:44)
--- NOTE | 2019-07-29 04:00 | NUR ---
MORNING BED BATH DONE.
--- NOTE | 2019-07-29 05:30 | NUR ---
TOLERATED TO DRINK ORALLY 1 CUP ORANGE JUICE WITH HER MORNING ORAL MEDICATION.
[2019-07-29] MEDS: PIPERACILLIN/TAZOBACTAM 2.25 GM in DEXTROSE 5% 50 ML IV SCH ×3 (05:39→21:17)
[2019-07-29] MEDS: HYDROCORTISONE NA SUCC 100 MG/2 ML VIAL IV SCH ×2 (05:39→12:18)
[2019-07-29] MEDS: ASCORBIC ACID INJ 1,500 MG in NACL 0.9% 100 ML IV SCH ×2 (05:40→12:15)
[2019-07-29] MEDS: METOPROLOL 25 MG TAB PO SCH ×3 (05:40→17:30)
--- NOTE | 2019-07-29 07:30 | NUR ---
RECEIVED BEDSIDE REPORT FROM DAIRY ASSOCIATE RN, PT OPENS EYES SPONTANEOUSLY. ABLE TO FOLLOW SIMPLE COMMANDS BUT FALL ASLEEP QUICKLY AFTER WAKING UP PT. BEDSIDE MONITOR SHOWS SR-ST. ON O2 NC 3L/MIN. O2 SATS 99%. PT HAS CENTRAL LINE TO RIGHT FEMORAL TLC RUNNING HEPARIN @ 800 UNITS/HR AND D5 AT 60 CC/HR. PATIENT HAS MOLINA CATHETER IN PLACE TO CLOUDY YELLOW URINE AND MITTEN IN PLACE. SKIN IS WARM TO TOUCH. AFEBRILE, NOT INTACT ( SEE WOUND ASSESSMENT), HOB 30 DEGREES, SIDE RAILS UP 3X, BED IN LOW POSITION. WILL CONTINUE TO MONITOR.
--- NOTE | 2019-07-29 07:30 | NUR ---
ENDORSED TO AM SHIFT JOSHUA DALY FOR CONTINUITY OF CARE.
[2019-07-29] MEDS: MORPHINE SULFATE 4 MG/ML SYR IVP PRN ×2 (08:06→14:39)
[2019-07-29] MEDS: THIAMINE 200 MG in NACL 0.9% 50 ML IV SCH (08:06)
[2019-07-29] MEDS: FUROSEMIDE 40 MG/4 ML VIAL IVP SCH (08:06)
[2019-07-29] MEDS: AMIODARONE 200 MG TAB PO SCH ×2 (08:07→21:16)
[2019-07-29] MEDS: PANTOPRAZOLE 40 MG INJ VIAL IVP SCH (08:07)
--- NOTE | 2019-07-29 08:09 | NUR ---
PATIENT HAS BEEN SCREENED AND CATEGORIZED HIGH NUTRITION RISK. PATIENT WILL BE SEEN WITHIN 1-2 DAYS OF ADMISSION. 07/29/[address]
--- NOTE | 2019-07-29 09:00 | NUR ---
URINE IS CLOUDY. FLUSHED F/C WITH SALINE.
[2019-07-29 09:55] LABS: BASOPHILS % (AUTO) 0.3 % (0.0-2.0); HEMATOCRIT 35.3 % (36-48); HEMOGLOBIN 10.1 g/dL (12.0-16.0); MEAN CORPUSCULAR HEMOGLOBIN 25 pg (27-31); MEAN CORPUSCULAR HGB CONC 29 g/dL (33-37); MEAN CORPUSCULAR VOLUME 87.2 fL (80-94); MONOCYTES # (AUTO) 0.5 K/uL (0.8-1.0); MONOCYTES % (AUTO) 3.8 % (1.7-9.3); NEUTROPHILS # (AUTO) 12.3 K/uL (1.8-7.7); PLATELET COUNT (AUTO) 153 K/uL (140-450); RED BLOOD CELL COUNT(AUTO) 4.05 MIL/uL (4.20-5.40); RED CELL DISTRIBUTION WIDTH 23.1 % (11.6-13.7); WHITE BLOOD COUNT (AUTO) 13.9 K/uL (4.8-10.8)
--- NOTE | 2019-07-29 10:27 | NUR ---
received critical report APTT 55.1. per protocol, no change. continue heparin at 800 units/hr.
[2019-07-29 10:44] LABS: ALBUMIN 2.8 g/dL (3.4-5.0); CARBON DIOXIDE 19.9 mmol/L (21-32); CREATININE 2.9 mg/dL (0.6-1.3); POTASSIUM 4.9 mmol/L (3.5-5.1); TOTAL BILIRUBIN 0.9 mg/dL (0.0-1.0)
--- NOTE | 2019-07-29 10:46 | NUR ---
Social Work Note: SRAVANI contacted [facility] [phone] 2 times to conduct assessment. SRAVANI left voice mail. SRAVANI/SHELBY will follow up as needed. Addendum: 07/31/19 at 0915 by Donaldo ROSALES SRAVANI contacted [facility] [phone] to conduct assessment. SRAVANI left voicemail. SRAVANI will follow up. Addendum: 08/01/19 at 1358 by Donaldo ROSALES SRAVANI contacted [facility] [phone]. SRAVANI left an additional voicemail to complete screening. SRAVANI/SHELBY will follow up as needed.
[2019-07-29 11:15] LABS: LYMPHOCYTES % (AUTO) 7.1 % (20.5-51.1); NEUTROPHILS % (AUTO) 88.8 % (42.2-75.2)
[2019-07-29] MEDS: DEXTROSE 5% 1,000 ML IV SCH (12:15)
--- NOTE | 2019-07-29 12:30 | NUR ---
REPOSITION AND TURNED PT.FEED PT LUNCH TRAY (PUREE DIET) FROM KITCHEN. PT ATE ABOUT 25%, AFTER THAT PT DOES NOT WANT TO EAT.
[2019-07-29] MEDS ORDERED: VANCOMYCIN 1,000 MG in DEXTROSE 5% 250 ML IV SCH (13:00)
--- NOTE | 2019-07-29 13:01 | NUR ---
07/29/19 RD INITIAL ASSESSMENT COMPLETED PLEASE REFER TO NUTRITION ASSESSMENT UNDER CARE ACTIVITY FOR ESTIMATED NUTRITIONAL NEEDS. RD RECOMMENDATIONS: 1.RECOMMEND PUREED CARDIAC DIET PER RN WHO STATES PT IS UNABLE TO TOLERATE CURRENT MECHANICAL SOFT DIET. 2.ONCE WOUND ASSESSMENT DONE RD WILL PROVIDE APPROPRIATE RECOMMENDATIONS. 3. RD WILL F/U 2-3 DAYS; HIGH RISK. SCOOTER BAIN RD
--- NOTE | 2019-07-29 13:30 | NUR ---
DR. JOSHUA Villa CAME IN TO CHECK PT, NOTIFIED PT HAD TWICE V-TACH LAST NIGHT, SHOWED EKG TO DR. JOSHUA Villa.
[2019-07-29] MEDS ORDERED: AMIODARONE 150 MG in DEXTROSE 5% 100 ML IV SCH (14:00)
--- NOTE | 2019-07-29 14:33 | NUR ---
IN TO CHECK PT. NOTIFIED PT URINE OUTPUT IN MY SHIFT SO FAR 70 CC AND LAB REPORT ( BUN AND CREATINE).
[2019-07-29] MEDS: APIXABAN 2.5 MG TAB PO SCH (14:48)
[2019-07-29] MEDS: AZITHROMYCIN 500 MG in DEXTROSE 5% 250 ML IV SCH (17:06)
--- NOTE | 2019-07-29 17:43 | NUR ---
paged dr. cortez nephro for pt urine output during my shift. per , he will come in to check pt in one hour.
--- NOTE | 2019-07-29 18:25 | NUR ---
PT HAD DEEP BREATHING, SOUNDS LIKE PT HAS SPUTUM IN PT'S THROAT, SUCTIONED PT WITH NOTHING, CALLED RT.
--- NOTE | 2019-07-29 18:30 | NUR ---
DID NOT FEED PT DINNER TRAY IN CASE PT HAS ASPIRATION.
--- NOTE | 2019-07-29 19:25 | NUR ---
ENDORSED PT TO PM SHIFT RN. PT HR: 84, BP 90/51,RR 17, O2 SATS 98%.
--- NOTE | 2019-07-29 19:30 | NUR ---
RECEIVED REPORT FROM JOSHUA DALY. INITIAL ASSESSMENT COMPLETED. PATIENT CAN FOLLOW SIMPLE COMMANDS. ATTACHED TO DIRECT CHILL CASTING OPERATOR, PULSE OXIMETER. ON O2 @ 2LPM VIA NASAL CANNULA. IV ACCESS RIGHT WRIST G22 ON SALINE LOCK, IVF INFUSING WELL AT LEFT FEMORAL CATH TLC. MOLINA CATH IN PLACE. SAFETY MEASURE ENSURE. BED IN LOW POSITION. CONTACT ISOLATION MAINTAINED. WOUND DRESSING INTACT. WILL CONTINUE TO MONITOR.
--- NOTE | 2019-07-29 20:29 | NUR ---
PATIENT NOTED TO HAVE SHORTNESS OF BREATH, AUSCULTATED LUNGS, NOTED TO HAVE CONGESTION, RHONCHI. RT NOTIFIED, CHARGE NURSE NOTIFIED, WILL NOTIFY . O2 SAT 99 RR 26-28. WILL CONTINUE TO MONITOR.
[2019-07-29] MEDS ORDERED: FUROSEMIDE 40 MG/4 ML VIAL IVP SCH (20:30)
--- NOTE | 2019-07-29 20:45 | NUR ---
MOLINA CATH IRRIGATED ORDERED.
--- NOTE | 2019-07-29 20:48 | NUR ---
DR. ALVAREZ NOTIFIED OF PATIENT'S CONDITION. BP 94/65, O2 SAT 97% RR [address] PER [address] ALVAREZ HOLD TELE TRANSFER FOR NOW. TRANSFER PATIENT'S LEVEL OF CARE TO ICU STATUS.
[2019-07-29] MEDS: ATORVASTATIN 20 MG TAB PO SCH (21:16)
--- NOTE | 2019-07-29 23:20 | NUR ---
TRANSFER OF CARE TO CHARGE NURSE ZORAN.
--- NOTE | 2019-07-29 23:30 | NUR ---
REPORT RECEIVED FROM RN CLARIZE FOR CONTINUITY OF CARE. PATIENT IS SLEEPING QUIETLY IN BED.
[2019-07-30] VITALS (9 sets, daily range): BP systolic 98–150; BP diastolic 49–83
--- NOTE | 2019-07-30 | NUR ---
DUE DOSE OF LOPRESSOR PO NOT GIVEN BECAUSE BP IS LOW 98/63.
[2019-07-30] MEDS: IPRATROPIUM 0.02% 0.5 MG/2.5 ML NEBU IH SCH ×4 (00:55→19:14)
--- NOTE | 2019-07-30 04:30 | NUR ---
BED BATH DONE; KEPT CLEAN AND DRY.
[2019-07-30] MEDS: PIPERACILLIN/TAZOBACTAM 2.25 GM in DEXTROSE 5% 50 ML IV SCH ×3 (05:59→20:36)
[2019-07-30] MEDS: METOPROLOL 25 MG TAB PO SCH ×4 (06:43→17:07)
[2019-07-30 06:53] LABS: ALBUMIN 2.5 g/dL (3.4-5.0); ANION GAP 20.2 (8-16); CARBON DIOXIDE 18.6 mmol/L (21-32); CREATININE 3.4 mg/dL (0.6-1.3); POTASSIUM 4.8 mmol/L (3.5-5.1); TOTAL BILIRUBIN 0.7 mg/dL (0.0-1.0)
[2019-07-30 06:55] LABS: BASOPHILS % (AUTO) 0.1 % (0.0-2.0); HEMATOCRIT 33.2 % (36-48); HEMOGLOBIN 9.6 g/dL (12.0-16.0); LYMPHOCYTES # (AUTO) 1.1 K/uL (2.5-16.5); LYMPHOCYTES % (AUTO) 7.8 % (20.5-51.1); MEAN CORPUSCULAR HEMOGLOBIN 25 pg (27-31); MEAN CORPUSCULAR HGB CONC 29 g/dL (33-37); MEAN CORPUSCULAR VOLUME 85.8 fL (80-94); MONOCYTES # (AUTO) 0.7 K/uL (0.8-1.0); MONOCYTES % (AUTO) 4.5 % (1.7-9.3); NEUTROPHILS # (AUTO) 12.7 K/uL (1.8-7.7); NEUTROPHILS % (AUTO) 87.6 % (42.2-75.2); PLATELET COUNT (AUTO) 159 K/uL (140-450); RED BLOOD CELL COUNT(AUTO) 3.86 MIL/uL (4.20-5.40); RED CELL DISTRIBUTION WIDTH 22.9 % (11.6-13.7); WHITE BLOOD COUNT (AUTO) 14.5 K/uL (4.8-10.8)
--- NOTE | 2019-07-30 07:15 | NUR ---
ENDORSED TO AM SHIFT JOSHUA SANTOS FOR CONTINUITY OF CARE.
--- NOTE | 2019-07-30 07:20 | NUR ---
RECEIVED REPORT FROM LOCKER ATTENDANT RN. PT RESTING IN BED. A/O X3. FOLLOWS COMMANDS. IRREGULAR RHYTHM NOTED MONITOR. SKIN DRY AND WARM TO TOUCH. CRACKLES LUNGS. ON O2 VIA NC AT 3 LTR/MIN. NO SOB OR DIFFICULTY BREATHING NOTED AT THIS TIME. PERIPHERAL LINE NOTED ON RIGHT HAND 22G. LEFT FEMORAL TRIPLE LUMEN CATH NOTED IN PLACE. INTACT DRESSING. INTACT LINES. FLUSHED. D 5% RUNNING AT 60 ML/HR. ABDOMEN SOFT, ROUND AND NON-TENDER. ACTIVE BOWEL SOUND. FC IN PLACE DRAINING CLOUDY YELLOW URINE VIA GRAVITY. SKIN NON-INTACT. OPEN WOUND NOTED ON RIGHT LOWER LEG. DRESSING INTACT AND DRY. KEPT LEG ELEVATED. FLACC 0. KEPT HOB ELEVATED. BED IN LOW POSITION, LOCKED. WILL CONTINUE TO MONITOR.
[2019-07-30] MEDS: PANTOPRAZOLE 40 MG INJ VIAL IVP SCH (08:45)
[2019-07-30] MEDS: FUROSEMIDE 40 MG/4 ML VIAL IVP SCH (08:45)
[2019-07-30] MEDS: AMIODARONE 200 MG TAB PO SCH ×2 (08:46→20:36)
[2019-07-30] MEDS: NACL 0.9% IRR 250 ML BOTTLE IR SCH (08:46)
[2019-07-30] MEDS: MORPHINE SULFATE 4 MG/ML SYR IVP PRN ×2 (08:52→13:11)
[2019-07-30] MEDS: APIXABAN 2.5 MG TAB PO SCH ×2 (09:43→20:37)
[2019-07-30] MEDS: THERAHONEY WOUND DRESSING TP SCH (09:45)
--- NOTE | 2019-07-30 09:51 | NUR ---
DR. NEWMAN IN TO SEE THE PT. UPDATED PT STATUS AND BNP RESULT. DECREASE THE O2 RATE TO 1 LTR/MIN VIA NC PER DR. NEWMAN. PER DOCTOR, PT CAN BE DOWNGRADED TO TELE UNIT. WILL CARRYOUT ORDER.
--- NOTE | 2019-07-30 10:00 | NUR ---
SUCTIONED PER NEED. TOLERATED WELL. SMALL AMOUNT OF WHITE SECRETION NOTED. NO RESPIRATORY DISTRESS NOTED. DRESSING CHANGED TO RIGHT LOWER LEG. KEPT PT IN COMFORTABLE POSITION.
--- NOTE | 2019-07-30 10:41 | NUR ---
WOUND CARE EVALUATION NOTE: REASON FOR EVALUATION: RLE WOUND SKIN ASSESSMENT DONE WITH THIS 64 Y/O FEMALE PT ADMITTED TO [facility] WITH CHRONIC VASCULAR ULCER TO RIGHT LOWER LEG. PAST MEDICAL HX INCLUDES HX OF CVA AND DYSPHAGIA, DVT AND PULMONARY EMBOLI, CARDIAC ARRHYTHMIA. ALL ABOVE INFORMATION OBTAINED FROM ADMISSION H&P. PT SKIN IS WARM AND DRY. BLE NO HAIR GROWTH, NO EDEMA. INCONTINENT OF BOWEL. PLAN OF CARE DISCUSSED WITH PRIMARY RN. INTEGUMENTARY: -RLE VASCULAR ULCER WITH FULL THICKNESS SKIN LOSS, FULL CIRCUMFERENCE OF RLE 8X21X 0.2CM, WOUND BED IS 100% GRANULATING TISSUE, MOIST, NO ODOR, WOUND EDGE FLAT WITH EDBBIE WOUND SKIN INTACT -RIGHT /LEFT ISCHIALS AND HEALED SCAR -LEFT HEEL BLANCHABLE REDNESS RECOMMENDATIONS: -CLEANSE RIGHT LOWER LEG WOUND WITH WOUND CARE SOLUTIONS, PAT DRY, APPLY THERAHONEY SHEET, COVER WITH DRY DRESSING AND WRAP WITH KERLIX ROLLS QM-W-F AND PRN IF SOILING -CLEANSE PERIANAL WITH SOAP AND WATER, PAT DRY, APPLY HYDRAGUARD BID AND PRN WITH SOILING. -APPLY OPTIFOAM TO SACRALCOCCYX QD AND PRN SOILING PREVENTION -OFFLOAD BILATERAL HEELS BY PLACING PILLOWS UNDER CALVES UNLESS OTHERWISE CONTRAINDICATED -PRESSURE REDISTRIBUTION SURFACE -TURN AND REPOSITION Q2H, OFFLOAD SACROCOCCYX AND R/L ISCHIUM WILL FOLLOW UP PT Q7-10 DAYS. PLEASE CONTACT WOUND CARE NURSE FOR ANY QUESTION AND CHANGE OF WOUND CONDITION.
[2019-07-30] MEDS: DEXTROSE 5% 1,000 ML IV SCH (11:21)
[2019-07-30] MEDS: HYDRAGUARD CREAM TP SCH (12:16)
--- NOTE | 2019-07-30 13:01 | NUR ---
SUCTIONED PER NEED. KEPT PT CLEAN AND DRY. APPLIED FOAM DRESSING TO LOWER BACK. APPLIED HYDRAGUARD ORDER. REPOSITIONED. CATHETER CARE PROVIDED. MEDICATED PER SCHEDULED. TOLERATING WELL. RT AT THE BED SIDE NOW. PT ON BREATHING TREATMENT.
--- NOTE | 2019-07-30 15:25 | NUR ---
NO CHANGE IN CONDITION. A FIB ON MONITOR. NO SOB OR RESPIRATORY DISTRESS NOTED. NO C/O PAIN. WILL CONTINUE TO MONITOR.
--- NOTE | 2019-07-30 16:01 | NUR ---
PAGED AND RECEIVED CALL FROM DR. NEWMAN. MADE AWARE THAT PT IS MRSA NARES POSITIVE. SAID FOLLOW MRSA NARES POSITIVE PROTOCOL. ORDER CARRIED OUT.
--- NOTE | 2019-07-30 16:07 | NUR ---
DISCHARGE PLANNING 64 y/o female pt admitted due to altered level of consciousness. Pt was intubated in the ED and started on a heparin drip and IV hydration. Pt was transferred to ICU. Pt lives at home with and family who provide assistance with ADLs and care. Pt and family have refused SNF in the past. Brandee contacted Stew at and was informed Sharri is the CM assigned to this patient. Sharri was in a meeting at the time of my call; Brandee spoke to Adeel who stated the stay has been authorized until 08/02/19 (Auth #[id number]) with next review is scheduled for 08/03/19. If pt is dc home Stew will provide an auth for transportation and HH/SNF. Carmen Santiago, ACSW Ext [phone]
[2019-07-30] MEDS: MUPIROCIN CA NASAL 2% 1GM TUBE NS SCH (17:06)
[2019-07-30] MEDS: AZITHROMYCIN 500 MG in DEXTROSE 5% 250 ML IV SCH (17:07)
--- NOTE | 2019-07-30 18:29 | NUR ---
PT REFUSED TO EAT DINNER. TRY TO FEED, FALLS ASLEEP WITH FOOD IN MOUTH AND CRIES UPON WAKING UP. KEPT HOB ELEVATED. KEPT CLEAN AND DRY. NO CHANGE IN CONDITION.
--- NOTE | 2019-07-30 19:06 | NUR ---
SEEN BY DR. LEWIS. UPDATED PT STATUS. NO NEW ORDER RECEIVED.
--- NOTE | 2019-07-30 19:30 | NUR ---
ENDORSED TO ROUND KILN DRAWER RN. PT STABLE.
--- NOTE | 2019-07-30 19:31 | NUR ---
RECEIVED REPORT FROM DAYSHIFT NURSE FOR CONTINUITY OF CARE, NO COMPLAINTS AT THIS TIME, WILL FOLLOWUP CARE
--- NOTE | 2019-07-30 20:00 | NUR ---
PATIENT RESTING WELL IN BED, OPENS EYES SPONTANEOUSLY, ALERT TO NAME/VOICE, WITHDRAWS TO PAIN, BUT ANOx1. SPEECH IS GARBLED/DELAYED,ABLE TO SAY YES OR NO, ABLE TO FOLLOW SIMPLE COMMANDS. LUNG SOUNDS CLEAR IN UPPER LOBES, BUT DIMINISHED IN LOWER LOBES. ON NASAL CANNULA 2L, SATURATIONS 94%. S1S2, SR ON MONITOR, PACEMAKER IN PLACE TO LEFT UPPER CHEST. ABDOMEN SOFT AND NONTENDER, ACTIVE BOWEL SOUNDS. MOLINA CATHETER IN PLACE, YELLOW URINE WITH SEDIMENTS NOTED. PERIPHERAL IV TO THE RIGHT WRIST, 22G, FLUSHED PATENT WITH NO SYMPTOMS, SALINE LOCKED. LEFT FEMORAL TRIPLE LUMEN IN PLACE, ALL LUMENS PATENT, FLUSHED, ASYMPTOMATIC. INFUSING D5 @ 60 ML/HR. SOFT MITTENS IN PLACE TO BOTH WRISTS, REMOVED TO ASSESS SKIN AND CIRCULATION, NO INJURIES NOTED. PATIENT UPDATED ON CARE PLAN AND RESTRAINTS, CANNOT VERBALIZE UNDERSTANDING, PATIENT FALLS IN AND OUT OF SLEEP. UNSAFE TO LEAVE RESTRAINTS OFF AT THIS TIME. LOWER EXTREMITIES CONTRACTED. RIGHT LOWER LEG HAS OPEN WOUND. THERAHONEY GEL APPLIED AND WOUND IS WRAPPED WITH DRESSING AND KERLIX ROLL. HYDRAGAURD AND OPTIFOAM IN PLACE TO SACRUM FOR PREVENTATIVE MEASURES, SKIN INTACT. CONTACT ISOLATION PRECAUTIONS IN PLACE. BED LOCKED AND IN LOWEST POSITION, SIDERAILS UP. WILL CONTINUE TO MONITOR
[2019-07-30] MEDS: ATORVASTATIN 20 MG TAB PO SCH (20:36)
--- NOTE | 2019-07-30 21:00 | NUR ---
ORAL CARE PROVIDED, PATIENT MOANS AND SCREAMS, ASKED ABOUT PAIN BUT PATIENT DENIES PAIN. ADMINISTERED SCHEDULE MEDICATIONS AND FED PATIENT. ATE 5/6 SCOOPS OF PUREED DIET. TURNED AND REPOSITIONED PATIENT, TOLERATED FAIRLY
--- NOTE | 2019-07-30 23:27 | NUR ---
TURNED AND REPOSITIONED PATIENT, REMOVED RESTRAINTS, SKIN INTACT.
[2019-07-31] VITALS: BP 114/58
--- NOTE | 2019-07-31 00:30 | NUR ---
SCHEDULED MEDICATIONS GIVEN, PATIENT TURNED AND REPOSITIONED, PATIENT TOLERATED FAIRLY. RIGHT LEG CONTRACTED AND LARGE OPEN WOUND, PILLOWS PLACED TO OFFLOAD PRESSURE SITES. HOB 30 DEGREES, SIDE RAILS UP, BED LOCKED AND IN LOW POSITION
[2019-07-31] MEDS: METOPROLOL 25 MG TAB PO SCH ×4 (00:42→18:00)
[2019-07-31] MEDS: IPRATROPIUM 0.02% 0.5 MG/2.5 ML NEBU IH SCH ×5 (01:03→19:56)
--- NOTE | 2019-07-31 01:13 | NUR ---
RT AT BEDSIDE FOR BREATHING TREATMENT, PATIENTS HEART RATE DECREASED TO 40'S BUT INACCURATE READINGS. ELECTRODES REPLACED. HEART RATE BACK TO 70'S. WILL CONTINUE TO MONITOR
[2019-07-31] MEDS: HYDRAGUARD CREAM TP SCH ×2 (01:45→13:27)
[2019-07-31] MEDS: DEXTROSE 5% 1,000 ML IV SCH (02:30)
--- NOTE | 2019-07-31 03:31 | NUR ---
REORIENTED PATIENT ABOUT REMOVING EQUIPMENT/LINES. NASAL CANNULA WAS DISPLACED BY PATIENT. SATURATIONS WNL. RESPIRATIONS INCREASING. NASAL CANNULA BACK IN PLACE TO 2LPM, PT VERBALIZES UNDERSTANDING. VSS
[2019-07-31 04:00] VITALS: BP 99/56
--- NOTE | 2019-07-31 05:15 | NUR ---
ORAL CARE, SKIN CARE, MOLINA CARE AND CHLORHEXIDINE BATH PROVIDED. PATIENT TOLERATED WELL. BLE CONTRACTED, RIGHT LOWER LEG OPEN WOUND, WRAPPED WITH DRY DRESSING, THERAHONEY APPLIED. OFFSET BONY PROMINENCES WITH PILLOWS. LEFT FEMORAL TRIPLE LUMEN IN PLACE, NO SYMPTOMS, INFUSING D5 @ 60 ML. NASAL CANNULA TO 2LPM. SOFT MITTENS REMOVED AT THIS TIME, PATIENT UNDERSTANDS TO LEAVE EQUIPMENT IN PLACE. HOB 30 DEGREES, SAFETY ALARMS IN PLACE. CHANGED POSITION. DENIES PAIN
[2019-07-31] MEDS: PIPERACILLIN/TAZOBACTAM 2.25 GM in DEXTROSE 5% 50 ML IV SCH ×3 (05:35→20:20)
[2019-07-31 06:26] LABS: BASOPHILS % (AUTO) 0.2 % (0.0-2.0); EOSINOPHILS # (AUTO) 0.2 K/uL (0-0.4); EOSINOPHILS % (AUTO) 2.7 % (0.0-4.0); HEMATOCRIT 33.3 % (36-48); HEMOGLOBIN 9.8 g/dL (12.0-16.0); LYMPHOCYTES # (AUTO) 2.1 K/uL (2.5-16.5); LYMPHOCYTES % (AUTO) 22.9 % (20.5-51.1); MEAN CORPUSCULAR HEMOGLOBIN 25 pg (27-31); MEAN CORPUSCULAR HGB CONC 30 g/dL (33-37); MONOCYTES # (AUTO) 0.7 K/uL (0.8-1.0); MONOCYTES % (AUTO) 7.5 % (1.7-9.3); NEUTROPHILS # (AUTO) 6.2 K/uL (1.8-7.7); NEUTROPHILS % (AUTO) 66.7 % (42.2-75.2); PLATELET COUNT (AUTO) 166 K/uL (140-450); RED BLOOD CELL COUNT(AUTO) 3.92 MIL/uL (4.20-5.40); RED CELL DISTRIBUTION WIDTH 22.3 % (11.6-13.7); WHITE BLOOD COUNT (AUTO) 9.3 K/uL (4.8-10.8)
[2019-07-31 06:30] LABS: ALBUMIN 2.5 g/dL (3.4-5.0); ANION GAP 19.4 (8-16); CARBON DIOXIDE 19.7 mmol/L (21-32); POTASSIUM 4.1 mmol/L (3.5-5.1); TOTAL BILIRUBIN 0.7 mg/dL (0.0-1.0)
[2019-07-31 06:33] LABS: PHOSPHORUS 4.5 mg/dL (2.5-4.9)
--- NOTE | 2019-07-31 06:50 | NUR ---
CRITICAL LAB- BUN 63, CREATININE- 4.1
[2019-07-31 06:51] LABS: CREATININE 4.1 mg/dL (0.6-1.3)
[2019-07-31] MEDS: MORPHINE SULFATE 4 MG/ML SYR IVP PRN ×3 (07:24→20:55)
--- NOTE | 2019-07-31 07:30 | NUR ---
RECEIVED PT FROM PM SHIFT RN. PT OPENS EYES SPONTANEOUSLY, ALERT TO NAME/VOICE, PT ABLE TO SAY YES OR NO, ABLE TO FOLLOW SIMPLE COMMANDS BUT CAN NOT MAKE NEEDS KNOWN.ON NASAL CANNULA 2L, LUNG SOUNDS CLEAR SATURATIONS 99%. BEDSIDE MONITOR SHOWS SR. PACEMAKER TO LEFT UPPER CHEST. ABDOMEN SOFT AND NONTENDER, ACTIVE BOWEL SOUNDS. MOLINA CATHETER IN PLACE, YELLOW URINE WITH SEDIMENTS NOTED. PT HAS LEFT FEMORAL TRIPLE LUMEN IN PLACE, ALL LUMENS PATENT, FLUSHED, ASYMPTOMATIC. INFUSING D5 @ 60 ML/HR. PERIPHERAL IV TO THE RIGHT WRIST, 22G, FLUSHED PATENT WITH NO SYMPTOMS, SALINE LOCKED. LOWER EXTREMITIES CONTRACTED. RIGHT LOWER LEG HAS OPEN WOUND. WOUND IS WRAPPED WITH DRESSING AND KERLIX ROLL. OPTIFOAM IN PLACE TO SACRUM FOR PREVENTATIVE MEASURES, SKIN NON INTACT ( SEE WOUND ASSESSMENT). CONTACT ISOLATION PRECAUTIONS . BED LOCKED AND IN LOWEST POSITION, SIDERAILS UP. WILL CONTINUE TO MONITOR .
[2019-07-31 08:00] VITALS: BP 120/69
[2019-07-31] MEDS ORDERED: PROBIOTIC SCREEN 1 EA MISC MC PRN (08:40)
[2019-07-31] MEDS: AMIODARONE 200 MG TAB PO SCH ×2 (08:57→20:19)
[2019-07-31] MEDS: FUROSEMIDE 40 MG/4 ML VIAL IVP SCH (08:57)
[2019-07-31] MEDS: LACTOBACILLUS RHAMNOSUS GG 1 EACH CAP PO SCH (08:57)
[2019-07-31] MEDS: PANTOPRAZOLE 40 MG INJ VIAL IVP SCH (08:57)
[2019-07-31] MEDS: DOCUSATE SODIUM 100 MG GELCAP PO SCH (08:57)
[2019-07-31] MEDS: APIXABAN 2.5 MG TAB PO SCH ×2 (08:58→20:22)
[2019-07-31] MEDS: CHLORHEXADINE GLUC 2% CLOTH TP SCH (08:59)
[2019-07-31] MEDS: MUPIROCIN CA NASAL 2% 1GM TUBE NS SCH (08:59)
[2019-07-31] MEDS ORDERED: VANCOMYCIN 750 MG in DEXTROSE 5% 250 ML IV SCH (09:00)
--- NOTE | 2019-07-31 11:30 | NUR ---
BEDSIDE MONITOR SHOWS PT HAD V-TACH 120 s, CALLED DR. JOSHUA Villa. ALSO NOTIFIED DR. LEWIS I just gave Lopressor 25 mg about 23 minutes ago. pt on amiodarone 200 mg BID, per Dr. lewis, pt HR will decrease. call him in one hour.
--- NOTE | 2019-07-31 11:35 | NUR ---
checked pt, asked her: Are you ok ?" pt stated "Yeah". no s/s of respiratory distress noted.
--- NOTE | 2019-07-31 11:53 | NUR ---
bedside monitor shows A-fib at this moment. HR 69.
[2019-07-31 12:00] VITALS: BP 110/68
[2019-07-31] MEDS: DEXT 5% / NACL 0.45% 1,000 ML IV SCH (13:27)
--- NOTE | 2019-07-31 15:41 | NUR ---
07/31/19 RD FOLLOW UP COMPLETED PLEASE REFER TO NUTRITION ASSESSMENT UNDER CARE ACTIVITY FOR ESTIMATED NUTRITIONAL NEEDS. 1. RECOMMEND CARDIAC PUREE DIET TOLERATED 2. CONTINUE TO PROVIDE FEEDING ASSISTANCE TO PATIENT 3. RECOMMEND VITAMIN C [address] TO FOLLOW-UP 3-5 DAYS, MODERATE RISK TREY JESUS, ESTUARDO
[2019-07-31 15:43] VITALS: BP 103/66
[2019-07-31] MEDS ORDERED: VANCOMYCIN PER PHARMACY MC PRN (17:20)
[2019-07-31] MEDS: AZITHROMYCIN 500 MG in DEXTROSE 5% 250 ML IV SCH (18:01)
--- NOTE | 2019-07-31 19:23 | NUR ---
RECEIVED REPORT FROM DAYSHIFT NURSE AT PATIENTS BEDSIDE, VITALS STABLE, ASSESSED PAIN, PATIENT DENIES BUT CONTINUES TO MOAN, WILL FURTHER ASSESS.
[2019-07-31 20:00] VITALS: BP 111/69
--- NOTE | 2019-07-31 20:05 | NUR ---
PATIENT IN BED, OPENS EYES TO VOICE, ANOx1, MAKES NEEDS KNOWN, SPEECH IS DELAYED/GARBLED. RIGHT UPPER EXTREMITY IMMOBILE, LOWER EXTREMITIES CONTRACTED. ON NASAL CANNULA 2L, SATURATIONS >95%, VERY AUDIBLE RHONCHI AND CRACKLES NOTED. S1S2, SR ON MONITOR, UPPER LEFT CHEST PACEMAKER IN PLACE. ABDOMEN SOFT AND NONTENDER, ACTIVE BOWEL SOUNDS.LEFT FEMORAL CENTRAL LINE IN PLACE, TRIPLE LUMEN, ALL LUMENS FLUSH WITHOUT SYMPTOMS. INFUSING D5 0.45NS @ 75ML/HR. RIGHT WRIST PERIPHERAL IV 22G, FLUSHED WITHOUT SYMPTOMS, SALINE LOCKED. MOLINA CATHETER IN PLACE, YELLOW CLOUDY/SEDIMENT NOTED. RIGHT LOWER LEG HAS OPEN WOUND, DRESSING DRY AND INTACT, SEE WOUND ASSESSMENT. BED LOCKED AND IN LOW POSITION, SIDERAILS UPS, CONTACT ISOLATION PRECAUTIONS IN PLACE
--- NOTE | 2019-07-31 20:07 | NUR ---
RECEIVED PT ON 2L NC, SPO2 94% BREATH SOUNDS RHONCHI; PT WAS ENCOURAGE TO COUGH. NO RESPIRATORY DISTRESS NOTED AT THIS TIME. TX GIVEN ORDERED. NO ADVERSE REACTION. WILL CONTINUE TO MONITOR PT
[2019-07-31] MEDS: ATORVASTATIN 20 MG TAB PO SCH (20:19)
--- NOTE | 2019-07-31 20:45 | NUR ---
PATIENT CONTINUES TO MOAN AND SCREAM VERY LOUDLY, FROWNS, WITHDRAWS TO REPOSITIONING. ASKED IF PATIENT WOULD LIKE PAIN MEDICATIONS AND SAYS NO, ASKED IF THE PATIENT IS IN PAIN, SHE JUST YELLS, ASKED WHATS WRONG AND PATIENT STATES " I DONT KNOW" REPOSITIONED PATIENT FOR COMFORT AND ASKED AGAIN ABOUT PAIN MEDICATIONS, SHE REPLIES YES, WILL CARRY OUT PRN MEDS FOR PAIN
--- NOTE | 2019-07-31 21:00 | NUR ---
PROVIDED ORAL CARE, PATIENT TOLERATED FAIRLY. PATIENT TOO WEAK TO COUGH UP SECRETIONS, SUCTIONED WITH YANKEUR. SCHEDULED MEDICATIONS ADMINISTERED. CRUSHED MEDICATIONS IN MASHED POTATOES, PATIENT ATE 6-7 BITES OF DINNER. WILL CONTINUE TO MONITOR
--- NOTE | 2019-07-31 21:45 | NUR ---
PATIENT RESTING WELL/COMFORTABLY, EYES CLOSED. PATIENT CALM AND QUIET, EYES CLOSED. VSS, FLACC 0.
[2019-08-01] VITALS: BP 108/62
[2019-08-01] MEDS: METOPROLOL 25 MG TAB PO SCH ×4 (00:17→18:04)
--- NOTE | 2019-08-01 00:20 | NUR ---
PATIENT TURNED AND REPOSITIONED. PROVIDED ORAL CARE AND SCHEDULED MEDICATIONS. FLACC 0
[2019-08-01] MEDS: HYDRAGUARD CREAM TP SCH ×2 (01:00→12:24)
[2019-08-01] MEDS: IPRATROPIUM 0.02% 0.5 MG/2.5 ML NEBU IH SCH ×4 (01:32→19:55)
--- NOTE | 2019-08-01 02:09 | NUR ---
PATIENT ASLEEP, NO SIGNS OF DISTRESS, FLACC 0, BREATHING IS UNLABORED, VITAL SIGNS STABLE. SIDE RAILS UP, BED LOCKED AND IN LOWEST POSITION, NASAL CANNULA IN PLACE TO 2LPM.
--- NOTE | 2019-08-01 03:15 | NUR ---
LEFT FEMORAL CENTRAL LINE DRESSING CHANGE, PATIENT TOLERATED FAIRLY. LOWER EXTREMITIES CONTRACTED, DRESSING DRY AND INTACT.
[2019-08-01 04:00] VITALS: BP 89/44
[2019-08-01] MEDS: DEXT 5% / NACL 0.45% 1,000 ML IV SCH ×2 (05:00→18:58)
--- NOTE | 2019-08-01 05:12 | NUR ---
CHLORHEXIDINE BATH PROVIDED, ORAL CARE, AND MOLINA CATHETER CARE PROVIDED. TURNED AND REPOSITIONED PATIENT. CHANGED ALL LINEN AND PILLOW CASES, OPTIFOAM DRESSING TO SACRUM FOR PREVENTATIVE SKIN BREAKDOWN. HYDRAGAURD BARRIER CREAM APPLIED. SKIN INTACT.
[2019-08-01] MEDS: PIPERACILLIN/TAZOBACTAM 2.25 GM in DEXTROSE 5% 50 ML IV SCH (05:39)
[2019-08-01 07:14] LABS: ALBUMIN 2.3 g/dL (3.4-5.0); ANION GAP 20.5 (8-16); CARBON DIOXIDE 18.5 mmol/L (21-32); CREATININE 3.7 mg/dL (0.6-1.3); TOTAL BILIRUBIN 0.8 mg/dL (0.0-1.0)
--- NOTE | 2019-08-01 07:25 | NUR ---
RECEIVED PT REPORT FROM CARPENTER FORM RN, JOSHUA MAZARIEGOS. PATIENT IN BED, OPENS EYES TO VOICE, Ox1, ABLE TO ANSWERING SOME SIMPLE QUESTIONS. BILATERAL LOWER EXTREMITIES CONTRACTED. ON 2L O2 VIA NASAL CANNULA WITHOUT ANY DISTRESS. LUNG SOUND COARSE. AFIB ON MONITOR. ABDOMEN SOFT AND NONTENDER, ACTIVE BOWEL SOUNDS. LEFT FEMORAL CENTRAL LINE IN PLACE, TRIPLE LUMEN, ALL LUMENS FLUSHED, ASYMPTOMATIC, INFUSING D5 1/2NS AT 75ML/HR. RIGHT WRIST PERIPHERAL IV 22G, FLUSHED, ASYMPTOMATIC, SALINE LOCKED. MOLINA CATHETER IN PLACE, DRAINING YELLOW URINE WITH SEDIMENTS. RIGHT LOWER LEG WOUND WITH DRESSING DRY AND INTACT. BED LOCKED AND IN LOWEST POSITION, SIDE RAILS UPS X2, CONTACT ISOLATION PRECAUTIONS IN PLACE.
[2019-08-01 07:37] LABS: BASOPHILS % (AUTO) 0.2 % (0.0-2.0); EOSINOPHILS # (AUTO) 0.6 K/uL (0-0.4); EOSINOPHILS % (AUTO) 5.5 % (0.0-4.0); HEMATOCRIT 33.8 % (36-48); HEMOGLOBIN 10.2 g/dL (12.0-16.0); LYMPHOCYTES # (AUTO) 2.3 K/uL (2.5-16.5); LYMPHOCYTES % (AUTO) 21.7 % (20.5-51.1); MEAN CORPUSCULAR HEMOGLOBIN 25 pg (27-31); MEAN CORPUSCULAR HGB CONC 30 g/dL (33-37); MEAN CORPUSCULAR VOLUME 83.5 fL (80-94); MONOCYTES % (AUTO) 9.3 % (1.7-9.3); NEUTROPHILS # (AUTO) 6.6 K/uL (1.8-7.7); NEUTROPHILS % (AUTO) 63.3 % (42.2-75.2); PLATELET COUNT (AUTO) 194 K/uL (140-450); RED BLOOD CELL COUNT(AUTO) 4.05 MIL/uL (4.20-5.40); RED CELL DISTRIBUTION WIDTH 22.1 % (11.6-13.7); WHITE BLOOD COUNT (AUTO) 10.4 K/uL (4.8-10.8)
[2019-08-01 07:45] LABS: MAGNESIUM 1.8 mg/dL (1.8-2.4); PHOSPHORUS 4.5 mg/dL (2.5-4.9); VANCOMYCIN,RANDOM 21.5 ug/ml
[2019-08-01 08:00] VITALS: BP 101/52
[2019-08-01] MEDS: LACTOBACILLUS RHAMNOSUS GG 1 EACH CAP PO SCH (08:25)
[2019-08-01] MEDS: APIXABAN 2.5 MG TAB PO SCH ×2 (08:26→20:36)
[2019-08-01] MEDS: AMIODARONE 200 MG TAB PO SCH ×2 (08:26→20:34)
[2019-08-01] MEDS: FUROSEMIDE 40 MG/4 ML VIAL IVP SCH (08:27)
[2019-08-01] MEDS: MUPIROCIN CA NASAL 2% 1GM TUBE NS SCH (08:28)
[2019-08-01] MEDS: PANTOPRAZOLE 40 MG INJ VIAL IVP SCH (08:28)
[2019-08-01] MEDS: THERAHONEY WOUND DRESSING TP SCH (08:29)
[2019-08-01] MEDS: DOCUSATE SODIUM 100 MG GELCAP PO SCH (08:29)
[2019-08-01] MEDS: NACL 0.9% IRR 250 ML BOTTLE IR SCH (08:29)
[2019-08-01] MEDS: CHLORHEXADINE GLUC 2% CLOTH TP SCH (08:29)
[2019-08-01] MEDS: MORPHINE SULFATE 4 MG/ML SYR IVP PRN ×2 (09:12→13:24)
--- NOTE | 2019-08-01 09:15 | NUR ---
PT WAS PREMEDICATED WITH MORPHINE FOR WOUND DRESSING CHANGE. RINSED WOUND WITH NS AND PATTED DRY, APPLIED THERAHONEY SHEETS AND WRAPPER WITH DICKSON. PT TOLERATED FAIR.
[2019-08-01 12:00] VITALS: BP 120/65
--- NOTE | 2019-08-01 12:00 | NUR ---
WOUND PIC TAKEN FILED IN CHART.
--- NOTE | 2019-08-01 12:24 | NUR ---
ATTEMPTED BLOOD GAS 3 TIMES WITH NO SUCCESS. PT IRRITABLE AND SCREAMING. RN AT BEDSIDE HELPING RT. PT'S SPO2 ON ROOM AIR IS 95-98%. CHARGE NURSE HARRY RUIZ. PAGEMonica NEWMAN AND WAITING FOR CALL BACK.
--- NOTE | 2019-08-01 13:14 | NUR ---
PAGED DR NEWMAN. WANTS TO DISCUSS WITH TRENT ABOUT DISCHARGING.
--- NOTE | 2019-08-01 13:36 | NUR ---
DR NEWMAN CALLED BACK, HOWEVER GOT DISCONNECTED.
--- NOTE | 2019-08-01 13:40 | NUR ---
PAGED DR NEWMAN AGAIN
--- NOTE | 2019-08-01 14:15 | NUR ---
TALKED TO PT'S ON THE PHONE, MADE HIM AWARE OF DISCHARGE PLANNING FOR TODAY. HE SAID HE WILL STAY AT HOME TODAY. ASKED IF PT IS TAKING ANY PAIN MED AT HOME. PT'S SAID PT IS TAKING NORCO 10MG PRN Q4H, HE STILL HAS 3 PILLS LEFT. MADE HIM AWARE WILL ASK DR NEWMAN TO SEE IF HE CAN WRITE A RX FOR THAT. IF NOT HE CAN GO TO HIS PCP.
--- NOTE | 2019-08-01 14:35 | NUR ---
SPOKE WITH DR NEWMAN OVER THE PHONE. MADE HIM AWARE RT COULD NOT GET AN ABG, HOWEVER, PT O2 SAT IS ABOVE 95% ON ROOM AIR. ASKED IF DR NEWMAN OK TO DELETE HOME O2 MANAGEMENT FOR DC PLANNING. SAID YES, ALSO ORDERED TO REMOVE CVC AND IV AND MOLINA CATH. ASKED DR NEWMAN IF HE CAN PRESCRIBE SOME NORCO FOR RIGHT LEG WOUND PAIN. DR NEWMAN SAID HE WILL HAVE SOMEONE SEND THE RX BY 5PM TODAY.
--- NOTE | 2019-08-01 15:03 | NUR ---
Clinicals faxed to [facility] .
--- NOTE | 2019-08-01 15:05 | NUR ---
No AUTH needed for [facility] for wound care X6 visits per Stew . Spoke with Alie from [facility] and they will take the pt. They will call the pt tomorrow.
--- NOTE | 2019-08-01 15:32 | NUR ---
Spoke with Sharri RYAN from [facility] . She will get AUTH for transportation and call me back.
--- NOTE | 2019-08-01 15:51 | NUR ---
AUTH # [id number] with [employer] given by Sharri Mathias.
[2019-08-01 16:00] VITALS: BP 116/70
--- NOTE | 2019-08-01 16:00 | NUR ---
Transportation arranged with [facility]. Pt will be picked up at 2100 via [facility]. Pt will be transported to their home at [address] [place] [address]. Informed Merlene SANTOS for cloth picker time.
[2019-08-01] MEDS ORDERED: HYDR-5122 PO (17:34)
--- NOTE | 2019-08-01 17:37 | NUR ---
RECEIVED RX [email or web address], PLACED IT WITH PT'S DC PAPER.
--- NOTE | 2019-08-01 17:50 | NUR ---
CALLED PT'S RJ, LET HIM AWARE PT IS GOING HOME AROUND 2100 BY [facility]. DC INSTRUCTIONS GIVEN, RJ VERBALIZED UNDERSTANDING. RJ WILL APPT WITH PCP WITHIN 1 WEEK, NURSE WILL CALL HIM TOMORROW. PRIORITY ONE NUMBER PROVIDED. Addendum: 08/01/19 at 1927 by Keshav Ingram RN ALSO MADE HIM AWARE THE RX IN THE DC PACKET
--- NOTE | 2019-08-01 19:30 | NUR ---
RECEIVED REPORT FROM AM NURSE. PT AT BED AWAKE, PERRLA 3MM, BRISK, CALM, COOPERATIVE, PT BREATHING REGULARLY AT ROOM AIR 02 SAT 94%, HR REGULAR S1S2 PRESENT, CAP REFILL <3S, PULSES 2+ BILATERAL UPPER AND LOWER EXTREMITIES, ABDOMEN, SOFT, ROUND, NONDISTENDED, NONTENDER, ABDOMEN SOFT, ROUND, NONDISTENDED, NONTENDER, BOWEL SOUNDS ACTIVE IN ALL QUADRANTS, BLADDER SOFT, ROUND, NONDISTENDED, NONTENDER, MOLINA CATHETER IN PLACE. DRAINING CLEAR, YELLOW URINE, PT HAS GENERALIZED WEAKNESS, PT SKIN NON INTACT, PT HAS WOUND ON RIGHT LOWER LEG, KERLIX DRESSING IN PLACE, DRY, INTACT, SKIN, WARM, DRY, COLOR APPROPRIATE TO ETHNICITY, PT HAS LEFT FEMORAL CENTRAL LINE, TRIPLE LUMEN, RUNNING D5 1/2 NS. HOB 30 DEGREES, SIDE RAILS UP X2, BED AT LOWEST POSITION.
[2019-08-01 20:00] VITALS: BP 132/89
--- NOTE | 2019-08-01 20:35 | NUR ---
MEDICATIONS GIVEN. PT SWALLOWED MEDICATIONS WITH THICKENED FLUID WITH NO PROBLEMS NOTED.
[2019-08-01] MEDS: ATORVASTATIN 20 MG TAB PO SCH (20:36)
--- NOTE | 2019-08-01 21:35 | NUR ---
PT LEFT THE UNIT WITH EMT FROM [facility].
== END 2019-08-01 21:35 | disposition home health service (06) | DRG 720 ==
LOC: MED 11:21 → MIC 16:32
PROVIDERS: ADMIT Internal Medicine Pulmonary Disease; ATTEND Internal Medicine Pulmonary Disease
PROC: 02HV33Z Insertion of Infusion Device into Superior Vena Cava, Percutaneous Approach (ICD-10-PCS; principal; 2019-07-27)
PROC: 5A1935Z Respiratory Ventilation, Less than 24 Consecutive Hours (ICD-10-PCS; 2019-07-27)
PROC: B548ZZA Ultrasonography of Superior Vena Cava, Guidance (ICD-10-PCS; 2019-07-27)
PROC: 0BH17EZ Insertion of Endotracheal Airway into Trachea, Via Natural or Artificial Opening (ICD-10-PCS; 2019-07-27)
DX: A41.9 Sepsis, unspecified organism (principal); J96.01 Acute respiratory failure with hypoxia; N17.0 Acute kidney failure with tubular necrosis; I21.A1 Myocardial infarction type 2; R65.21 Severe sepsis with septic shock; J18.9 Pneumonia, unspecified organism; G93.41 Metabolic encephalopathy; E44.0 Moderate protein-calorie malnutrition; I13.0 Hypertensive heart and chronic kidney disease with heart failure and stage 1 through stage 4 chronic kidney disease, or unspecified chronic kidney disease; J44.0 Chronic obstructive pulmonary disease with (acute) lower respiratory infection; I48.20 Chronic atrial fibrillation, unspecified; F03.90 Unspecified dementia, unspecified severity, without behavioral disturbance, psychotic disturbance, mood disturbance, and anxiety; N39.0 Urinary tract infection, site not specified; I48.91 Unspecified atrial fibrillation; E87.0 Hyperosmolality and hypernatremia; E11.22 Type 2 diabetes mellitus with diabetic chronic kidney disease; I50.22 Chronic systolic (congestive) heart failure; N18.3 Chronic kidney disease, stage 3 (moderate); Z86.73 Personal history of transient ischemic attack (TIA), and cerebral infarction without residual deficits; Z68.27 Body mass index [BMI] 27.0-27.9, adult
CPT/HCPCS: 36415; 70450; 71045; 76770; 80053; 80202; 81001; 82140; 82550; 82553; 82948; 83605; 83690; 83735; 83880; 84100; 84484; 85025; 85384; 85610; 85730; 86886; 86900; 86901; 87040; 87070; 87081; 87086; 87205; 93005; 94002; 94003; 94640; 96365; 96366; 96367; 96375; 99291; C9113; J0282; J0456; J1644; J1720; J1940; J2270; J2370; J2543; J2704; J3370; J3411; J3490; J7030; J7042; J7060; J7644; Q0092

== ENCOUNTER 2019-08-09 11:37 | Inpatient (IN) | payer OTHER ==
[~2019-08-09] VITALS: Ht 165.1 cm; Wt 66.2 kg
[2019-08-09] VITALS (20 sets, daily range): BP systolic 97–162; BP diastolic 60–128
[~2019-08-09 11:37] MED LIST changes: -ACET-2619 PO; -ALBU3SOL83 IH; +AMIO200T5 PO; +APIX5TAB PO; +ASCO500T45 PO; -ASPI-1718 PO; +ATEN100T6 PO; -ATOR10TA PO; +ATOR20TA PO; -ATRN INH; -CITA20TA15 PO; -COL250 PO; -DILT60TA94 PO; -DUONEB HHN; +GABA300C PO; +HYDR-5122 PO; +LISI40TA12 PO; -LISI5TAB18 PO; -MENT1OIN22 TP; -METO100T14 PO; +METO25TA PO; +PENT400T67 PO; -POTA20TE15 PO; -SACC250C1 PO; -SPIR50TA PO; -SULF1TAB12 PO
--- NOTE | 2019-08-09 11:40 | NUR ---
Pt gume from home and placed in bed 10 by EMS.
--- NOTE | 2019-08-09 11:47 | NUR ---
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 Pt arrived to ED with family friend who states he lives with patient and is a overlock hemmer. Pt recently discharged from here for sepsis and PNA. Pt on 2L nasal canula, RR 34, rhonchi lung sounds x5 lobes, O2 sat 100 on the supplemental oxygen. Pt awake, non verbal per EMS. Pt has hx of CVA, COPD, CHF. Pt arrived with IV 20 gauge to left wrist established by EMS. Addendum: 08/09/19 at 1439 by [employer] OPEN WOUND RIGHT LOWER LEG.
--- NOTE | 2019-08-09 12:04 | NUR ---
DR. MARTIN EVALUATING PT AT BEDSIDE
[2019-08-09] MEDS ORDERED: ALBUTEROL SULFATE/IPRATROPIU 3 ML SOL IH ONE (12:10)
[2019-08-09] MEDS ORDERED: NACL 0.9% 500 ML IV ONE ×2 (12:10→13:45)
--- NOTE | 2019-08-09 12:18 | NUR ---
LAB AT BEDSIDE.
--- NOTE | 2019-08-09 12:19 | NUR ---
RT AT BEDSIDE.
--- NOTE | 2019-08-09 12:22 | NUR ---
ABG DRAWN BY GREGOR, FITNESS TRAINER PRESSURE APPLIED AT PUNCTURE SITE NO EVIDENCE OFHEMATOMA
--- NOTE | 2019-08-09 12:23 | NUR ---
[facility] THERAPY AND RESPIRATORY DRUGS GIVEN ORDERED
[2019-08-09 12:51] LABS: BASOPHILS # (AUTO) 0.1 K/uL (0.00-0.22); BASOPHILS % (AUTO) 0.6 % (0.0-2.0); EOSINOPHILS # (AUTO) 0.1 K/uL (0-0.4); EOSINOPHILS % (AUTO) 1.6 % (0.0-4.0); HEMATOCRIT 31.4 % (36-48); HEMOGLOBIN 9.6 g/dL (12.0-16.0); LYMPHOCYTES # (AUTO) 1.9 K/uL (2.5-16.5); LYMPHOCYTES % (AUTO) 21.4 % (20.5-51.1); MEAN CORPUSCULAR HEMOGLOBIN 25 pg (27-31); MEAN CORPUSCULAR HGB CONC 31 g/dL (33-37); MEAN CORPUSCULAR VOLUME 81.5 fL (80-94); MONOCYTES # (AUTO) 0.4 K/uL (0.8-1.0); MONOCYTES % (AUTO) 4.7 % (1.7-9.3); NEUTROPHILS # (AUTO) 6.5 K/uL (1.8-7.7); NEUTROPHILS % (AUTO) 71.7 % (42.2-75.2); PLATELET COUNT (AUTO) 365 K/uL (140-450); RED BLOOD CELL COUNT(AUTO) 3.85 MIL/uL (4.20-5.40); RED CELL DISTRIBUTION WIDTH 21.5 % (11.6-13.7)
[2019-08-09 13:02] LABS: ANION GAP 14.9 (8-16); CHLORIDE 113 mmol/L (98-107); CREATININE 1.5 mg/dL (0.6-1.3); GFR ARICAN-AMERICAN 45 mL/min (>90); GLUCOSE 104 mg/dL (74-106); POTASSIUM 3.9 mmol/L (3.5-5.1); SODIUM SERUM 148 mmol/L (136-145); UREA NITROGEN, BLOOD 24 mg/dL (7-18)
[2019-08-09 13:15] LABS: ALBUMIN 2.8 g/dL (3.4-5.0); ASPARTATE AMINOTRANSFERASE 29 U/L (15-37); TOTAL BILIRUBIN 0.8 mg/dL (0.0-1.0)
[2019-08-09 13:19] LABS: ACETAMINOPHEN < 0.5 ug/ml (10-30); SALICYLATE < 2.8 mg/dL (2.8-20.0)
[2019-08-09] MEDS ORDERED: fentaNYL 0.05 MG/ML VIAL IVP ONE ×2 (13:45→15:10)
--- NOTE | 2019-08-09 13:50 | NUR ---
SUBLIMAZE 0.05 MG IV LEFT WRIST GIVEN AT THIS TIME.
--- NOTE | 2019-08-09 13:50 | NUR ---
Heather dunlap in ED - 08/09/19 at 1416 by MED1 SUBLIMAZE 0.50 MG IV LEFT WRIST GIVEN AT THIS TIME.
--- NOTE | 2019-08-09 13:54 | NUR ---
RT AT BEDSIDE.
--- NOTE | 2019-08-09 13:59 | NUR ---
PT REMOVING BIPAP DESPITE REORIENTATION, INCREASED MONITORING AND OTHER MEASURES. DR MARTIN AT BEDSIDE, VERBAL ORDER FOR BL SOFT WRIST RESTRAINTS FROM DR MARTIN. BL WRISTS, +CMS. PT SUCTIONED VIA NASOTRACHIAL SUCTION BY RT, PT ABLE TO TOLERATE PROCEDURE. PT PLACED ON BIPAP. ALL NEEDS MET AT THIS TIME.
--- NOTE | 2019-08-09 14:06 | NUR ---
Patient appears to be SLEEPING comfortably in bed. RR 29/MINS, O2 SAT 100% WITH BI PAP, BP 152/122. WILL CONTINUE TO MONITOR.
[2019-08-09] MEDS ORDERED: AMIODARONE 150 MG in DEXTROSE 5% 100 ML IV ONE (14:50)
[2019-08-09] MEDS ORDERED: AMIODARONE 150 MG/3 ML VIAL IV ONE (15:01)
[2019-08-09 15:03] LABS: FREE T4 (FREE THYROXINE) 1.08 ng/dL (0.76-1.46); THYROID STIMULATING HORMONE 0.18 uIU/mL (0.34-3.74)
--- NOTE | 2019-08-09 15:05 | NUR ---
CHANGE FROM BI PAP TO CPAP AT THIS TIME.
[2019-08-09] MEDS ORDERED: PIPERACILLIN/TAZOBACTAM 3.375 GM in DEXTROSE 5% 50 ML IV ONE (15:35)
--- NOTE | 2019-08-09 15:44 | NUR ---
Pt returned from CT and placed in bed 10.
[2019-08-09 15:46] LABS: APPEARANCE,URINE CLEAR (CLEAR); BILIRUBIN,URINE 1+ (NEGATIVE); BLOOD, URINE NEGATIVE (NEGATIVE); COLOR,URINE YELLOW (YELLOW); LEUKOCYTE ESTERASE ,URINE NEGATIVE (NEGATIVE); NITRITE, URINE NEGATIVE (NEGATIVE); UGLUCOSE NEGATIVE (NEGATIVE)
[2019-08-09] MEDS ORDERED: PIPERACILLIN/TAZOBACTAM 3.375 GM VIAL IV ONE (15:47)
[2019-08-09] MEDS ORDERED: ROCURONIUM 50 MG/5 ML VIAL IV ONE (15:50)
[2019-08-09] MEDS ORDERED: ETOMIDATE 20 MG/10 ML VIAL IVP ONE (15:50)
--- NOTE | 2019-08-09 16:00 | NUR ---
PT INTUBATED WITH 7.5 ETT @ 24 AT [facility] BY DR. MARTIN. B/S WAS PRESENT BILATERALLY COURSE.XRAY WAS COMPLETED AND ETT WAS 2 CM OVER THE LEXI. SX PT WITH MINIMAL AMOUNT OF THICK YELLOW SX. AMBU BAG AT BEDSIDE. VENT PLUGGED INTO RED OUTLET. WILL CONT. TO MONITOR PT OUTCOME.
--- NOTE | 2019-08-09 16:01 | NUR ---
Heather dunlap in EDM - 08/09/19 at 1650 by NEETU ET TUBE WITH [facility] VENTILATOR. SETTINGS: FI02 50%, VT 500 ML, RATE 12/MIN, FLOW 40 L/M, PEEP 5 CH H20, PMAX 40 CM H20
--- NOTE | 2019-08-09 16:07 | NUR ---
Heather dunlap in EDM - 08/09/19 at 1624 by NEETU PT INTUBATED AT [address] RICHARDSON, REPIRATORY AT BEDSIDE. ET TUBE 7.0 MEASURING 23
--- NOTE | 2019-08-09 16:07 | NUR ---
PT INTUBATED AT [address] RICHARDSON, REPIRATORY AT BEDSIDE. ET TUBE 7.5 MEASURING 24
--- NOTE | 2019-08-09 16:08 | NUR ---
ET TUBE WITH [facility] VENTILATOR. SETTINGS: FI02 50%, VT 500 ML, RATE 12/MIN, FLOW 40 L/M, PEEP 5 CH H20, PMAX 40 CM H20
[2019-08-09] MEDS ORDERED: PROPOFOL 1000 MG/100 ML PREMIX 100 ML IV ONE (16:15)
--- NOTE | 2019-08-09 16:54 | NUR ---
DR ALVAREZ AT BEDSIDE.
--- NOTE | 2019-08-09 17:16 | NUR ---
RT AT BEDSIDE.
[2019-08-09 17:19] LABS: BARBITURATE, URINE NEG. ng/ml (NEG <=200); BENZODIAZEPINE, URINE NEG. ng/mL (NEG <=200); CANNABINOID, URINE NEG. ng/mL (NEG <=50); COCAINE, URINE NEG. ng/mL (NEG <=300); OPIATE, URINE POS. ng/mL (NEG <=2000); PHENCYCLIDINE SCREEN,URINE NEG. ng/mL (NEG <=25)
--- NOTE | 2019-08-09 17:43 | NUR ---
PT RETURNED FROM CT VIA [facility]
--- NOTE | 2019-08-09 17:48 | NUR ---
PER DR. MARTIN, PT VENT SETTINGS WERE CHANGED TO 500,16,8, 50%.
[2019-08-09] MEDS: NACL 0.9% 1,000 ML IV SCH (19:09)
[2019-08-09] MEDS ORDERED: ONDANSETRON 4 MG/2 ML VIAL IVP PRN (19:10)
[2019-08-09] MEDS ORDERED: LORazepam 2 MG/ML VIAL IVP PRN (19:10)
--- NOTE | 2019-08-09 19:12 | NUR ---
Pt report given to REBECCA LEWIS. Transfer of care at this time.
--- NOTE | 2019-08-09 19:14 | NUR ---
RECEIVED BEDSIDE REPORT FROM JOSHUA CALZADA. ASSUMED CARE AT THIS TIME. PT SEEN WITH EYES CLOSED. VISIBLE CHEST RISE AND FALLED NOTED. VSS. WILL CONTINUE TO MONITOR.
--- NOTE | 2019-08-09 19:25 | NUR ---
PT OPENING EYES AND MOVING. PROPOFAL INCREASED TO 10MCG.
--- NOTE | 2019-08-09 19:38 | NUR ---
PT OPENING EYES AND MOVING. PROPOFAL INCREASED TO 15MCG.
--- NOTE | 2019-08-09 19:45 | NUR ---
[facility]
--- NOTE | 2019-08-09 19:45 | NUR ---
Patient will be admitted to care of Dr. Cavazos. Admited to ICU. Will go to room 1. Belongings list completed. Report to JOSHUA Maza. Transfer of care at this time
--- NOTE | 2019-08-09 19:50 | NUR ---
TRANSFERED PT FROM ER TO ICU WITH NO INCIDENT. ETT IS IN PLACE AND SECURED WITH ANCHOR-FAST. VENT IT CONNECTED TO RED OUTLET. ALARMS AUDIBLE. AMBU BAG AT BEDSIDE. NO SOB OR DISTRESS NOTED. WILL CONTINUE TO MONITOR. VENT SETTINGS CHANGED PER NEW ORDER FROM MD ALVAREZ. NEW VENT SETTINGS CHARTED.
--- NOTE | 2019-08-09 20:00 | NUR ---
PATIENT ANOx0, ON PROPOFOL DRIP, RASS -3, WITH DRY WEIGHT OF 68KG. PATIENT WITHDRAWS TO LIGHT PAIN, CANNOT MAKE NEEDS KNOWN OR FOLLOW SIMPLE COMMANDS, PERRL 3MM SLUGGISH. SKIN IS WARM AND DRY, AFEBRILE, 97.8. PACEMAKER TO UPPER LEFT SIDE CHEST. HEART RATE-90 BPM, BLOOD PRESSURE-111/81, RR-13, E7WRC-00%, FLACC 0. RIGHT EJ PERIPHERAL IV, 18G, INFUSING PROPOFOL-15MCG/KG/MIN-(6.12 ML/HR). LINE IS PATENT WITHOUT SYMPTOMS. LEFT WRIST PERIPHERAL IV, 20G, SALINE LOCKED. FLUSHED AND PATENT. PATIENT HAS 7.5 ETT TO VENT, FI02 50%, TV 500, RATE 16, PEEP 8. LUNG SOUNDS RHONCHI IN UPPER LOBES, DIMINISHED AT BASES, SYMMETRICAL CHEST RISE. S1S2, SR ON MONITOR. BOWEL SOUNDS ACTIVE, ABDOMEN IS SOFT AND NONTENDER. SACRUM HAS SMALL SCAB. RIGHT LOWER LEG OPEN WOUND, DRESSING IN PLACE, CLEAN AND DRY. RIGHT HEEL CLOSED PRESSURE WOUND. LOWER EXTREMITIES CONTRACTED. PATIENT IS INCONTINENT, SADA PADS IN PLACE. BILATERAL SOFT WRIST RESTRAINTS IN PLACE, SKIN AND CIRCULATION IN GOOD CONDITION. HOB 30 DEGREES, SIDERAILS UP, BED LOCKED AND IN LOWEST POSITION. CONTACT ISOLATION PRECAUTIONS IN PLACE, WILL CONTINUE TO MONITOR
--- NOTE | 2019-08-09 21:15 | NUR ---
MADE A CALL TO PATIENTS FAMILY MEMBER-JAE GUPTA, LEFT A VOICE MESSAGE
--- NOTE | 2019-08-09 21:25 | NUR ---
LEFT WRIST PERIPHERAL IV 20G HAS RESISTANCE WHEN FLUSHED, PATIENT WITHDRAWS TO PAIN. IV SITE NOT PATENT, REMOVED IV, CATHETER INTACT. ATTEMPTED PERIPHERAL IV INSERTION TWICE, UNSUCCESSFUL, DESPITE USING VEIN FINDER, WILL HAVE CHARGE NURSE ATTEMPT IV INSERTION.
[2019-08-09] MEDS ORDERED: PIPERACILLIN/TAZOBACTAM 2.25 GM VIAL IV ONE (21:57)
--- NOTE | 2019-08-09 22:31 | NUR ---
CRITICAL LAB: TROPONIN 0.210, WILL NOTIFY
[2019-08-09] MEDS: FUROSEMIDE 40 MG/4 ML VIAL IVP SCH (22:38)
--- NOTE | 2019-08-09 23:38 | NUR ---
DR. LEWIS MADE AWARE OF HIGH TROPONIN LEVEL OF 0.210, NO NEW ORDERS AT THIS TIME
--- NOTE | 2019-08-09 23:43 | NUR ---
SPOKE WITH , MADE AWARE THAT PATIENT ONLY HAS ONE PATENT IV LINE, AND INFUSING PROPOFOL, UNABLE TO INSERT OTHER PERIPHERAL LINES. OK TO ATTEMPT IV INSERTION ON FEET IF INDICATED. ORDERS FOR PICC/CENTRAL LINE INSERTION, WILL CARRY OUT. MD MADE AWARE IF IV INSERTION IS UNSUCCESSFUL, RN IS UNABLE TO START IV FLUIDS AND ANTIBIOTICS FOR THIS SHIFT. PIECE DYER MADE AWARE, WILL CONTACT TEAROOM HOSTESS PICC LINE NURSE.
--- NOTE | 2019-08-09 23:49 | NUR ---
called PICC RN and left a message for PICC Line anna
--- NOTE | 2019-08-09 23:56 | NUR ---
PHONE CALL TO PTS FAMILY,JAE GUPTA; LEFT MESSAGE TO CALL BACK NURSE FOR CONSENT(PICC LINE)
[2019-08-10] VITALS (107 sets, daily range): BP systolic 94–153; BP diastolic 18–103
--- NOTE | 2019-08-10 00:02 | NUR ---
PHONE CALL TO RJ BASILIO; PERSON TO NOTIFY ,AFTER CALLING JAE GUPTA TWICE. IT SAYS PHONE DISCONNECTED.([phone]) ([phone]); HOME PHONE, NOT IN SERVICE
--- NOTE | 2019-08-10 00:15 | NUR ---
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 RECEIVED TELEPHONE CONSENT, TWO PERSON VERIFICATION FOR PICC/CENTRAL LINE INSERTION AND RESTRAINTS. 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 NOT PATIENT, PATIENT INTUBATED AND SEDATED
--- NOTE | 2019-08-10 00:30 | NUR ---
VAP ORAL CARE PROVIDED, SMALL AMOUNT OF WHITE/CREAMISH SECRETIONS SUCTIONED. TOLERATED WELL. SKIN & CIRCULATION ASSESSED, SKIN INTACT. REPOSITIONED PATIENT
[2019-08-10] MEDS: HYDRAGUARD CREAM TP SCH ×2 (01:31→12:50)
--- NOTE | 2019-08-10 02:00 | NUR ---
PATIENT RESTING WELL, TURNED AND REPOSITIONED, OFFLOAD BONY PROMINENCES AND APPLIED PILLOWS TO PREVENT SKIN BREAKDOWN. BREATHING IS UNLABORED, ON PROPOFOL DRIP. CONTINUE TO MONITOR
--- NOTE | 2019-08-10 03:10 | NUR ---
DECREASED FIO2 TO 28%. RN AND CHARGE NURSE AWARE. PT'S SPO2 IS 100%. NO SOB OR DISTRESS NOTED. WILL CONTINUE TO MONITOR.
--- NOTE | 2019-08-10 04:40 | NUR ---
SUCCESSFULLY INSERTED PERIPHERAL IV, LEFT FOREARM 20G, FLUSHED, PATENT, NO SYMPTOMS. ABLE TO START IV FLUIDS AND IV ANTIBIOTICS.
[2019-08-10] MEDS: NACL 0.9% 1,000 ML IV SCH ×2 (04:44→19:35)
[2019-08-10] MEDS: PIPERACILLIN/TAZOBACTAM 2.25 GM in DEXTROSE 5% 50 ML IV SCH ×5 (04:51→20:36)
--- NOTE | 2019-08-10 05:45 | NUR ---
SPONGE BATH, VAP ORAL CARE, AND MOLINA CATHETER CARE PROVIDED. PATIENT TOLERATED WELL. SKIN NOT INTACT, SACRUM HAS SMALL WOUND, HEALING, SCABBING IS NOTED. LEFT OPEN TO AIR, APPLIED HYDRAGAURD. DRESSING TO RIGHT LOWER LEG IS DRY AND INTACT. PATIENT IS ETT TO VENT ACVC 12, FI02 28%, TV 500, PEEP 5. RIGHT EJ 18G, PATENT, INFUSING PROPOFOL-20MCG/KG/MIN (8.16 ML/HR) LEFT FOREARM PERIPHERAL IV 20G INFUSING IV FLUIDS NS @ 70ML/HR. MOLINA CATHETER IN PLACE, YELLOW SLIGHTLY CLOUDY URINE NOTED. BED IS LOCKED AND IN LOW POSITION, SOFT WRIST RESTRAINTS IN PLACE, HOB 30 DEGREES. FLACC 0 CONTINUE CLOSE MONITORING
[2019-08-10 06:27] LABS: BASOPHILS % (AUTO) 0.3 % (0.0-2.0); EOSINOPHILS # (AUTO) 0.2 K/uL (0-0.4); EOSINOPHILS % (AUTO) 2.3 % (0.0-4.0); HEMATOCRIT 28.2 % (36-48); HEMOGLOBIN 8.6 g/dL (12.0-16.0); LYMPHOCYTES # (AUTO) 2.3 K/uL (2.5-16.5); LYMPHOCYTES % (AUTO) 28.2 % (20.5-51.1); MEAN CORPUSCULAR HEMOGLOBIN 25 pg (27-31); MEAN CORPUSCULAR HGB CONC 31 g/dL (33-37); MEAN CORPUSCULAR VOLUME 82.4 fL (80-94); MONOCYTES # (AUTO) 0.7 K/uL (0.8-1.0); MONOCYTES % (AUTO) 9.3 % (1.7-9.3); NEUTROPHILS # (AUTO) 4.8 K/uL (1.8-7.7); NEUTROPHILS % (AUTO) 59.9 % (42.2-75.2); PLATELET COUNT (AUTO) 293 K/uL (140-450); RED BLOOD CELL COUNT(AUTO) 3.43 MIL/uL (4.20-5.40); RED CELL DISTRIBUTION WIDTH 21.9 % (11.6-13.7); WHITE BLOOD COUNT (AUTO) 8.1 K/uL (4.8-10.8)
--- NOTE | 2019-08-10 06:50 | NUR ---
PT RESTING COMFORTABLE ON ORDERED VENT SETTINGS. PT SPO2 100% ON 28% FIO2. NO RESP DISTRESS NOTED. ETT IS SECURED VIA ANCHORFAST, RESC. BAG AT BEDSIDE, ALARMS ON AND FUNCTIONAL, VENTILATOR PLUGGED INTO RED OUTLET. WILL CONTINUE TO MONITOR.
[2019-08-10 06:52] LABS: ALBUMIN 2.4 g/dL (3.4-5.0); ANION GAP 16.1 (8-16); POTASSIUM 4.1 mmol/L (3.5-5.1); TOTAL BILIRUBIN 0.8 mg/dL (0.0-1.0)
--- NOTE | 2019-08-10 07:20 | NUR ---
BEDSIDE REPORT RECEIVED FROM PM SHIFT RN, PT SEDATED ON PROPOFOL DRIP, RASS -3, DRY WEIGHT 68 KG, ETT TO VENT, VENT SETTINGS ARE ACVC MODE, RATE 12, FIO2 28%, TIDAL VOLUME 500, PEEP 5, LUNG SOUNDS CLEAR, VITAL SIGNS STABLE, PACED SINUS RHYTHM WITH PVCS ON MONITOR, S1 S2 HEARD, PULSES PALPABLE TO ALL EXTREMITIES, SOFT WRIST RESTRAINTS BILATERALLY, NO INJURY NOTED, OGT TUBE IN PLACE, PLACEMENT CONFIRMED, ABDOMEN SOFT ROUND AND NON TENDER, ACTIVE BOWEL SOUNDS, CAP REFILL LESS THAN 2 SECONDS, NO EDEMA NOTED, OPEN WOUND ON RIGHT LOWER LEG, COVERED WITH DRESSING, RIGHT HEEL DRY SCAB, DRY SCAB NOTED ON SACRUM. ORAL CARE PROVIDED, HOB 30 DEGREES, BED LOCKED IN LOWEST POSITION.
[2019-08-10] MEDS: PROPOFOL 1000 MG/100 ML PREMIX 100 ML IV PRN ×2 (07:55→15:33)
--- NOTE | 2019-08-10 08:05 | NUR ---
NADIR BASILIO (PERSON TO NOTIFY) STATED HE GAVE PT'S PREVIOUS DISCHARGE PAPERWORK TO [facility] AND HE WANTS THEM BACK. CALLED ER TO FIND OUT IF PAPERWORK WAS LEFT THERE. PER PERMANENT WAVER, NO SUCH PAPERWORK RECEIVED FROM [facility]. NADIR BASILIO MADE AWARE. Addendum: 08/10/19 at 1749 by Omar Kim RN PER NADIR, HE WILL NOT BE ABLE TO COME TODAY TO SIGN ADMISSION FORMS.
--- NOTE | 2019-08-10 08:23 | NUR ---
PATIENT HAS BEEN SCREENED AND CATEGORIZED HIGH NUTRITION RISK. PATIENT WILL BE SEEN WITHIN 1-2 DAYS OF ADMISSION. 08/10/19-08/11/[address]
[2019-08-10] MEDS: ASPIRIN 81 MG TAB.CHEW PO SCH (08:31)
[2019-08-10] MEDS: PANTOPRAZOLE 40 MG INJ VIAL IVP SCH (08:33)
[2019-08-10] MEDS: FUROSEMIDE 40 MG/4 ML VIAL IVP SCH ×2 (08:33→20:35)
[2019-08-10] MEDS: ENOXAPARIN 40 MG/0.4 ML SYR SUBQ SCH (08:34)
[2019-08-10] MEDS ORDERED: FUROSEMIDE 40 MG/4 ML VIAL IVP SCH (09:00)
[2019-08-10] MEDS ORDERED: THERAHONEY WOUND DRESSING TP SCH (09:00)
--- NOTE | 2019-08-10 09:08 | NUR ---
RECEIVED CALL FROM ROYER, PICC LINE RN. PER ROYER, CALL HIM AT [phone] AFTER CONSENT FORM SIGNED BY .
--- NOTE | 2019-08-10 10:05 | NUR ---
DR. ALVAREZ ORDERED TO HOLD PICC LINE INSERTION FOR NOW.
--- NOTE | 2019-08-10 10:05 | NUR ---
DR. ALVAREZ INTO SEE PT. UPDATED PT STATUS. MADE AWARE OF LAB RESULTS. ORDERED TO HOLD PROPOFOL FOR WEANING TRIAL. HELD PROPOFOL AT 0955. RT MADE AWARE. ORDERED PT,INR AND PTT.
--- NOTE | 2019-08-10 10:08 | NUR ---
RT AT THE BEDSIDE.
--- NOTE | 2019-08-10 10:11 | NUR ---
PLACED PT ON SBT CPAP 10 PEEP 5 FIO2 28%.
--- NOTE | 2019-08-10 10:19 | NUR ---
DISCHARGE PLANN[age] YRS OLD FEMALE ADMITTED FROM HOME WITH A DX OF RESP FAILURE /ALOC . PT HAS A HX OF COPD, CHF , A-FIB .UP ON ADMISSION RAPID A-FIB , O2 SAT 80% ,PT INTUBATED ON PROPOFOL DRIP AND LASIX ,RECEIVED AMIODARONE WELL ZOSYN. PLAN CARDIOLOGY CONSULT WITH DR JOSHUA Quintanilla DC PLAN TO GO BACK HOME UPON DISCHARGE. Addendum: 08/10/19 at 1130 by Carmen Santiago CM Call made to [facility] and spoke to Genie Medrano to request an auth for in-patient services as [facility] had only approved Obs during the admission process. Brandee confirmed [facility] received updated clinicals. Per Genie at [place], no tracking number can be provided yet until records are reviewed. A notification will be faxed to [facility]. Carmen Santiago, [facility] Ext [phone]
--- NOTE | 2019-08-10 10:21 | NUR ---
PT NOT TOLERATING WEANING TRIAL. HR INCREASED, LOW TIDAL VOLUMES, PT BLOOD PRESSURE INCREASED, PT AGITATED AND BITING AND GAGGING ON THE TUBE, UNABLE TO FOLLOW COMMANDS, PT HAD A HIGH RR AND WOB INCREASED.
--- NOTE | 2019-08-10 10:25 | NUR ---
PT WAS ON WEANING TRIAL FOR 10 MIN. PT WAS NOT ABLE TO TOLERATE WEANING TRAIL. GOT TACHYPNEIC, TACHYCARDIC, BIT ETT TUBE. RESUMED PROPOFOL DRIP AT THE SAME RATE. RT AT THE BEDSIDE.
--- NOTE | 2019-08-10 10:37 | NUR ---
SPOKE TO DR ALVAREZ ON THE PHONE AND INFORMED HIM OF PT STATUS. PER PHYSICIAN VIA PHONE PT PLACED BACK ON A/C.
[2019-08-10 10:40] LABS: PROTHROMBIN TIME 11.3 secs (10.8-13.4)
--- NOTE | 2019-08-10 10:55 | NUR ---
PICC LINE NURSE, ROYER, MADE AWARE THAT DR. ALVAREZ ORDERED TO HOLD PICC LINE INSERTION AT THIS TIME.
--- NOTE | 2019-08-10 11:00 | NUR ---
DR. LEWIS IN TO SEE PT. UPDATED PT STATUS. MADE AWARE OF LABS AND EKG RHYTHM. HOME MEDS REVIEWED BY DR. LEWIS. STARTED TAB METOPROLOL AND AMIODARONE. WILL CARRY OUT ORDER.
--- NOTE | 2019-08-10 11:00 | NUR ---
WOUND CARE EVALUATION NOTE: REASON FOR EVALUATION: RLE WOUND SKIN ASSESSMENT DONE WITH THIS 64 Y/O FEMALE PT ADMITTED TO [facility] WITH CHRONIC VASCULAR ULCER AND SACRALCOCCYX PRESSURE ULCER. PT IS INTUBATED, PT SKIN IS WARM AND DRY. BLE CONTRACTURES, NO EDEMA. PLAN OF CARE DISCUSSED WITH PRIMARY RN. INTEGUMENTARY: -RLE VASCULAR ULCER RLE 9X22.5X 0.1CM, WOUND BED IS 100% GRANULATING TISSUE, MOIST, NO ODOR, WOUND EDGE FLAT RE-EPITHELIUM TISSUE, DEBBIE WOUND SKIN MOIST INTACT -PRESSURE ULCER STAGE 2 TO SACRALCOCCYX 1.3X0.7CM SUPERFICIAL DEPTH WITH 0.3X0.3 CM THIN LOOSE BROWN SCABS -RIGHT HEEL 4X3CM THIN SCAB, DEBBIE WOUND HEALED SCAR INTACT RECOMMENDATIONS: -CLEANSE RIGHT LOWER LEG WOUND WITH WOUND CARE SOLUTIONS, PAT DRY, APPLY THERAHONEY SHEET, TO WOUND BED AND HYDRAGUARD TO DEBBIE WOUND DRESSING COVER WITH DRY DRESSING AND WRAP WITH KERLIX ROLLS QM-W-F AND PRN IF SOILING -CLEANSE SACRALCOCCYX WITH SOAP AND WATER, PAT DRY, APPLY HYDRAGUARD BID AND PRN WITH SOILING. -APPLY OPTIFOAM TO SACRALCOCCYX QD AND PRN SOILING PREVENTION -OFFLOAD BILATERAL HEELS BY PLACING PILLOWS UNDER CALVES UNLESS OTHERWISE CONTRAINDICATED -PRESSURE REDISTRIBUTION SURFACE -TURN AND REPOSITION Q2H, OFFLOAD SACROCOCCYX AND R/L ISCHIUM WILL FOLLOW UP PT Q7-10 DAYS. PLEASE CONTACT WOUND CARE NURSE FOR ANY QUESTION AND CHANGE OF WOUND CONDITION.
--- NOTE | 2019-08-10 11:05 | NUR ---
WOUND NURSE AT THE BEDSIDE EVALUATING THE PT.
--- NOTE | 2019-08-10 11:14 | NUR ---
PRIOR ECHO ON 05-12-19. NOTIFIED DR. LEWIS. ECHO CANCELLED PER DR. ELWIS REQUEST.
[2019-08-10] MEDS: MORPHINE SULFATE 2 MG/ML SYR IVP PRN (12:04)
--- NOTE | 2019-08-10 13:07 | NUR ---
PT RESTING IN BED. NO SOB OR RESPIRATORY DISTRESS NOTED. CARE PROVIDED NEEDED. REPOSITIONED. IV SITE INTACT. CONTINUE ON PROPOFOL DRIP. RASS -3. CONTINUE AT THE SAME VENT SETTING. OFFLOADED PRESSURE AREAS.
--- NOTE | 2019-08-10 13:30 | NUR ---
[place] Note: Basic Screen: Yes High Risk DC Screen Paola: RJ VALENCIA Home Relationship: SIGNIFICANT OTHER/POA Pre-Admission Living Arrangements: Lives with Other Prior ADL Needs Assistance Current Home Health Name/Tel: N/A Current DME/02 Name/Tel: [employer], WALKER Current Hospice Name/Tel: N/A Current Dialysis Name/Tel: N/A Healthcare Decision Maker: Other Other: SIGNIFICANT OTHER Advance Directive No - REFUSED Physician Orders for Life Sustaining Treatment Form No Patient/Family Have Educational Needs No Information Taught: Community Resources Person Taught: Significant Other Teaching Tools: Verbal Factors Affecting Learning: None Participation Level: Refused Evaluation: Verbalizes Understanding Needs Additional Education: No Discipline: Case Mgt/Social Svcs Tentative Discharge Plan/Destination: No Needs Identified Will require assistance post discharge: No Referred to Naturopathic Oncology Provider: No Tentative Discharge Plan Summary: Patient is a 64 year old female admitted for respiratory failure and ALOC. Patient has medical hx of chronic congestive heart failure, COPD, CHF, hypertension, hx of pacemaker, atrial fibrillation, on anticoagulation, hyperlipidemia, and chronic pain syndrome. Patient was admitted from home. SRAVANI contacted patient's significant other, Rj Valencia to complete assessment because patient is currently intubated [phone]. SRAVANI verified demographics with Rj. Per Rj, he is POA of patient. Rj stated that patient needs assistance with ADLs and utilizes a wheelchair and walker. Rj stated that patient has no hx of mental health and substance abuse. SRAVANI provided education on advanced directive but Rj refused. Rj stated that patient's tentative plan after discharge is to return home or to go to SNF. SRAVANI informed Rj that patient going to a SNF would depend on physician and medical necessity. Rj verbalized understanding and stated that her returning home would be most probable. No further needs identified. Signature: DEMETRA Mauro Date: Aug 10, 2019 Time: 13:29
--- NOTE | 2019-08-10 14:18 | NUR ---
08/10/19 RD INITIAL ASSESSMENT COMPLETED PLEASE REFER TO NUTRITION ASSESSMENT UNDER CARE ACTIVITY FOR ESTIMATED NUTRITIONAL NEEDS. 1. RECOMMEND TWO JAKOB HN @ 35 ML/HR X 24 HOURS WITH PROSOURCE ONCE DAILY WITH FREE WATER FLUSH OF 65 ML Q4H -THIS WILL PROVIDE 1740 KCAL AND 85 GM OF PROTEIN DAILY, WHICH WILL MEET 100% OF ESTIMATED NEEDS. 2. RECOMMEND VITAMIN C 200 MG DAILY FOR PRESSURE ULCER 3. IF/WHEN PATIENT IS EXTUBATED FROM VENT, CONSIDER A SWALLOW EVALUATION FOR PO DIET 4. RD TO FOLLOW-UP 2-3 DAYS, HIGH RISK TREY JESUS RD
--- NOTE | 2019-08-10 15:03 | NUR ---
PT ON SEDATION, RASS -3, RESTING IN BED. FLACC 0. IV SITE PATENT, INTACT. FIO2 24%. SINUS RHYTHM TO SINUS TACHYCARDIAC ON MONITOR. DEMAND PACING. FLUCTUATING IRREGULAR RHYTHM. SAFETY PRECAUTIONS IN PLACE.
--- NOTE | 2019-08-10 15:08 | NUR ---
O2 TITRATED TO 24%, SPO2 100%. WILL MONITOR.
--- NOTE | 2019-08-10 16:08 | NUR ---
ON MONITOR SHOWING FLUCTUATING HR 90 UP TO 200. LEADS AND EKG CABLE CHANGED. ON STRIP SHOWING DEMAND PACING WITH 110. RADIAL PULSE NOTED 64-70. DR. LEWIS CALLED. MADE AWARE OF HR AND RHYTHM. DOCTOR SAID FOLLOW EKG STRIP NOT NUMBER ON THE MONITOR. NO ANY DISTRESS NOTED ON PT. BP 115/78 AT THIS TIME. CONTINUE ON SEDATION. RASS -3. MECHANICAL SERVICE TECHNICIAN MADE AWARE OF THE SITUATION AND PT STATUS. CONTINUE TO MONITOR.
--- NOTE | 2019-08-10 16:18 | NUR ---
RT AT THE BEDSIDE FOR EKG.
--- NOTE | 2019-08-10 16:20 | NUR ---
12 LEAD EKG SHOWS HR 106, VENTRICULAR-PACED COMPLEXES. ON MONITOR, HR FLUCTUATES FROM 80 UP TO 210. PT IS SEDATED, RASS -3. ETT TO VENT: A/C VC FIO2 24%, VT 500, RR 12, PEEP 5. BP 115/88, RR 12, SPO2 100% AT THIS TIME. BREATHING EVEN AND UNLABORED. NO SOB OR OTHER SIGNS OF ACUTE DISTRESS NOTED. SAFETY PRECAUTIONS IN PLACE. WILL CONTINUE TO MONITOR.
--- NOTE | 2019-08-10 17:10 | NUR ---
REPOSITIONED. OGT IN PLACE. RESIDUAL 0. STARTED OGT FEEDING. HOB ELEVATED. CONTINUE ON PROPOFOL DRIP. RASS -3. FLACC 0. MONITOR SHOWS SINUS ARRHYTHMIA TO PACED RHYTHM. NO RESPIRATORY DISTRESS NOTED. ON CLOSE MONITORING.
--- NOTE | 2019-08-10 17:24 | NUR ---
PT REMAINS SEDATED, RESTING COMFORTABLY ON AC, 12, 500, +5, 24%. NO RESPIRATORY DISTRESS OR SOB NOTED AT THIS TIME. TUBE IS INTACT AND SECURED VIA ANCHORFAST AND VENTILATOR ALARMS ARE ON AND FUNCTIONAL. NURSE AWARE OF FLUCTUATING TACHYCARDIC HR.
--- NOTE | 2019-08-10 19:14 | NUR ---
ENDORSED TO WORK AND FAMILY LIFE CONSULTANT RN FOR CONTINUITY OF CARE. PT ON STABLE CONDITION.
--- NOTE | 2019-08-10 19:15 | NUR ---
RECEIVED REPORT FROM DAYSHIFT NURSE AT PATIENTS BEDSIDE, NO SIGNS OF DISTRESS, WILL FOLLOWUP CARE.
--- NOTE | 2019-08-10 19:30 | NUR ---
TURNED AND REPOSITIONED PATIENT, PROVIDED VAP ORAL CARE. RT AT BEDSIDE. SMALL AMOUNT OF THICK YELLOW/CREAMISH SECRETIONS NOTED IN SUCTION TUBE. HEART RATE ELEVATING TO SINUS TACHYCARDIA, REPLACED ELECTRODES. HEART RATE BACK WITHIN NORMAL LIMITS.
--- NOTE | 2019-08-10 19:35 | NUR ---
RECEIVED PT INTUBATED WITH ETT SIZE 7.5 SECURED WITH ANCHOR-FAST 24 CM @ THE LIP AND VENT SETTINGS ORDERED. ALARMS ARE SET AND AUDIBLE; VENT PLUGGED IN RED OUTLET; BVM AT THE BEDSIDE; HOB>30. BREATH SOUNDS: COARSE ON THE UPPER LOBES AND DIMINISHED ON THE LOWER BASES. SUCTIONED SMALL SELF THICK SECRETIONS FROM ETT. NO RESPIRATORY DISTRESS NOTED AT THIS TIME. WILL CONTINUE TO MONITOR PT.
--- NOTE | 2019-08-10 20:00 | NUR ---
RECEIVED PATIENT RESTING COMFORTABLY IN BED, EYES CLOSED, OPENS EYES TO LIGHT SHAKING/PAIN AND TO VOICE. PERRL SLUGGISH, 3MM. PATIENT SEDATED ON PROPOFOL DRIP, RASS -3. DRY WEIGHT RECORDED AT 68KG. ANOx0. PATIENT HAS 7.5 ETT, 24 CM AT LIP LINE, CONNECTED TO VENT, ACVC 12, FI02 24%, TV 500, PEEP 5. LUNG SOUNDS SLIGHTLY COARSE/CRACKLES AT UPPER LOBES, LOWER LOBES DIMINISHED. SATURATIONS 100%. BREATHING IS UNLABORED. S1S2, HEART RATE IS ELEVATED 110 BPM. LEFT UPPER CHEST PACEMAKER IN PLACE. RIGHT EJ PERIPHERAL IV, 18G, PATENT AND INFUSING PROPOFOL-30MCG/KG/MIN (12.24 ML/HR). LEFT FOREARM PERIPHERAL IV 20G. FLUSHED, PATENT, NO SYMPTOMS, INFUSING NS @ 70ML/HR. BOWEL SOUNDS ACTIVE IN ALL QUADRANTS, ABDOMEN IS SOFT AND NONTENDER. LOWER EXTREMITIES CONTRACTED, OPEN WOUND TO RIGHT LOWER LEG. DRESSING IS DRY AND INTACT. RIGHT HEEL HAS SMALL SCAB. SACRAL SCAB NOTED, SMALL IN SIZE, BARRIER CREAM APPLIED AND OPTIFOAM DRESSING IN PLACE. BILATERAL SOFT WRIST RESTRAINTS IN PLACE, RESTRAINTS SECURED WITH QUICK RELEASE KNOTS. SKIN AND CIRCULATION WITHIN NORMAL LIMITS. MOLINA CATHETER IN PLACE, CLEAR YELLOW URINE NOTED. HEEL PROTECTORS IN PLACE. BED LOCKED AND IN LOW POSITION, SIDERAILS UP, HOB 30 DEGREES. WILL CONTINUE TO MONITOR.
[2019-08-10] MEDS: METOPROLOL 25 MG TAB PO SCH (20:36)
[2019-08-10] MEDS: AMIODARONE 200 MG TAB PO SCH (20:36)
--- NOTE | 2019-08-10 21:00 | NUR ---
SCHEDULED MEDICATIONS ADMINISTERED, OGT CONFIRMED BY AIRCHECK/AUSCULTATION. RESIDUALS 0ML, INCREASED TUBE FEEDING RATE TO 20ML/HR. HOB > 30 DEGREES.
[2019-08-11] VITALS (104 sets, daily range): BP systolic 74–121; BP diastolic 34–82
--- NOTE | 2019-08-11 00:05 | NUR ---
PATIENTS SKIN AND CIRCULATION IS ASSESSED AT SOFT WRIST RESTRAINTS, NO SIGNS OF INJURIES, REMOVED RESTRAINTS FOR 15 MINUTES, TURNED AND REPOSITIONED AND OFFLOAD BONY PROMINENCES.
--- NOTE | 2019-08-11 00:15 | NUR ---
VAP ORAL CARE PROVIDED
--- NOTE | 2019-08-11 01:00 | NUR ---
CHECKED RESIDUALS FOR OGT FEEDING, < 10ML. INCREASED FEEDING TO 35ML FOR GOAL.
[2019-08-11] MEDS: PROPOFOL 1000 MG/100 ML PREMIX 100 ML IV PRN ×3 (01:26→18:34)
--- NOTE | 2019-08-11 01:37 | NUR ---
SUCTIONED SMALL AMOUNT OF THICK SELF SECRETIONS FROM ETT.
[2019-08-11] MEDS: PIPERACILLIN/TAZOBACTAM 2.25 GM in DEXTROSE 5% 50 ML IV SCH ×3 (04:44→20:43)
--- NOTE | 2019-08-11 05:27 | NUR ---
LAB AT BEDSIDE
[2019-08-11 05:57] LABS: ALBUMIN 2.3 g/dL (3.4-5.0); ANION GAP 15.7 (8-16); CARBON DIOXIDE 23.1 mmol/L (21-32); CREATININE 2.8 mg/dL (0.6-1.3); POTASSIUM 3.8 mmol/L (3.5-5.1); TOTAL BILIRUBIN 0.6 mg/dL (0.0-1.0)
--- NOTE | 2019-08-11 06:34 | NUR ---
REC'D PT ON CARESCAPE VENT SETTINGS AC 12 VT 500 PEEP 5 FIO2 24% ALARMS ON AND AUDIBLE AND AMBU BAG AT SIDE OF VENT AND VENT IS PLUGGED INTO RED OULET, NO HHN NEEDED AT THIS TIME, B\S ARE COARSE BILATERALLY, SNX PT SMALL AMT OF WHITE SECRETIONS, PT IS ORALLY INTUBATED WITH 7.5 ET TUBE SECURED WITH ANCHOR FAST AT 24CM AT MIDLINE AND PT IS SLEEPING WITH NO SIGNS OF DISTRESS NOTED
[2019-08-11 06:49] LABS: BASOPHILS # (AUTO) 0.1 K/uL (0.00-0.22); BASOPHILS % (AUTO) 1.2 % (0.0-2.0); EOSINOPHILS # (AUTO) 0.4 K/uL (0-0.4); EOSINOPHILS % (AUTO) 4.1 % (0.0-4.0); HEMATOCRIT 29.9 % (36-48); HEMOGLOBIN 9.2 g/dL (12.0-16.0); LYMPHOCYTES # (AUTO) 1.8 K/uL (2.5-16.5); MEAN CORPUSCULAR HEMOGLOBIN 25 pg (27-31); MEAN CORPUSCULAR HGB CONC 31 g/dL (33-37); MEAN CORPUSCULAR VOLUME 82.4 fL (80-94); MONOCYTES # (AUTO) 0.8 K/uL (0.8-1.0); NEUTROPHILS # (AUTO) 5.9 K/uL (1.8-7.7); PLATELET COUNT (AUTO) 320 K/uL (140-450); RED BLOOD CELL COUNT(AUTO) 3.63 MIL/uL (4.20-5.40); RED CELL DISTRIBUTION WIDTH 21.7 % (11.6-13.7); WHITE BLOOD COUNT (AUTO) 8.9 K/uL (4.8-10.8)
--- NOTE | 2019-08-11 07:30 | NUR ---
RECEIVED PT FROM PM NURSE. PT ON PROPOFOL DRIPS AT 30 MCG/KG/MIN BASED ON DRY WEIGHT 68 KG TO RIGHT EJ. RASS-3. BEDSIDE MONITOR SHOWS SR. ETT TO VENT WITH SETTING FIO2=24%, YH=756, AC=12, PEEP=5. NO S/S OF RESPIRATORY DISTRESS NOTED. PT ALSO HAS IV TO LEFT FOREARM # 20 RUNNING 0.9 NS AT 70 CC/HR. PT HAS SOFT RESTRAIN TO BOTH WRIST, CIRCULATION CHECKED WELL. PT ALSO HAS OG TUBE FEEDING RUNNING AT 35 CC/HR. F/C IN PLACE WITH CLEAR YELLOW URINE NOTED. PT'S EXTREMITIES ARE CONTRACTED. SKIN NON INTACT( SEE WOUND ASSESSMENT). HOB ELEVATED , WILL CONTINUE TO MONITOR.
--- NOTE | 2019-08-11 08:00 | NUR ---
TURNED AND REPOSITIONED PT. ORAL CARE GIVEN. SUCTIONED PT WITH WHITE CREAMY SECRETION. WILL CONTINUE TO MONITOR.
[2019-08-11 08:06] LABS: NEUTROPHILS % (AUTO) 65.9 % (42.2-75.2)
[2019-08-11 08:07] LABS: LYMPHOCYTES % (AUTO) 19.8 % (20.5-51.1)
[2019-08-11] MEDS: FUROSEMIDE 40 MG/4 ML VIAL IVP SCH (08:11)
[2019-08-11] MEDS: PANTOPRAZOLE 40 MG INJ VIAL IVP SCH (08:11)
[2019-08-11] MEDS: ENOXAPARIN 40 MG/0.4 ML SYR SUBQ SCH (08:11)
[2019-08-11] MEDS: ASPIRIN 81 MG TAB.CHEW PO SCH (08:11)
[2019-08-11] MEDS: AMIODARONE 200 MG TAB PO SCH ×2 (08:40→21:00)
[2019-08-11] MEDS: METOPROLOL 25 MG TAB PO SCH ×2 (08:41→21:00)
[2019-08-11] MEDS ORDERED: NACL 0.45% 1,000 ML IV SCH (10:45)
--- NOTE | 2019-08-11 10:45 | NUR ---
DR. VALENZUELA IN TO CHECK PT. UPDATED PT'S CONDITION. PER DR. VALENZUELA, WE CAN DO SEDATION VACATION. CALLED RT.
--- NOTE | 2019-08-11 11:32 | NUR ---
PT OFF SEDATION SINCE 1045 NOW PLACED ON SBT MODE JOSHUA DALY NOTIFIED
--- NOTE | 2019-08-11 11:47 | NUR ---
PT FAILED WEANING TRIAL AND PLACED BACK ON AC MODE AND SEDATION TURNED BACK ON RN MALIKA NOTIFIED
[2019-08-11] MEDS: HYDRAGUARD CREAM TP SCH (13:00)
--- NOTE | 2019-08-11 17:00 | NUR ---
DR. LEWIS Y INTO CHECK PT, UPDATED PT'S CONDITION. NO NEW ORDER RECEIVED.
--- NOTE | 2019-08-11 17:30 | NUR ---
PAGED DR. SAVAGE FOR THE CONSULTATION. DR. KENNEY CONTINUITY CLERK. DR. KNENEY CALLED BACK AND UPDATED PT'S CONDITION. PER DR. KENNEY, HE WILL COME TO CHECK PT A LITTLE BIT LATER.
--- NOTE | 2019-08-11 18:15 | NUR ---
DR. KENNEY IN TO CHECK PT. UPDATED PT'S CONDITION. PER DR. KENNEY. D/C 1/2 NS AND INCREASED TUBE FEEDING WATER FLUSH TO 200 CC Q 6 HRS , ORDERS CARRIED OUT.
--- NOTE | 2019-08-11 18:45 | NUR ---
TUBE FEEDING REPLACED TO NEW ONE, SUPPLEMENT GIVEN. BED SHEET CHANGED. PT TOLERATED WELL.
--- NOTE | 2019-08-11 19:05 | NUR ---
ENDORSED PT TO PM SHIFT RN.
--- NOTE | 2019-08-11 19:05 | NUR ---
RECEIVED PT INTUBATED FOR ALTERED MENTAL STATUS WITH ETT SIZE 7.5 SECURED WITH ANCHOR-FAST 24 CM @ THE LIP AND VENT SETTINGS ORDERED. ALARMS ARE SET AND AUDIBLE; VENT PLUGGED IN RED OUTLET; BVM AT THE BEDSIDE; HOB>30. BREATH SOUNDS: COARSE ON THE UPPER LOBES AND DIMINISHED ON THE LOWER BASES. SUCTIONED SMALL WHITE FROTHY SECRETIONS FROM ETT AND SMALL AMOUNT OF WHITE SECRETIONS FROM THE MOUTH. NO RESPIRATORY DISTRESS NOTED AT THIS TIME. WILL CONTINUE TO MONITOR PT.
--- NOTE | 2019-08-11 19:45 | NUR ---
RECEIVED REPORT FROM DELILAH LEWIS. PT ON SEDATION, EYES CLOSED, OPENS TO LIGHT PAIN AND TO VOICE. PERRL SLUGGISH, 3MM. PATIENT SEDATED ON PROPOFOL DRIP 25 MCG/KG/MIN WITH RASS -3. DRY WEIGHT AT 68 KG. 7.5 ETT, 24 CM AT LIP LINE TO VENT,VENT SETTING AC RATE 12, FI02 24%, TV 500, PEEP 5. BILATERAL LUNGS SOUND CLEAR. PACEMAKER IN LEFT CHEST AREA . RIGHT EJ PERIPHERAL IV NO 18G AND LEFT FOREARM PERIPHERAL IV 20G. BOWEL SOUNDS ACTIVE IN ALL QUADRANTS, ABDOMEN IS SOFT AND NON TENDER. LOWER EXTREMITIES CONTRACTED, OPEN WOUND TO RIGHT LOWER LEG. DRESSING IS DRY AND INTACT. BILATERAL SOFT WRIST RESTRAINTS IN PLACE,RELEASE AND CHECK EVERY 2 HRS. SKIN AND CIRCULATION WITHIN NORMAL LIMITS. MOLINA CATHETER IN PLACE, CLEAR YELLOW URINE NOTED.GOOD F/C CARE GIVEN. KEPT CLEAN AND DRY.
--- NOTE | 2019-08-11 21:00 | NUR ---
ZOSYN IV GIVEN, AMIDORANE AND LOPRESSOR NOT GIVEN D/T B/P <100. PT LOOK CALM NO S/S ANY DISTRESS,NO SOB. REPOSITION PT FOR COMFORT.
--- NOTE | 2019-08-11 23:00 | NUR ---
PT CONTINUE ON SEDATION TOLERATING WELL. NO DISTRESS NOTED. KEPT CLEAN AND DRY.
[2019-08-12] VITALS (89 sets, daily range): BP systolic 89–132; BP diastolic 54–109
--- NOTE | 2019-08-12 01:45 | NUR ---
REPOSITION PT FOR COMFORT.
[2019-08-12] MEDS: PROPOFOL 1000 MG/100 ML PREMIX 100 ML IV PRN ×2 (02:44→12:57)
--- NOTE | 2019-08-12 03:00 | NUR ---
SPECIMEN FOR UA C&S COLLECTED AND SENT TO LAB
[2019-08-12 03:32] LABS: APPEARANCE,URINE CLEAR (CLEAR); BILIRUBIN,URINE NEGATIVE (NEGATIVE); BLOOD, URINE TRACE-I (NEGATIVE); COLOR,URINE YELLOW (YELLOW); LEUKOCYTE ESTERASE ,URINE TRACE (NEGATIVE); NITRITE, URINE NEGATIVE (NEGATIVE); PH,URINE 5.5 (5.0-9.0); UGLUCOSE NEGATIVE (NEGATIVE)
[2019-08-12 05:00] LABS: WBC,URINE 0-5 /HPF (0-5)
[2019-08-12 05:01] LABS: YEAST,URINE Many /HPF (None Seen)
[2019-08-12] MEDS: PIPERACILLIN/TAZOBACTAM 2.25 GM in DEXTROSE 5% 50 ML IV SCH ×3 (05:23→21:03)
--- NOTE | 2019-08-12 05:30 | NUR ---
AM MED GIVEN. AM CARE GIVEN. KEPT CLEAN AND DRY.
--- NOTE | 2019-08-12 06:54 | NUR ---
RECEIVED PT ON CARESCAPE ON DOCUMENTED SETTINGS, ALARMS ARE ON AND AUDIBLE, PTS ETT SIZE 7.5 IS SECURE 24 CM [address] FAST IN PLACE , PT IN HF QUIET PT IS RESTRAINED, BS CLEAR, BMV HOB. VENT PLUGGED INTO RED OUTLET , WILL CONTINUE TO MONITOR
--- NOTE | 2019-08-12 07:30 | NUR ---
ON [place]CE[place] 12500-24%, SEDATION WAS ON PROPOFOL 20MCG. PT WAS IN RASS -3. VS STABLE. PT WAS TRIED WEARNING LAST NIGHT BUT FAILED. PT WILL TRY AGAIN TODAY. NO ACUTE DISTRESS. KEEP CLOSELY WATCHING. Addendum: 08/12/19 at 1219 by Agency 03 RN RN PROPROFOL RUNNING 20MCG/MIN/KG ON WEIGHT 68KG.
--- NOTE | 2019-08-12 07:36 | NUR ---
TOTAL OUT PUT IS 1000 CC
--- NOTE | 2019-08-12 08:58 | NUR ---
rt at bedside to do sedation vacation.
--- NOTE | 2019-08-12 09:00 | NUR ---
PLACED PT ON SBT 10\5
[2019-08-12] MEDS: PANTOPRAZOLE 40 MG INJ VIAL IVP SCH (09:18)
[2019-08-12] MEDS: AMIODARONE 200 MG TAB PO SCH ×2 (09:18→21:03)
[2019-08-12] MEDS: ASPIRIN 81 MG TAB.CHEW PO SCH (09:19)
[2019-08-12] MEDS: METOPROLOL 25 MG TAB PO SCH ×2 (09:19→21:00)
[2019-08-12] MEDS: ENOXAPARIN 40 MG/0.4 ML SYR SUBQ SCH (09:25)
[2019-08-12 10:00] LABS: BASOPHILS # (AUTO) 0.1 K/uL (0.00-0.22); BASOPHILS % (AUTO) 0.7 % (0.0-2.0); EOSINOPHILS # (AUTO) 0.5 K/uL (0-0.4); HEMATOCRIT 30.1 % (36-48); HEMOGLOBIN 9.3 g/dL (12.0-16.0); LYMPHOCYTES # (AUTO) 1.7 K/uL (2.5-16.5); MEAN CORPUSCULAR HEMOGLOBIN 25 pg (27-31); MEAN CORPUSCULAR HGB CONC 31 g/dL (33-37); MEAN CORPUSCULAR VOLUME 82.1 fL (80-94); MONOCYTES # (AUTO) 0.8 K/uL (0.8-1.0); MONOCYTES % (AUTO) 8.9 % (1.7-9.3); NEUTROPHILS # (AUTO) 6.4 K/uL (1.8-7.7); PLATELET COUNT (AUTO) 291 K/uL (140-450); RED BLOOD CELL COUNT(AUTO) 3.67 MIL/uL (4.20-5.40); RED CELL DISTRIBUTION WIDTH 21.3 % (11.6-13.7); WHITE BLOOD COUNT (AUTO) 9.5 K/uL (4.8-10.8)
--- NOTE | 2019-08-12 10:00 | NUR ---
PT ON SBT FOR ONE HOUR NIF-9
[2019-08-12 10:41] LABS: ALBUMIN 2.3 g/dL (3.4-5.0); ANION GAP 16.5 (8-16); CARBON DIOXIDE 23.3 mmol/L (21-32); CREATININE 2.9 mg/dL (0.6-1.3); POTASSIUM 3.8 mmol/L (3.5-5.1); TOTAL BILIRUBIN 0.5 mg/dL (0.0-1.0)
[2019-08-12 11:07] LABS: EOSINOPHILS % (AUTO) 4.8 % (0.0-4.0); LYMPHOCYTES % (AUTO) 17.9 % (20.5-51.1); NEUTROPHILS % (AUTO) 67.7 % (42.2-75.2)
--- NOTE | 2019-08-12 11:40 | NUR ---
BMP RESULT CAME OUT. DR. KENNEY WAS CALLED AND REPORTED. GTUBE FEEDING WAS CHANGED: H2O FLUSH CHANGED TO Q3H FROM Q6H. CXRAY WAS ORDERED FOR TODAY.
[2019-08-12] MEDS: HYDRAGUARD CREAM TP SCH (12:50)
--- NOTE | 2019-08-12 17:00 | NUR ---
pagekarol Cavazos for critical report wound MRSA POSITIVE. STRAIGHT LINE EDGER. WILL F/U. Addendum: 08/12/19 at 1730 by Elizabeth Hatfield RN CALLED [phone].
--- NOTE | 2019-08-12 17:45 | NUR ---
CALLED BACK. ORDER RECEIVED.VANCOMYCIN PER PHARMACY.
[2019-08-12] MEDS ORDERED: VANCOMYCIN PER PHARMACY MC PRN (17:55)
[2019-08-12] MEDS ORDERED: FUROSEMIDE 40 MG/4 ML VIAL IVP SCH (18:00)
[2019-08-12] MEDS ORDERED: VANCOMYCIN 1,000 MG VIAL ONE (18:25)
[2019-08-12] MEDS ORDERED: VANCOMYCIN 1GM/DEXT 5% PREMIX 200 ML IV SCH ×2 (19:00→21:00)
--- NOTE | 2019-08-12 19:08 | NUR ---
RECEIVED PT INTUBATED FOR ALTERED MENTAL STATUS WITH ETT SIZE 7.5 SECURED WITH ANCHOR-FAST 24 CM @ THE LIP AND VENT SETTINGS ORDERED. ALARMS ARE SET AND AUDIBLE; VENT PLUGGED IN RED OUTLET; BVM AT THE BEDSIDE; HOB>30. BREATH SOUNDS: CLEAR ON THE UPPER LOBES AND COARSE ON THE LOWER BASES. SUCTIONED SMALL WHITE FROTHY SECRETIONS FROM ETT AND SMALL AMOUNT OF WHITE SECRETIONS FROM THE MOUTH. NO RESPIRATORY DISTRESS NOTED AT THIS TIME. WILL CONTINUE TO MONITOR PT
--- NOTE | 2019-08-12 19:15 | NUR ---
RECEIVED REPORT FROM AM NURSE, PT AT BED EYES CLOSED, PERRL 3MM, BRISK, PT LOCALIZES TO PAIN, HEART RATE REGULAR, SINUS RHYTHM WITH PACS, S1S2 PRESENT, CAP REFILL <3S, PULSES 2+ BILATERAL UPPER AND LOWER EXTREMITIES, LUNG SOUNDS CLEAR THROUGHOUT, DIMINISHED AT BASES, ABDOMEN, SOFT, ROUND, NONDISTENDED, OG TUBE IN PLACE, RUNNING 2 JAKOB HN AT 75 ML/HR, WATER FLUSH AT 200 ML/HR, Q3HR, NONTENDER, BLADDER, SOFT, ROUND, NONDISTENDED, NONTENDER, MOLINA CATHETER IN PLACE, CLEAR, YELLOW URINE DRAINING, SKIN NON INTACT, SEE WOUND ASSESSMENT, PT HAS GENERALIZED WEAKNESS, CONTRACTED ON BILATERAL LOWER EXTREMITIES, PT HAS BILATERAL SOFT, WRIST RESTRAINTS, GOOD CIRCULATION AND SKIN INTACT UNDERNEATH, PT HAS LEFT FA PERIPHERAL IV, 20 GAUGE, RUNNING NS AT TKO. PT HAS RIGHT EJ PERIPHERAL IV 18 GAUGE, RUNNING PROPOFOL AT 20 MCG/KG/MIN, DRY WEIGHT 68 KG. HOB 30 DEGREES, SIDE RAILS UP X2, BED AT LOWEST POSITION. Addendum: 08/12/19 at 2259 by Carlos Cao RN PT SEDATED RASS -3, Addendum: 08/12/19 at 2309 by Carlos Von Real L. Peace RN CORRECTION: 2 JAKOB HN RUNNING AT 35 ML/HR, WATER FLUSH 200 ML/HR
--- NOTE | 2019-08-12 20:30 | NUR ---
MEDICATIONS GIVEN. VAP ORAL CARE PERFORMED. SUCTIONED SCANT WHITE MUCOUS, PT REPOSITIONED, PT TOLERATED PROCEDURE WELL.
[2019-08-12] MEDS: CHLORHEXADINE GLUC 2% CLOTH TP SCH (21:03)
--- NOTE | 2019-08-12 22:45 | NUR ---
REPOSITIONED PT. PT AT BED EYES CLOSED, BREATHING REGULARLY ETT TO VENT. HOB 30 DEGREES, WILL CONTINUE TO MONITOR.
[2019-08-13] VITALS (106 sets, daily range): BP systolic 84–120; BP diastolic 47–88
--- NOTE | 2019-08-13 01:20 | NUR ---
PT AT BED EYES CLOSED BREATHING REGULARLY, ETT TO VENT, VS WNL.
--- NOTE | 2019-08-13 04:30 | NUR ---
VAP ORAL CARE PERFORMED, DRESSINGS CHANGED, AM CARE PROVIDED, PT TOLERATED PROCEDURE FAIRLY.
--- NOTE | 2019-08-13 04:53 | NUR ---
SUCTIONED SMALL WHITE THIN SECRETIONS FROM THE ETT AND SMALL WHITE THICK ORAL SECRETIONS. BYRNES AND HME CHANGED AT THIS TIME. PT STABLE ON THE VENT AND TUBE SECURED. PT TOLERATED PROCEDURE. NO RESPIRATORY DISTRESS NOTED.
[2019-08-13] MEDS: PIPERACILLIN/TAZOBACTAM 2.25 GM in DEXTROSE 5% 50 ML IV SCH ×3 (06:04→20:41)
--- NOTE | 2019-08-13 06:10 | NUR ---
RECEIVED PT ON CARESCAPE ON DOCUMENTED SETTINGS, ALARMS ARE ON AND AUDIBLE, PTS ETT IS SECURE SIZE 7.5 SECURE 24 CM ANCHOR FAST IN PLACE, PT IN HF , ASLEEP, RESTRAINED , BS RHONCHI SX MOD WHITE SECRETIONS, BMV HOB, WILL CONTINUE TO MONITOR
[2019-08-13] MEDS: PROPOFOL 1000 MG/100 ML PREMIX 100 ML IV PRN ×2 (06:45→12:51)
--- NOTE | 2019-08-13 07:10 | NUR ---
CHANGE OF SHIFT REPORT GIVEN TO AM NURSE. PT AT STABLE CONDITION AT THIS TIME.
--- NOTE | 2019-08-13 07:20 | NUR ---
RECEIVED REPORT FROM LEATHER CUTTER NURSE AT BEDSIDE, PT IS SEDATED, RASS -3, FLACC 0, VSS, ETT TO VENT WITH SETTING FIO2 24, TV 500, R 12, PEEP 5, CLEAR LUNG SOUNDS MIL. NO S/S OF DISTRESS, SR ON FOURDRINIER OPERATOR, CAP REFILL<2 SEC, SOFT ABDOMEN WITH ACTIVE BOWEL SOUNDS, OGT IN PLACE, FEEDING WITH TWO JAKOB AT 35 ML/HR, 5ML RESIDUALS, TOLERATED WELL, MOLINA CATHETER IN PLACE, CLOUDY YELLOW URINE DRAINING VIA GRAVITY, CONTRACTURES TO BLE, WEAKNESS TO BUE, SKIN IS WARM AND DRY TO TOUCH, OPEN WOUND PRESENT(SEE WOUND ASSESSMENT), IV SITE TO LEFT FOREARM, 20GA, PATENT AND SL, IV SITE TO RIGHT EJ, 18GA, RUNNING PROPOFOL AT 20 MCG/KG/MIN, DRY WEIGHT USING ON PUMP IS 68 KG. HOB ELEVATED TO 30 DEGREES, SAFETY MEASURES IN PLACE, ORAL CARE PROVIDED, POSITION CHANGED FOR OFF LOAD PRESSURE, WILL CONTINUE TO MONITOR.
[2019-08-13] MEDS: PANTOPRAZOLE 40 MG INJ VIAL IVP SCH (08:41)
[2019-08-13] MEDS: FUROSEMIDE 40 MG/4 ML VIAL IVP SCH (08:41)
[2019-08-13] MEDS: METOPROLOL 25 MG TAB PO SCH ×2 (08:42→20:41)
[2019-08-13] MEDS: MUPIROCIN 2% OINT 22 GM TUBE TP SCH (08:42)
[2019-08-13] MEDS: AMIODARONE 200 MG TAB PO SCH ×2 (08:42→20:41)
[2019-08-13] MEDS: ASPIRIN 81 MG TAB.CHEW PO SCH (08:42)
--- NOTE | 2019-08-13 08:45 | NUR ---
SCHEDULED MEDICATION GIVEN, PT TOLERATED WELL.
[2019-08-13] MEDS: ENOXAPARIN 40 MG/0.4 ML SYR SUBQ SCH (08:58)
[2019-08-13] MEDS ORDERED: MUPIROCIN CA NASAL 2% 1GM TUBE NS SCH (09:00)
[2019-08-13 09:01] LABS: BASOPHILS % (AUTO) 0.6 % (0.0-2.0); EOSINOPHILS # (AUTO) 0.6 K/uL (0-0.4); EOSINOPHILS % (AUTO) 7.2 % (0.0-4.0); HEMATOCRIT 27.3 % (36-48); HEMOGLOBIN 8.5 g/dL (12.0-16.0); LYMPHOCYTES # (AUTO) 1.6 K/uL (2.5-16.5); LYMPHOCYTES % (AUTO) 19.8 % (20.5-51.1); MEAN CORPUSCULAR HEMOGLOBIN 25 pg (27-31); MEAN CORPUSCULAR HGB CONC 31 g/dL (33-37); MEAN CORPUSCULAR VOLUME 81.6 fL (80-94); MONOCYTES # (AUTO) 0.8 K/uL (0.8-1.0); MONOCYTES % (AUTO) 9.5 % (1.7-9.3); NEUTROPHILS # (AUTO) 5.1 K/uL (1.8-7.7); NEUTROPHILS % (AUTO) 62.9 % (42.2-75.2); PLATELET COUNT (AUTO) 254 K/uL (140-450); RED BLOOD CELL COUNT(AUTO) 3.35 MIL/uL (4.20-5.40); RED CELL DISTRIBUTION WIDTH 21.8 % (11.6-13.7); WHITE BLOOD COUNT (AUTO) 8.1 K/uL (4.8-10.8)
[2019-08-13] MEDS: THERAHONEY WOUND DRESSING TP SCH (09:19)
[2019-08-13 09:58] LABS: ALBUMIN 1.9 g/dL (3.4-5.0); ANION GAP 12.9 (8-16); CARBON DIOXIDE 26.7 mmol/L (21-32); CREATININE 2.7 mg/dL (0.6-1.3); POTASSIUM 3.6 mmol/L (3.5-5.1); TOTAL BILIRUBIN 0.4 mg/dL (0.0-1.0)
--- NOTE | 2019-08-13 10:00 | NUR ---
NO NEWMAN OF CONDITION, VSS, FLACC 0, POSITION CHANGED FOR OFF LOAD PRESSURE.
--- NOTE | 2019-08-13 10:10 | NUR ---
OFF SEDATION AT THIS TIME FOR SEDATION VACATION.
--- NOTE | 2019-08-13 10:25 | NUR ---
PATIENT IS ALERT, RT AT BEDSIDE TRIED TO PUT PATIENT ON C-PAP, PATIENT COULD NOT TOLERATED, ONLY COUPLE MINS BACK ON AC MODE, RT TRIED THREE TIMES, SAME RESULT, PATIENT IS BACK ON AC MODE AND PROPOFOL, WILL TRY LATER TODAY.
--- NOTE | 2019-08-13 11:30 | NUR ---
DR. VALENZUELA CAME IN TO SEE PATIENT AT BEDSIDE, UPDATED PATIENT'S CONDITION AND THE FAILURE OF WEANING TRAIL FOR TODAY, HE SAID CONTINUE TO TRY IF POSSIBLE.
--- NOTE | 2019-08-13 12:00 | NUR ---
NO S/S OF DISTRESS, VSS, FLACC 0, ORAL CARE PROVIDED, POSITION CHANGED FOR OFF LOAD PRESSURE.
--- NOTE | 2019-08-13 12:45 | NUR ---
DR. KENNEY CAME IN TO SEE PATIENT AT BEDSIDE, UPDATED PATIENT'S CONDITION, WILL FOLLOW UP WITH NEW ORDERS
[2019-08-13] MEDS: HYDRAGUARD CREAM TP SCH (12:52)
--- NOTE | 2019-08-13 14:00 | NUR ---
WOUND CARE PROVIDED TO RIGHT LOWER LEG, PT TOLERATED WELL.
--- NOTE | 2019-08-13 14:10 | NUR ---
08/13/19 RD FOLLOW UP COMPLETED PLEASE REFER TO NUTRITION ASSESSMENT UNDER CARE ACTIVITY FOR ESTIMATED NUTRITIONAL NEEDS. 1. CONTINUE TWO JAKOB HN @ 35 ML/HR X 24 HOURS WITH PROSOURCE ONCE DAILY WITH FREE WATER FLUSH OF 65 ML Q4H -THIS WILL PROVIDE 1740 KCAL AND 85 GM OF PROTEIN DAILY, WHICH WILL MEET 100% OF ESTIMATED NEEDS. IN SETTING OF WORSENING RENAL FUNCTION RECOMMEND NEPRO @35ML/HR X24 HRS WITH PROSOURCE DAILY WITH FWF OF 65ML Q4H -THIS WILL PROVIDE 1572 KCAL AND 83 GM OF PROTEIN DAILY, WHICH WILL MEET 100% OF ESTIMATED NEEDS. 3. RECOMMEND VITAMIN C 200 MG DAILY FOR PRESSURE ULCER 4. IF/WHEN PATIENT IS EXTUBATED FROM VENT, CONSIDER A SWALLOW EVALUATION FOR PO DIET 5. RD TO FOLLOW-UP 2-3 DAYS, HIGH RISK TREY JESUS RD
--- NOTE | 2019-08-13 16:00 | NUR ---
VSS, FLACC 0, NO S/S OF DISTRESS, PM CARE AND ORAL CARE PROVIDED, MOLINA CATHETER CARE PROVIDED, POSITION CHANGED FOR OFF LOAD PRESSURE.
--- NOTE | 2019-08-13 18:00 | NUR ---
NO CHANGE OF CONDITION AT THIS TIME, VSS, DENIES PAIN, POSITION CHANGED FOR OFF LOAD PRESSURE.
--- NOTE | 2019-08-13 19:23 | NUR ---
REPORT GIVEN TO DRY MILL OPERATOR NURSE FOR CONTINUE OF CARE, PT IS IN STABLE CONDITION AT THIS TIME.
--- NOTE | 2019-08-13 19:25 | NUR ---
RECEIVED REPORT FROM DAYSHIFT NURSE AT PATIENTS BEDSIDE. VITAL SIGNS ARE WITHIN NORMAL LIMITS, NO DISTRESS NOTED. WILL FOLLOWUP CARE
[2019-08-13] MEDS: ALBUTEROL 0.083% 2.5 MG/3 ML NEBU INH PRN (19:52)
--- NOTE | 2019-08-13 19:55 | NUR ---
RECEIVED PATIENT RESTING COMFORTABLY, ANOx0, ON PROPOFOL DRIP, RASS -3. PUPILS 3MM, SLUGGISH PERRL. SKIN WARM AND DRY, AFEBRILE. ETT TO VENT, ACVC 12, FI02 24%TV 500, PEEP 5. LUNG SOUNDS DIMINISHED AT BASES, CLEAR IN UPPER LOBES. S1S2, SR ON MONITOR. RIGHT EJ 18G, PATENT, INFUSING PROPOFOL @ 20MCG/KG/MIN-8.16ML/HR. DRY WEIGHT 68KG. LEFT FOREARM PERIPHERAL IV, 20G, FLUSHED PATENT WITHOUT SYMPTOMS. OGT IN PLACE CONNECTED TO TUBE FEEDING @ 35ML/HR. ABDOMEN IS SOFT, NONTENDER, ACTIVE BOWEL SOUNDS. MOLINA CATHETER IN PLACE, CLEAR YELLOW URINE NOTED. RIGHT LOWER LEG OPEN WOUND, DRESSING DRY AND INTACT. RIGHT HEEL SCAB WOUND NOTED, OPEN TO AIR. LOWER EXTREMITIES CONTRACTED, HEEL PROTECTORS IN PLACE. CONTACT PRECAUTIONS IN PLACE. BED LOCKED AND IN LOW POSITION, SIDE RAILS UP, HOB 30 DEGREES. WILL CONTINUE CLOSE MONITORING
--- NOTE | 2019-08-13 20:02 | NUR ---
FAMILY AT BEDSIDE, REQUESTING INFORMATION REGARDING TRANSFER TO [facility]
[2019-08-13] MEDS: CHLORHEXADINE GLUC 2% CLOTH TP SCH (20:41)
--- NOTE | 2019-08-13 22:20 | NUR ---
PATIENT TURNED AND REPOSITIONED, OPENS EYES TO LIGHT PAIN. VENTILATOR ALARMING, PATIENT SUCTIONED THICK WHITE/CREAMY SECRETIONS. WILL CONTINUE TO MONITOR
[2019-08-14] VITALS (57 sets, daily range): BP systolic 81–134; BP diastolic 47–105
--- NOTE | 2019-08-14 00:15 | NUR ---
ORAL CARE PROVIDED, TURNED PATIENT TO OFFLOAD PRESSURE AREAS. PATIENT WITHDRAWS TO PAIN, RASS -3, FLACC 0
[2019-08-14] MEDS: PROPOFOL 1000 MG/100 ML PREMIX 100 ML IV PRN (02:06)
--- NOTE | 2019-08-14 02:35 | NUR ---
PATIENT HAD A LARGE BOWEL MOVEMENT, SEMISOLID, BROWN, PATIENT CLEANED AND DRIED, REPLACED OPTIFOAM DRESSING
--- NOTE | 2019-08-14 04:10 | NUR ---
VAP ORAL CARE, CHLORHEXIDINE BATH, AND MOLINA CARE PROVIDED, PATIENT TOLERATED. REPLACED OPTIFOAM DRESSING TO SACRUM, SMALL SCAB NOTED. APPLIED BARRIER CREAM TO PREVENT BREAKDOWN, TURNED AND REPOSITIONED PATIENT, TOLERATED WELL. PATIENT CONTINUED ON PROPOFOL DRIP, RASS -3, 20MCG/KG/MIN. RIGHT EJ 18G PATENT, LEFT FOREARM 20G, FLUSHED WITHOUT SYMPTOMS, SALINE LOCKED. ETT TO VENT ACVC 12 FI02 24%, TV 500, PEEP 5. OGT CONNECTED TO TUBE FEEDING @ 35 ML/HR. BED LOCKED AND IN LOW POSITION. PATIENT IN STABLE CONDITION
[2019-08-14] MEDS: PIPERACILLIN/TAZOBACTAM 2.25 GM in DEXTROSE 5% 50 ML IV SCH ×3 (04:56→20:19)
--- NOTE | 2019-08-14 05:10 | NUR ---
PATIENT HAD ANOTHER VERY LARGE BOWEL MOVEMENT, SEMILOOSE/SEMISOLID. PATIENT CLEAN AND DRIED, SMALL SCAB AT SACRUM. FLACC 0, NO DISTRESS NOTED
--- NOTE | 2019-08-14 06:48 | NUR ---
RECEIVED PT ON CARESCAPE ON DOCUMENTED SETTINGS, ALARMS ARE ON AND AUDIBLE, PTS ETT IS SECURE 7.5 IS SECURE 24 CM, PT IN HF ASLEEP BS RHJONCHI BMV HOB, VENT PLUGGED INTO RED OUTLET
--- NOTE | 2019-08-14 07:20 | NUR ---
RECEIVED REPORT FROM HAY RAKE OPERATOR NURSE AT BEDSIDE, PT IS SEDATED, RASS -3, FLACC 0, VSS, ETT TO VENT WITH SETTING FIO2 24, TV 500, R 12, PEEP 5, CLEAR LUNG SOUNDS MIL. NO S/S OF DISTRESS, SR WITH PAC ON DIRECTOR MEDICAL ECONOMICS, CAP REFILL<2 SEC, SOFT ABDOMEN WITH ACTIVE BOWEL SOUNDS, OGT IN PLACE, FEEDING WITH TWO JAKOB AT 35 ML/HR, 20ML RESIDUALS, TOLERATED WELL, MOLINA CATHETER IN PLACE, CLEAR YELLOW URINE DRAINING VIA GRAVITY, CONTRACTURES TO BLE, WEAKNESS TO BUE, SKIN IS WARM AND DRY TO TOUCH, OPEN WOUND PRESENT(SEE WOUND ASSESSMENT), IV SITE TO LEFT FOREARM, 20GA, PATENT AND SL, IV SITE TO RIGHT EJ, 18GA, RUNNING PROPOFOL AT 20 MCG/KG/MIN, DRY WEIGHT USING ON PUMP IS 68 KG. HOB ELEVATED TO 30 DEGREES, SAFETY MEASURES IN PLACE, ORAL CARE PROVIDED, POSITION CHANGED FOR OFF LOAD PRESSURE, WILL CONTINUE TO MONITOR.
--- NOTE | 2019-08-14 08:55 | NUR ---
OFF PROPOFOL FOR WEANING TRAIL.
[2019-08-14] MEDS: AMIODARONE 200 MG TAB PO SCH ×2 (09:00→20:20)
[2019-08-14] MEDS ORDERED: ENOXAPARIN 40 MG/0.4 ML SYR SUBQ SCH (09:00)
[2019-08-14] MEDS: METOPROLOL 25 MG TAB PO SCH ×2 (09:00→20:20)
--- NOTE | 2019-08-14 09:00 | NUR ---
DC PLANNING: ADMITTED THIS 64 Y/O FEMALE FROM HOME DUE TO SOB . PATIENT HAS PAST MEDICAL HISTORY OF CHF, COPD, STROKE, HTN AND A FIB. PATIENT WAS ORALLY INTUBATED IN THE ED AND WAS PLACED ON VENT. ON PROPOFOL DRIP, VANCOMYCIN AND ZOSYN. D/C PLAN PENDING ON PATIENT'S RESPONSE TO TREATMENT. Addendum: 08/15/19 at 1216 by Brisa Lizama CM PATIENT EXTUBATED YESTERDAY 1245 AND WAS PLACED ON BIPAP BUT NOW ON NASAL CANNULA AT 3LPM. STILL ON VANCOMYCIN, LASIX IV, LOVENOX AND AMIODARONE PO. DC PLAN IS FOR SNF FOR PT.
--- NOTE | 2019-08-14 09:00 | NUR ---
DR. KENNEY CAME IN TO SEE PATIENT AT BEDSIDE, UPDATED PATIENT CONDITION WILL FOLLOW UP WITH NEW ORDERS.
--- NOTE | 2019-08-14 09:15 | NUR ---
SCHEDULED MEDICATION GIVEN, PT TOLERATED WELL.
[2019-08-14] MEDS: PANTOPRAZOLE 40 MG INJ VIAL IVP SCH (09:25)
[2019-08-14] MEDS: ASPIRIN 81 MG TAB.CHEW PO SCH (09:25)
[2019-08-14] MEDS: FUROSEMIDE 40 MG/4 ML VIAL IVP SCH (09:25)
[2019-08-14] MEDS: ENOXAPARIN 30 MG/0.3 ML SYR SUBQ SCH (09:26)
[2019-08-14] MEDS: MUPIROCIN 2% OINT 22 GM TUBE TP SCH (09:28)
[2019-08-14 09:32] LABS: HEMATOCRIT 30.8 % (36-48); HEMOGLOBIN 9.4 g/dL (12.0-16.0); MEAN CORPUSCULAR HEMOGLOBIN 25 pg (27-31); MEAN CORPUSCULAR HGB CONC 31 g/dL (33-37); PLATELET COUNT (AUTO) 249 K/uL (140-450); RED BLOOD CELL COUNT(AUTO) 3.75 MIL/uL (4.20-5.40); RED CELL DISTRIBUTION WIDTH 21.9 % (11.6-13.7); WHITE BLOOD COUNT (AUTO) 7.7 K/uL (4.8-10.8)
--- NOTE | 2019-08-14 09:45 | NUR ---
PATIENT IS AWAKE AND AGITATED, TRYING TO PULL OUT THE TUBES, DR. VALENZUELA MAKE AWARE, OBTAINED THE RESTRAIN ORDER. PLACED PATIENT ON MIL. WRIST SOFT RESTRAIN FOR SAFETY. PATIENT'S DAUGHTER AT BEDSIDE AT THIS TIME, MADE AWARE OF THE RESTRAIN.
[2019-08-14 10:07] LABS: BASOPHILS % (MANUAL) 0 % (0-2); EOSINOPHILS % (MANUAL) 4 % (0-4); LYMPHOCYTES % (MANUAL) 25 % (20-46); MONOCYTES % (MANUAL) 5 % (5-12)
[2019-08-14 10:16] LABS: CARBON DIOXIDE 27.7 mmol/L (21-32); CREATININE 2.5 mg/dL (0.6-1.3); POTASSIUM 3.7 mmol/L (3.5-5.1); TOTAL BILIRUBIN 0.4 mg/dL (0.0-1.0)
[2019-08-14] MEDS ORDERED: VANCOMYCIN 1,000 MG in DEXTROSE 5% 250 ML IV SCH (11:00)
--- NOTE | 2019-08-14 11:27 | NUR ---
PLACED PT ON SBT 10\5
--- NOTE | 2019-08-14 11:30 | NUR ---
DR. VALENZUELA CAME IN TO SEE PATIENT AT BEDSIDE, UPDATED PATIENT'S CONDITION AND FAMILY REQUEST TO SPEAK TO HIM, DR. VALENZUELA SPOKE TO PATIENT'S SON VIA TELEPHONE REGARDING PATIENT'S CONDITION AND NO NECESSARY TO TRANSFER ANOTHER HOSPITAL AT THIS TIME, IF PATIENT'S FAMILY INSIST TO TRANSFER, THEN THEY HAVE TO FIND ACCEPTING DOCTORS AND TRANSPORTATION BY THEIR SELF PER DR. VALENZUELA.
--- NOTE | 2019-08-14 12:47 | NUR ---
PT EXTUBATED PER ORDER WITHOUT INCIDENT PLACED PT ON BIPAP PER ORDER
--- NOTE | 2019-08-14 12:47 | NUR ---
PT EXTUBATED BY RT PER DR. VALENZUELA'S ORDER, ON BIPAP, O2 SAT 100%, BP 112/72, HR 101, RR 22.
--- NOTE | 2019-08-14 12:54 | NUR ---
PLACED PT ON FERRELL ON DOCUMENTED SETTINGS, ALARMS ARE ON AND AUDIBLE, PT IN HF WEARING F\F MASK SIZE LG ,GEL UNDER , MASK PT IS QUIET BMV HOB, BIPAP PLUGGED INTO RED OUTLET PER DR VALENZUELA
[2019-08-14] MEDS: HYDRAGUARD CREAM TP SCH (12:56)
--- NOTE | 2019-08-14 14:00 | NUR ---
PT IS RESTING IN BED, NO S/S OF DISTRESS, VSS, FLACC 0, POSITION CHANGED FOR OFF LOAD PRESSURE.
--- NOTE | 2019-08-14 14:25 | NUR ---
PT PULLED OUT OGT SELF ACCIDENTALLY, MD AWARE.
--- NOTE | 2019-08-14 15:15 | NUR ---
INFORMED DR. KENNEY AND UPDATED PATIENT'S CONDITION, NO FEEDING TUBE FOR PATIENT ANYMORE, DR. KENNEY STATED NO NEED IV HYDRATION AT THIS TIME, CONTINUE TO MONITOR, AND GET ST TO EVAL PATIENT JERI. CALLED ST, NO ONE ANSWER AT THIS TIME.
[2019-08-14] MEDS: MORPHINE SULFATE 2 MG/ML SYR IVP PRN ×2 (15:49→23:56)
--- NOTE | 2019-08-14 16:00 | NUR ---
PM CARE AND MOLINA CATHETER CARE PROVIDED, ORAL CARE DONE, PATIENT TOLERATED WELL, NO S/S OF DISTRESS, VSS, FLACC 0, POSITION CHANGED FOR OFF LOAD PRESSURE.
[2019-08-14 18:28] LABS: MAGNESIUM 3.7 mg/dL (1.8-2.4); PHOSPHORUS 1.7 mg/dL (2.5-4.9)
--- NOTE | 2019-08-14 19:15 | NUR ---
RECEIVED ENDORSEMENT AT PATIENTS BEDSIDE, NO SIGNS OF DISTRESS NOTED AT THIS TIME, WILL FOLLOWUP CARE
--- NOTE | 2019-08-14 19:50 | NUR ---
PATIENT TURNED AND REPOSITIONED, ORIENTED PATIENT ON IMPORTANCE OF THE NASAL CANNULA, PATIENT VERBALIZES UNDERSTANDING. NASAL CANNULA IN PLACE 3L.
--- NOTE | 2019-08-14 20:05 | NUR ---
PATIENT AWAKE, ALERT TO NAME, RESTING IN BED, EYES OPEN SPONTANEOUSLY, FOLLOWS COMMANDS, MAKES NEEDS KNOWN BUT SPEECH IS GARBLED. PATIENT HAS NASAL CANNULA 3L, SATURATION 100%. LUNG SOUNDS SLIGHTLY COARSE, AND DIMINISHED AT BASES. HEART RATE IS SR-ST ON MONITOR, 90'S - 110'S. LEFT UPPER CHEST PACEMAKER IN PLACE. RIGHT AC PERIPHERAL IV 22G, FLUSHED AND PATENT, SALINE LOCKED. ABDOMEN IS SOFT AND NONTENDER, BOWEL SOUNDS ACTIVE. MOLINA CATHETER IN PLACE, CLEAR YELLOW URINE NOTED. RIGHT LOWER EXTREMITY IS CONTRACTED. PATIENT WITHDRAWS TO REPOSITIONING. RIGHT LOWER LEG HAS AN OPEN WOUND, DRESSING DRY AND INTACT, RIGHT HEEL HAS A WOUND, SCABBING, OPEN TO AIR. HEEL PROTECTORS IN PLACE. SACRUM HAS A SMALL SCAB, OPTIFOAM DRESSING IN PLACE BED IS LOCKED AND IN LOW POSITION, SIDERAILS UP, CONTACT ISOLATION PRECAUTIONS IN PLACE. PATIENT UPDATED ON CARE PLAN AND CALL LIGHT WITHIN REACH..
[2019-08-14] MEDS: CHLORHEXADINE GLUC 2% CLOTH TP SCH (20:20)
[2019-08-14] MEDS ORDERED: FUROSEMIDE 20 MG/2 ML VIAL IVP SCH (21:00)
[2019-08-15] VITALS (9 sets, daily range): BP systolic 92–135; BP diastolic 51–84
--- NOTE | 2019-08-15 00:10 | NUR ---
PATIENT SCREAMING AND MOANING, ASKED ABOUT PAIN AND MEDICATIONS AND PATIENT STATES " MY KNEE" GRABBING SITE AND FACIAL GRIMACING ALSO. ADMINISTERED PRN MORPHINE. WILL REASSESS. TURNED AND REPOSITIONED PATIENT, DID NOT TOLERATE VERY WELL STILL IN PAIN. VITAL SIGNS STABLE
--- NOTE | 2019-08-15 00:45 | NUR ---
PATIENT RESTING COMFORTABLY IN BED, EYES CLOSED. NO SIGN OF DISTRESS FLACC 0
--- NOTE | 2019-08-15 02:30 | NUR ---
PATIENT ASLEEP, NASAL CANNULA IN PLACE, 3LPM, VITAL SIGNS STABLE, CHEST RISE AND FALL. NO DISTRESS
--- NOTE | 2019-08-15 07:16 | NUR ---
RECEIVED BEDSIDE REPORT FROM DELILAH EXPENSE ANALYST RN. PATIENT IS AAOX1, LETHARGIC. PATIENT'S SKIN IS WARM, DRY, AFEBRILE, SHE HAS OPEN WOUND TO R. LOWER LEG. SHE IS ON NASAL CANNULA AT 3LPM, BREATHING EVEN AND UNLABORED. PATIENT IS SR ON MONITOR, DENIES ANY PAIN AT THIS TIME. SHE HAS MOLINA CATHETER IN PLACE. HOB IS SEMI-FOWLERS, SIDE RAILS UP 3X, BED LOCKED IN LOW POSITION. CALL LIGHT WITHIN REACH. SAFETY PRECAUTIONS AND ALARMS ASSESSED AND ENFORCED. NO DISTRESS AT THIS TIME.
[2019-08-15] MEDS: ALBUTEROL 0.083% 2.5 MG/3 ML NEBU INH PRN ×2 (08:04→15:24)
--- NOTE | 2019-08-15 08:15 | NUR ---
SATURATION 100% ON SUPPLEMENTAL OXYGENT AT 3 LPM VIA [facility] THERAPY TITRATED FIO2 TO 2 LPM NICCI/RN NOTIFIED
--- NOTE | 2019-08-15 08:20 | NUR ---
BIPAP VISION (#0190) TO MASK AT BEDSIDE FOR PRN USE FOR SOB
--- NOTE | 2019-08-15 08:28 | NUR ---
PATIENT'S DAUGHTER IS HERE, UPDATED ON PATIENT'S CONDITION. WILL FOLLOW UP ON ANY ORDERS.
--- NOTE | 2019-08-15 08:36 | NUR ---
LAB AT THE BEDSIDE.
[2019-08-15] MEDS: ASPIRIN 81 MG TAB.CHEW PO SCH (08:47)
[2019-08-15] MEDS: FUROSEMIDE 40 MG/4 ML VIAL IVP SCH (08:47)
[2019-08-15] MEDS: METOPROLOL 25 MG TAB PO SCH ×2 (08:47→20:23)
[2019-08-15] MEDS: PANTOPRAZOLE 40 MG INJ VIAL IVP SCH (08:47)
[2019-08-15] MEDS: AMIODARONE 200 MG TAB PO SCH ×2 (08:48→20:23)
[2019-08-15] MEDS: ENOXAPARIN 30 MG/0.3 ML SYR SUBQ SCH (08:50)
[2019-08-15] MEDS: THERAHONEY WOUND DRESSING TP SCH (09:04)
[2019-08-15] MEDS: MUPIROCIN 2% OINT 22 GM TUBE TP SCH (09:04)
--- NOTE | 2019-08-15 09:22 | NUR ---
SPEECH THERAPIST IS HERE FOR SWALLOW EVAL.
--- NOTE | 2019-08-15 09:33 | NUR ---
SPOKE WITH SPEECH THERAPIST, STATES PATIENT IS OK FOR PUREE DIET WITH NECTAR THICKENED LIQUIDS, PATIENT IS TO SIT UP AT 45 DEGREE ANGLE DURING FEEDING
[2019-08-15 09:42] LABS: BASOPHILS % (AUTO) 0.5 % (0.0-2.0); EOSINOPHILS # (AUTO) 0.5 K/uL (0-0.4); EOSINOPHILS % (AUTO) 7.1 % (0.0-4.0); HEMATOCRIT 34.3 % (36-48); HEMOGLOBIN 10.5 g/dL (12.0-16.0); LYMPHOCYTES % (AUTO) 30.2 % (20.5-51.1); MEAN CORPUSCULAR HEMOGLOBIN 25 pg (27-31); MEAN CORPUSCULAR HGB CONC 31 g/dL (33-37); MEAN CORPUSCULAR VOLUME 82.5 fL (80-94); MONOCYTES # (AUTO) 0.6 K/uL (0.8-1.0); MONOCYTES % (AUTO) 8.9 % (1.7-9.3); NEUTROPHILS # (AUTO) 3.5 K/uL (1.8-7.7); NEUTROPHILS % (AUTO) 53.3 % (42.2-75.2); PLATELET COUNT (AUTO) 272 K/uL (140-450); RED BLOOD CELL COUNT(AUTO) 4.16 MIL/uL (4.20-5.40); RED CELL DISTRIBUTION WIDTH 21.6 % (11.6-13.7); WHITE BLOOD COUNT (AUTO) 6.5 K/uL (4.8-10.8)
--- NOTE | 2019-08-15 09:53 | NUR ---
*S.T. Bedside swallow eval completed* See report. Pt presents w/ moderate oropharyngeal dysphagia c/b slow oral prep and delayed pharyngeal swallow response. This is, however, pt's baseline function and the textures she was able to tolerate are also her baseline diet textures. Therefore, recommend: 1) Advance to pureed diet, nectar thick liquids. Straws okay. Crushed P.O. meds mixed w/ puree or nectar thick liquids okay. 2) 1:1 feeder w/ aspiration precautions 3) Pt demo'd symptoms of pain when HOB was moved up or down. Eval was completed w/ pt at 45 degree angle. It is recommended that pt be upright as upright as possible, naer 90 degree angle. Pt appears to be functioning at her reported baseline. No further tx indicated at this time. DC to [facility]. Endorsed to JOSHUA Ortiz. Time [id number]
[2019-08-15] MEDS: MORPHINE SULFATE 2 MG/ML SYR IVP PRN ×3 (10:03→20:23)
[2019-08-15 10:10] LABS: ANION GAP 12.6 (8-16); CARBON DIOXIDE 29.9 mmol/L (21-32); POTASSIUM 3.5 mmol/L (3.5-5.1)
[2019-08-15 10:11] LABS: CREATININE 2.4 mg/dL (0.6-1.3)
--- NOTE | 2019-08-15 10:34 | NUR ---
CHANGED WOUND DRESSING, ADMINISTERED MORPHINE IVP 2MG, PATIENT TOLERATED WELL.
--- NOTE | 2019-08-15 10:44 | NUR ---
DR. VALENZUELA HERE TO SEE AND EXAMINE PATIENT, UPDATED ON PATIENT'S CONDITION. WILL FOLLOW UP ON ANY ORDERS
[2019-08-15 10:47] LABS: ALBUMIN 2.3 g/dL (3.4-5.0); TOTAL BILIRUBIN 0.8 mg/dL (0.0-1.0)
--- NOTE | 2019-08-15 10:58 | NUR ---
DR. VALENZUELA AWARE OF PHOSPHORUS 1.7, STATES THAT HE IS NOT GOING TO ORDER ANYTHING BECAUSE PATIENT WILL BE STARTED ON DIET.
[2019-08-15] MEDS ORDERED: VANCOMYCIN 750 MG in DEXTROSE 5% 250 ML IV SCH (11:00)
--- NOTE | 2019-08-15 11:31 | NUR ---
DC PLANNING: CONTACTED BLU RYAN OF [facility] AT [phone] [id number], NO ANSWER. LEFT MESSAGE REGARDING DC PLAN TO SNF FOR PT. PER CHARGE NURSE, PT HAS NOT SEEN THE PATIENT YET. Addendum: 08/15/19 at 1136 by Brisa Lizama CM CLINICALS AND ORDERS SENT TO [phone]. [facility] TO FOLLOW UP. Addendum: 08/15/19 at 5759 by Saundra Garcia CM DC PLANNING: RECEIVED A CALL FROM [facility] NEEDED A PHYSICAL THERAPY EVALUATION FOR SNF PLACEMENT , CALLED ICU NURSE SPOKE WITH NICCI LEWIS THE PT WAS ORDERD LATE AND UNABLE TO COME TO DO THE EVALUATION CM TO F/U Addendum: 08/16/19 at 0842 by Brisa Lizama PER CHARGE NURSE, WILL FOLLOW UP WITH PT. Addendum: 08/16/19 at 1248 by Brisa Lizama MET WITH THE PATIENT AT THE BEDSIDE TOGETHER WITH DR. VALENZUELA, PATIENT IS AGREEABLE WITH THE PLAN. CONTACTED PATIENT'S DAUGHTER JAE GUPTA AT [phone], NO ANSWER. LEFT MESSAGE REGARDING DC PLAN. Addendum: 08/16/19 at 1311 by Brisa Lizama CONTACTED PATIENT'S SIGNIFICANT OTHER/POA RJ BASILIO AT [phone], REGARDING DC PLAN TO SNF. HE IS AGREEABLE TO THE PLAN. PT NOTES FAXED TO [facility] AT [phone]. Addendum: 08/16/19 at 0838 by Brisa Lizama CM PER DANIELLA RYAN AT [facility] [phone], SHE WILL SEND OVER THE PT NOTES FOR REVIEW. Addendum: 08/16/19 at 1502 by Brisa Lizama CM CONTACTED [facility] RICHTER, NO ANSWER. LEFT MESSAGE. CONTACTED [facility] AT [phone], ABLE TO SPEAK TO VALERIO REGARDING AUTH FOR SNF. SHE STATED THEY FORWARDED THE REQUEST TO [facility] [employer]. SHE ALSO PROVIDED ME WITH [facility]'S CONTACT INFO [phone] EXT [phone]. CONTACTED THE PROVIDED NUMBER, NO ANSWER. LEFT MESSAGE. Addendum: 08/16/19 at 1404 by Brisa Lizama CM RECEIVED A CALL FROM [facility], SHE STATED THEY CANNOT AUTHORIZE SNF PLACEMENT FOR PT. PER PT'S RECOMMENDATION, PATIENT IS UNABLE TO PARTICIPATE WITH PT SERVICES DUE TO LOWER LEGS CONTRACTURES. I INQUIRED ABOUT HOME HEALTH, SHE STATED NO NEED FOR AUTH UNLESS AGENCY WILL ASK FOR ONE. PATIENT'S POA RJ BASILIO MADE AWARE. CONTACTED [facility] AT [phone], ABLE TO SPEAK TO NORAH. SHE STATED SHE WILL HAVE THEIR CM DR. VALENZUELA AND CHARGE NURSE MADE AWARE. LEFT MESSAGE TO [facility]U RYAN REGARDING DC PLAN WITH HOME HEALTH. CONTACTED [facility] AT [phone], ABLE TO SPEAK TO DANIELLA REGARDING HOME HEALTH ORDER AND TRANSPORTATION. SHE STATED SHE WILL SEND THE REQUEST TO BLU RYAN. PROVIDED HER WITH THE UNIT'S PHONE NUMBER. CHARGE NURSE MADE AWARE. Addendum: 08/17/19 at 0826 by Brisa Lizama CM CONTACTED [facility] AT [phone], ABLE TO SPEAK TO ILAT (PROTEIN CHEMIST) REGARDING REFERRAL. SHE STATED SHE WILL NORAH CALL ME BACK. Addendum: 08/17/19 at 0834 by Brisa Lizama CM RECEIVED A CALL FROM NORAH OF [facility], SHE STATED SHE WILL HAVE A THEIR NURSE SEE THE PATIENT TODAY.
--- NOTE | 2019-08-15 12:26 | NUR ---
DR. KENNEY IS HERE TO SEE AND EXAMINE PATIENT, UPDATED ON PATIENT'S CONDITION. STATES TO START PATIENT ON D5W IVF AT 50/HR, WILL FOLLOW UP ON ORDERS
[2019-08-15] MEDS: HYDRAGUARD CREAM TP SCH (12:28)
--- NOTE | 2019-08-15 12:53 | NUR ---
PT EXTN [id number] CALLED. LEFT MESSAGE AND PHONE NUMBER TO CALL US BACK.
--- NOTE | 2019-08-15 13:26 | NUR ---
08/15/19 RD FOLLOW UP COMPLETED PLEASE REFER TO NUTRITION ASSESSMENT UNDER CARE ACTIVITY FOR ESTIMATED NUTRITIONAL NEEDS. 1. RECOMMEND PUREE, CARDIAC DIET WITH NECTAR THICK LIQUIDS 2. RECOMMEND VITAMIN C 250MG BID 3. RD TO FOLLOW-UP 2-3 DAYS, HIGH RISK TREY JESUS, RD
--- NOTE | 2019-08-15 14:01 | NUR ---
PATIENT IS MOANING IN PAIN, FLACC 7, WILL ADMINISTER MORPHINE 2MG IVP.
[2019-08-15] MEDS: DEXTROSE 5% 1,000 ML IV SCH (14:03)
--- NOTE | 2019-08-15 15:17 | NUR ---
PATIENT HAD 1 MODERATE BM, SHE WAS CLEANED AND REPOSITIONED FOR COMFORT. PATIENT TOLERATED WELL, NO SIGNS OF DISTRESS NOTED
[2019-08-15] MEDS ORDERED: ASCORBIC ACID 500 MG TAB PO SCH ×2 (17:00)
--- NOTE | 2019-08-15 17:40 | NUR ---
PROVIDED PATIENT WITH DINNER, PATIENT TOLERATED WELL.
--- NOTE | 2019-08-15 19:00 | NUR ---
TRANSFERRED PATIENT TO [facility] VIA BED. ENDORSED CONTINUITY OF CARE TO [facility] RN. NO SIGNS OF DISTRESS NOTED
--- NOTE | 2019-08-15 19:01 | NUR ---
RECEIVED PT FROM ICU NURSE. PT CAME IN [facility]. PATIENT IS AAOX1, LETHARGIC. PATIENT'S SKIN IS WARM, DRY, SHE HAS OPEN WOUND TO R. LOWER LEG. SHE IS ON NASAL CANNULA AT 3LPM, BREATHING EVEN AND UNLABORED. SHE HAS MOLINA CATHETER IN PLACE. CONTACT [facility] FOR MRSA IN NARES AND WOUND. HOB IS SEMI-FOWLERS, SIDE RAILS UP 3X, BED LOCKED IN LOW POSITION. CALL LIGHT WITHIN REACH. WILL CONTINUE TO MONITOR.
[2019-08-15] MEDS: CHLORHEXADINE GLUC 2% CLOTH TP SCH (20:23)
--- NOTE | 2019-08-15 20:23 | NUR ---
PT C/O PAIN, GIVEN MORPHINE MD ORDERED, APPLIED CHLORHEXIDINE GLUC 2% CLOTH MD ORDERED. HELD AMIODARONE AND METOPROLOL D/T BP<100, 96/66
--- NOTE | 2019-08-15 22:22 | NUR ---
PT SLEEPING IN BED. NO ACUTE DISTRESS NOTED.
--- NOTE | 2019-08-15 22:49 | NUR ---
PT AGITATING. GIVEN ATIVAN MD ORDERED. PT TOLERATED WELL.
[2019-08-16] VITALS: BP 100/64
--- NOTE | 2019-08-16 00:05 | NUR ---
VS CHECKED, WITHIN PT'S BASELINE. WILL CONTINUE TO MONITOR.
--- NOTE | 2019-08-16 02:48 | NUR ---
PT SLEEPING IN BED COMFORTABLY. NO ACUTE DISTRESS NOTED.
[2019-08-16 04:00] VITALS: BP 110/76
--- NOTE | 2019-08-16 04:00 | NUR ---
VS CHECKED, WITHIN PT'S BASELINE. WILL CONTINUE TO MONITOR.
--- NOTE | 2019-08-16 05:15 | NUR ---
PT SLEEPING IN BED. NO ACUTE DISTRESS NOTED
--- NOTE | 2019-08-16 06:35 | NUR ---
PT SLEEPING IN BED COMFORTABLY. NO ACUTE DISTRESS NOTED.
[2019-08-16 06:53] LABS: BASOPHILS % (AUTO) 0.4 % (0.0-2.0); EOSINOPHILS # (AUTO) 0.5 K/uL (0-0.4); HEMATOCRIT 29.2 % (36-48); HEMOGLOBIN 8.9 g/dL (12.0-16.0); LYMPHOCYTES # (AUTO) 1.8 K/uL (2.5-16.5); LYMPHOCYTES % (AUTO) 32.1 % (20.5-51.1); MEAN CORPUSCULAR HEMOGLOBIN 25 pg (27-31); MEAN CORPUSCULAR HGB CONC 31 g/dL (33-37); MEAN CORPUSCULAR VOLUME 82.6 fL (80-94); MONOCYTES # (AUTO) 0.7 K/uL (0.8-1.0); MONOCYTES % (AUTO) 11.7 % (1.7-9.3); NEUTROPHILS # (AUTO) 2.7 K/uL (1.8-7.7); NEUTROPHILS % (AUTO) 47.8 % (42.2-75.2); PLATELET COUNT (AUTO) 246 K/uL (140-450); RED BLOOD CELL COUNT(AUTO) 3.53 MIL/uL (4.20-5.40); RED CELL DISTRIBUTION WIDTH 21.2 % (11.6-13.7); WHITE BLOOD COUNT (AUTO) 5.6 K/uL (4.8-10.8)
--- NOTE | 2019-08-16 07:05 | NUR ---
RECEIVED BEDSIDE REPORT FROM AIRCRAFT FUELER NURSE. PATIENT APHASIC. NO RESPIRATORY DISTRESS. ON 1.5 L NC. PATIENT BEDBOUND. FALL RISK PROTOCOL IN PLACE. SKIN RIGHT LEG WOUND. DRESSING IS CLEAN AND DRY. IV ON RIGHT FOREARM 22 G INFUSING D5 AT 50ML/HR. CLEAN, DRY AND INTACT. PATIENT IS INCONTINENT, MOLINA IS PATENT. BED IN LOW POSITION. CALL LIGHT WITHIN REACH. WILL CONTINUE TO MONITOR.
--- NOTE | 2019-08-16 07:07 | NUR ---
PATIENT RESTING COMFORTABLY ON 1.5L NC SPO2 99%. NO RESP DISTRESS NOTED. WILL MONITOR.
[2019-08-16 07:24] LABS: ANION GAP 9.6 (8-16); CARBON DIOXIDE 31.6 mmol/L (21-32); POTASSIUM 3.2 mmol/L (3.5-5.1)
[2019-08-16 07:25] LABS: CREATININE 2.4 mg/dL (0.6-1.3); TOTAL BILIRUBIN 0.4 mg/dL (0.0-1.0)
[2019-08-16 08:00] VITALS: BP 111/73
[2019-08-16] MEDS ORDERED: ASCORBIC ACID 500 MG TAB PO SCH (09:00)
[2019-08-16] MEDS: AMIODARONE 200 MG TAB PO SCH ×2 (09:36→20:43)
[2019-08-16] MEDS: METOPROLOL 25 MG TAB PO SCH ×2 (09:36→20:44)
[2019-08-16] MEDS: ASPIRIN 81 MG TAB.CHEW PO SCH (09:37)
[2019-08-16] MEDS: FUROSEMIDE 40 MG/4 ML VIAL IVP SCH (09:37)
[2019-08-16] MEDS: PANTOPRAZOLE 40 MG INJ VIAL IVP SCH (09:38)
--- NOTE | 2019-08-16 09:38 | NUR ---
ADMINISTERED MEDICATIONS. EDUCATED ON MEDICATION PURPOSE AND SIDE EFFECTS. PT. TOLERATED WELL. CALL LIGHT WITHIN REACH. BED IN LOW POSITION. INSTRUCTED PATIENT TO UTILIZE CALL LIGHT IF ANY ASSISTANCE IS NEEDED.
[2019-08-16] MEDS: MUPIROCIN 2% OINT 22 GM TUBE TP SCH (09:39)
[2019-08-16] MEDS: DEXTROSE 5% 1,000 ML IV SCH (09:43)
[2019-08-16] MEDS: ENOXAPARIN 30 MG/0.3 ML SYR SUBQ SCH (09:43)
[2019-08-16] MEDS ORDERED: POTASSIUM CHLORIDE 10 MEQ TABER PO SCH (11:30)
[2019-08-16 12:00] VITALS: BP 111/82
[2019-08-16] MEDS ORDERED: POTASSIUM CHLORIDE 20% 40 MEQ/15 ML UDC PO SCH (13:00)
[2019-08-16] MEDS: HYDRAGUARD CREAM TP SCH (13:15)
--- NOTE | 2019-08-16 13:15 | NUR ---
PATIENT COMPLAINT OF NAUSEA. MEDICATED WITH ZOFRAN. POTASSIUM ALSO GIVEN. EDUCATED ON MEDICATION PURPOSE AND SIDE EFFECTS. PATIENT TOLERATED WELL. WILL CONTINUE TO MONITOR. BED IN LOW POSITION. CALL LIGHT WITHIN REACH.
--- NOTE | 2019-08-16 13:40 | NUR ---
REASSESSMENT OF NAUSEA. PATIENT DENIES ANY NAUSEA. PATIENT IS SLEEPING AT THIS TIME. NO SIGNS OF DISTRESS. CALL LIGHT WITHIN REACH. BED IN LOW POSITION. WILL CONTINUE TO MONITOR.
[2019-08-16 16:00] VITALS: BP 124/80
--- NOTE | 2019-08-16 16:45 | NUR ---
VITAL SIGNS TAKEN. PATIENT IS IN STABLE CONDITION. BP 124/80. HR 79. TEMP 98.1. O2SAT 96% RA. RESPIRATIONS 16, EVEN AND UNLABORED.
--- NOTE | 2019-08-16 16:50 | NUR ---
PATIENT IS RESTING AT THIS TIME. AND DAUGHTER AT BEDSIDE. NO SIGNS OF DISTRESS NOTED. CALL LIGHT WITHIN REACH. BED IN LOW POSITION.
--- NOTE | 2019-08-16 17:17 | NUR ---
DANIELLA FROM [facility] CALLED AND GAVE AUTHORIZATION FOR TRANSPORT [facility] #[phone].
--- NOTE | 2019-08-16 18:16 | NUR ---
REMOVED MOLINA CATH. PATIENT TOLERATED WELL
--- NOTE | 2019-08-16 19:32 | NUR ---
EDUCATED ON DISCHARGE INFORMATION, EDUCATED ON FOLLOW UP W PCP IN A WEEK, EDUCATED ON CONTINUED MEDS. EDUCATED ON HOMEHEALTH PRIORITY TO SEE THE PATIENT TOMRROW. PATIENT UNABLE TO SIGN PAPERWORK. gave bedside report to warehouse shift supervisor nurse. PATIENT ENDORSED IN STABLE CONDITION. ENDORSED NURSE TO REMOVE IV AND ID BANDS, ALSO ENDORSED NURSE TO TAKE WOUND PHOTO.
[2019-08-16 20:30] VITALS: BP 126/97
--- NOTE | 2019-08-16 20:30 | NUR ---
SEEN PT AWAKE, ALERT, ORIENTED TO SELF ONLY, LYING ON HER LEFT SIDE. INITIAL ASSESSMENT DONE. IVF STOPPED AND SALINE LOCK ON RT FA G22, WRAPPED W/ KERLIX. VITAL SIGNS CHECKED. PICTURE OF PT'S RIGHT LEG TAKEN. WOUND CLEANSED W/ WOUND CLEANSER, ADAPTIC APPLIED AND WRAPPED W/ KERLIX. PT TOLERATED PROCEDURE WELL. PT VOIDED AND HAD BOWEL MOVEMENT. PERINEAL CARE RENDERED. PT REPOSITIONED FOR COMFORT. SAFETY REINFORCED.
--- NOTE | 2019-08-16 20:45 | NUR ---
PT'S HOB ELEVATED. PO MEDICATIONS GIVEN W/ APPLE SAUCE FOLLOWED BY WATER. PT TOLERATED MEDICATION WELL. TEACHINGS PROVIDED WELL. BED ALARM ON.
[2019-08-16] MEDS: CHLORHEXADINE GLUC 2% CLOTH TP SCH (20:46)
--- NOTE | 2019-08-16 21:05 | NUR ---
PER PROMOTIONAL MARKETING ANALYST, APPLIQUER ZIGZAG TIME WILL BE LATE AND WON'T BE HERE IN 60-90 MINS.
--- NOTE | 2019-08-16 22:47 | NUR ---
E SAP BASIS CONSULTANT HERE. PT'S IV SALINE LOCK ON RIGHT ARM REMOVED. PRESSURE APPLIED AND COVERED W/ BANDAID. PERINEAL CARE RENDERED BY CNAs.
--- NOTE | 2019-08-16 22:56 | NUR ---
SPOKE TO RJ, PT'S SPOUSE JUST TO MAKE SURE SOMEBODY'S HOME SINCE TRANSPORT SAID THE LAST TIME THEY BROUGHT THE PT HOME THEY WAITED FOR 15MINS BECAUSE NOBODY'S ANSWERING.
--- NOTE | 2019-08-16 23:00 | NUR ---
PT LEFT VIA GURNEY USING [facility].
== END 2019-08-16 23:00 | disposition home health service (06) | DRG 130 ==
LOC: MED 11:37 → MIC 19:14 → MTU 08-15 19:00
PROVIDERS: ADMIT Internal Medicine; ATTEND Internal Medicine
PROC: 5A1955Z Respiratory Ventilation, Greater than 96 Consecutive Hours (ICD-10-PCS; principal; 2019-08-09)
PROC: 0BH17EZ Insertion of Endotracheal Airway into Trachea, Via Natural or Artificial Opening (ICD-10-PCS; 2019-08-09)
PROC: 5A09357 Assistance with Respiratory Ventilation, Less than 24 Consecutive Hours, Continuous Positive Airway Pressure (ICD-10-PCS; 2019-08-09)
DX: J69.0 Pneumonitis due to inhalation of food and vomit (principal); I21.A1 Myocardial infarction type 2; N17.0 Acute kidney failure with tubular necrosis; I50.23 Acute on chronic systolic (congestive) heart failure; I47.2 Ventricular tachycardia; I08.3 Combined rheumatic disorders of mitral, aortic and tricuspid valves; E44.1 Mild protein-calorie malnutrition; J96.01 Acute respiratory failure with hypoxia; I13.0 Hypertensive heart and chronic kidney disease with heart failure and stage 1 through stage 4 chronic kidney disease, or unspecified chronic kidney disease; N18.9 Chronic kidney disease, unspecified; I42.9 Cardiomyopathy, unspecified; I48.0 Paroxysmal atrial fibrillation; S90.921A Unspecified superficial injury of right foot, initial encounter; X58.XXXA Exposure to other specified factors, initial encounter; I49.5 Sick sinus syndrome; R23.4 Changes in skin texture; E87.0 Hyperosmolality and hypernatremia; G89.4 Chronic pain syndrome; I87.2 Venous insufficiency (chronic) (peripheral); E78.5 Hyperlipidemia, unspecified; J44.9 Chronic obstructive pulmonary disease, unspecified; Z86.73 Personal history of transient ischemic attack (TIA), and cerebral infarction without residual deficits; Z95.0 Presence of cardiac pacemaker; Z79.01 Long term (current) use of anticoagulants; Z78.1 Physical restraint status; Z79.899 Other long term (current) drug therapy; Y93.89 Activity, other specified; Y92.89 Other specified places as the place of occurrence of the external cause; Y99.8 Other external cause status
CPT/HCPCS: 31500; 36415; 36600; 70450; 71045; 80053; 80202; 80305; 81001; 81003; 82550; 82803; 82948; 83605; 83735; 83880; 84100; 84439; 84443; 84484; 85025; 85610; 85730; 87040; 87070; 87081; 87086; 87186; 87205; 92610; 93005; 94002; 94003; 94640; 94660; 96365; 96375; 96376; 97161-GP; 99291; A4649; C1751; C1758; C9113; G0480; G0482; J0282; J1650; J1940; J2060; J2270; J2405; J2543; J2704; J3010; J3370; J3490; J7030; J7060; J7613; J7620; Q0092